=== PATIENT | female | born 1955 | race Caucasian/White ===

== ENCOUNTER 2019-05-12 15:25 | Inpatient (IN) | payer MEDICARE ==
[~2019-05-12] VITALS: Ht 152.4 cm; Wt 66.7 kg
[~2019-05-12 15:25] MED LIST: ASPIRIN EC81 MG PO; ASPIRIN81 MG PO; CATAPRES0.1 MG PO; CLONIDINE HCL0.1 MG PO; CRESTOR40 MG PO; ESIDRIX25 MG PO; FIORICET1 EA PO; FLUOXETINE HCL40 MG PO; GABAPENTIN300 MG PO; IMITREX25 MG PO; L-METHYLFOLATE15 MG PO; LEXAPRO10 MG PO; LISINOPRIL40 MG PO; METOPROLOL TART50 MG PO; NORVASC10 MG PO; OMEPRAZOLE20 MG PO; PROMETHAZINE HC50 MG PO; PROTONIX40 MG/ML PO; SAVELLA50 MG PO; ULTRAM 50MG50 MG PO; ZOCOR20 MG PO
[2019-05-12 16:09] LABS: BASOPHILS # (AUTO) 0.1 (0.0-0.1); BASOPHILS % 0.9 % (0.0-1.0); EOSINOPHILS # (AUTO) 0.3 (0.0-0.4); EOSINOPHILS % 4.7 % (0.0-6.0); HEMOGLOBIN 12.3 g/dL (12.0-16.0); LYMPHOCYTES # (AUTO) 1.9 (1.0-3.2); LYMPHOCYTES % 33.2 % (18.0-39.1); MEAN CORPUSCULAR HEMOGLOBIN 28.3 pg (28-32); MEAN CORPUSCULAR HGB CONC 31.5 g/dL (31-35); MEAN CORPUSCULAR VOLUME 89.9 fL (81-99); MONOCYTES # (AUTO) 0.4 (0.2-0.8); MONOCYTES % 7.2 % (4.4-11.3); NEUTROPHILS % 53.6 % (38.7-80.0); PLATELET COUNT 188 x10e3/uL (140-360); RED BLOOD COUNT 4.34 x10e6/uL (3.6-5.1); RED CELL DISTRIBUTION WIDTH 16.5 % (11.7-14.4)
[2019-05-12 16:17] LABS: INR 0.89; PROTHROMBIN TIME 12.5 seconds (11.9-14.5)
[2019-05-12 16:18] LABS: PARTIAL THROMBOPLASTIN TIME 26.7 seconds (23.8-35.5)
[2019-05-12] MEDS ORDERED: SODIUM CHLORIDE 0.9% 1000ML 1,000 ML IV STA (16:28)
[2019-05-12] MEDS ORDERED: SODIUM CHLORIDE 0.9% 1000ML 500 ML IV STA (16:28)
[2019-05-12] MEDS ORDERED: FAMOTIDINE 20 MG/2 ML VIAL IV STA (16:28)
[2019-05-12 16:31] LABS: ALANINE AMINOTRANSFERASE 14 IU/L (0-55); ALBUMIN 3.9 g/dL (3.5-5.0); ALBUMIN/GLOBULIN RATIO 1.3 (0.8-2.0); ALKALINE PHOSPHATASE 68 IU/L (40-150); ANION GAP 15.5 mmol/L (8-16); BLOOD UREA NITROGEN 18 mg/dL (7-26); BUN/CREATININE RATIO 12 (6-25); CARBON DIOXIDE 19 mmol/L (22-29); CHLORIDE 109 mmol/L (98-107); CREATINE KINASE 29 IU/L (29-168); CREATININE, SERUM 1.49 mg/dL (0.57-1.11); EST GLOMERULAR FILTRATION RATE 35 ML/MIN (60-); GLUCOSE 93 mg/dL (74-118); POTASSIUM 3.5 mmol/L (3.5-5.1); SODIUM 140 mmol/L (136-145)
--- NOTE | 2019-05-12 16:32 | Diagnostic Imaging Report ---
CT BRAIN WO HISTORY: Altered mental status COMPARISON: Reports from MRI of the brain 11/29/[address] 11/28/2016 Technique: Noncontrast axial scans were obtained from skull base to the vertex. Coronal and sagittal reconstructions obtained from the axial data. One or more of the following dose reduction techniques were used: Automated exposure control, adjustment of the mA and/or kV according to patient size, and/or utilization of iterative reconstruction technique. DISCUSSION: Scalp/Skull: Unremarkable. Brain sulci: Mildly prominent. Ventricles: Compensatory dilatation. Extra-axial spaces: No masses or fluid collections. Carotid siphon calcifications are present. Parenchyma: Mild bilateral deep white matter hypodensity is likely chronic microvascular ischemic change. There is an associated old left caudate lacunar infarct. Old focal cortical infarcts are seen in the left inferior parietal lobule and right inferior occipital lobe. Otherwise, no masses, hemorrhage, or large vascular territory acute infarct. Dural sinuses: No abnormal densities. Sellar/Suprasellar region: Intact. Skull base: Intact. Incidental findings: None. IMPRESSION: 1. No acute intracranial abnormalities. 2. Mild supratentorial chronic microvascular ischemic change. Mild generalized cerebral volume loss. 3. Old small left parietal and right occipital cortical infarct. Signed by: Dr. Sohail Moreira M.D. on 05/12/2019 4:28 PM
[2019-05-12 16:34] LABS: CLARITY,URINE SL CLOUDY (CLEAR); COLOR,URINE YELLOW (YELLOW); LEUKOCYTE ESTERASE ,URINE TRACE (NEGATIVE); NITRITE,URINE NEGATIVE (NEGATIVE)
[2019-05-12 16:35] LABS: BILIRUBIN,URINE 1+ (NEGATIVE); KETONES,URINE NEGATIVE (NEGATIVE); PROTEIN,URINE DIPSTICK 1+ (NEGATIVE); URINE UROBILINOGEN 0.2 mg/dL (0.2 - 1)
--- NOTE | 2019-05-12 16:35 | Diagnostic Imaging Report ---
EXAM: CHEST SINGLE (PORTABLE) DATE: 05/12/2019 3:49 PM INDICATION: Altered mental status COMPARISON: None FINDINGS: The trachea is midline. There are mild left basilar opacities suggestive of atelectasis. The lungs are otherwise symmetrically expanded without evidence for large focal consolidation, pneumothorax, or significant pleural effusion. The cardiomediastinal silhouette and pulmonary vasculature are within normal limits. No acute osseous abnormality is identified. The surrounding soft tissues are unremarkable. IMPRESSION: No acute cardiopulmonary process identified. Signed by: Dr. Cl Baca MD on 05/12/2019 4:32 PM
[2019-05-12] MEDS ORDERED: ONDANSETRON HCL INJ 2MG/ML 2ML 2 MG/ML VIAL IV PRN (16:45)
[2019-05-12 16:46] LABS: AMORPHOUS SEDIMENT,URINE MODERATE (FEW); BACTERIA,URINE MODERATE /HPF; EPITHELIAL CELLS,URINE MANY /LPF; MUCUS,URINE FEW (RARE); RBC,URINE 0-5 /HPF (0-5); TRANSITIONAL EPI CELLS,URINE MODERATE
[2019-05-12 17:00] LABS: MAGNESIUM 2.2 MG/DL (1.3-2.1)
[2019-05-12] MEDS ORDERED: FAMOTIDINE 20 MG/2 ML VIAL IV SCH (17:00)
--- NOTE | 2019-05-12 18:11 | NUR ---
Received patient from ER. Awake, alert. Respiration even and unlabored without SOB. Call light in reach.
[2019-05-12 18:27] VITALS: BP 147/77
[2019-05-12 19:00] VITALS: BP 132/71
--- NOTE | 2019-05-12 19:00 | NUR ---
Report given to assistant shift supervisor. Respiration even and unlabored without SOB. Call light in reach. Spouse at bedside.
[2019-05-12 20:00] VITALS: BP 132/71
[2019-05-12] MEDS: CEFTRIAXONE SOD 1 GM/NS 50 ML 50 ML IV SCH (20:22)
[2019-05-12] MEDS: SODIUM CHLORIDE 0.9% 1000ML 1,000 ML IV SCH (20:22)
[2019-05-12] MEDS ORDERED: GABAPENTIN 300 MG CAP PO SCH (21:00)
[2019-05-12] MEDS ORDERED: GABAPENTIN 400 MG CAP PO SCH (21:00)
[2019-05-12] MEDS ORDERED: ARICEPT5 MG PO (23:14)
[2019-05-12] MEDS ORDERED: LOSARTAN POTASS25 MG PO (23:14)
[2019-05-12] MEDS ORDERED: HYDROCHLOROTHIA25 MG PO (23:14)
[2019-05-12] MEDS ORDERED: LOPRESSOR25 MG PO (23:14)
[2019-05-12] MEDS ORDERED: OMEPRAZOLE40 MG PO (23:14)
[2019-05-12] MEDS ORDERED: ATORVASTATIN CA20 MG PO (23:14)
[2019-05-12] MEDS ORDERED: ALPRAZOLAM1 MG PO (23:14)
[2019-05-12] MEDS ORDERED: SERTRALINE HCL100 MG PO (23:14)
[2019-05-12] MEDS ORDERED: TRAZODONE HCL50 MG PO (23:14)
[2019-05-12] MEDS ORDERED: HYDROXYZINE HCL25 MG PO (23:14)
[2019-05-12] MEDS ORDERED: SPIRONOLACTONE25 MG PO (23:14)
[2019-05-13] VITALS (10 sets, daily range): BP systolic 117–162; BP diastolic 60–84
[2019-05-13 02:51] LABS: BASOPHILS % 0.9 % (0.0-1.0); EOSINOPHILS # (AUTO) 0.3 (0.0-0.4); EOSINOPHILS % 5.7 % (0.0-6.0); HEMATOCRIT 30.7 % (34.2-44.1); HEMOGLOBIN 10.1 g/dL (12.0-16.0); LYMPHOCYTES # (AUTO) 1.8 (1.0-3.2); LYMPHOCYTES % 40.5 % (18.0-39.1); MEAN CORPUSCULAR HEMOGLOBIN 29.2 pg (28-32); MEAN CORPUSCULAR HGB CONC 32.9 g/dL (31-35); MEAN CORPUSCULAR VOLUME 88.7 fL (81-99); MONOCYTES # (AUTO) 0.3 (0.2-0.8); NEUTROPHILS % 45.7 % (38.7-80.0); PLATELET COUNT 152 x10e3/uL (140-360); RED BLOOD COUNT 3.46 x10e6/uL (3.6-5.1); RED CELL DISTRIBUTION WIDTH 16.4 % (11.7-14.4)
[2019-05-13 03:54] LABS: ALBUMIN 2.9 g/dL (3.5-5.0); ALBUMIN/GLOBULIN RATIO 1.3 (0.8-2.0); ANION GAP 12.2 mmol/L (8-16); CREATININE, SERUM 1.22 mg/dL (0.57-1.11); PHOSPHORUS 4.1 MG/DL (2.3-4.7); POTASSIUM 3.2 mmol/L (3.5-5.1)
[2019-05-13 04:17] LABS: CREATINE KINASE 19 IU/L (29-168)
[2019-05-13] MEDS: SODIUM CHLORIDE 0.9% 1000ML 1,000 ML IV SCH (04:46)
[2019-05-13] MEDS ORDERED: PRAZOSIN HCL1 MG PO (05:41)
[2019-05-13] MEDS ORDERED: ONDANSETRON HCL INJ 2MG/ML 2ML 2 MG/ML VIAL IV PRN (06:15)
[2019-05-13] MEDS ORDERED: HYDRALAZINE HCL 20 MG/ML VIAL IV PRN (06:15)
[2019-05-13] MEDS ORDERED: CEFTRIAXONE SOD 1 GM/NS 50 ML 50 ML IV SCH (06:15)
[2019-05-13] MEDS ORDERED: ACETAMINOPHEN 325 MG TAB PO PRN (06:15)
[2019-05-13] MEDS ORDERED: ALPRAZOLAM 1 MG TAB PO PRN (06:15)
[2019-05-13] MEDS ORDERED: TRAZODONE HCL 50 MG TAB PO PRN ×2 (06:15→11:30)
--- NOTE | 2019-05-13 06:43 | NUR ---
New consult called for Dr. Osorio. No new orders will see patient today.
[2019-05-13] MEDS ORDERED: POTASSIUM CHLORIDE 20 MEQ TAB CR PO ONE (06:50)
--- NOTE | 2019-05-13 06:54 | NUR ---
New consult called for dr rogers.
[2019-05-13 06:57] LABS: CHOL/HDL RATIO 5.2 (3.0-3.6)
[2019-05-13 07:17] LABS: THYROID STIMULATING HORMONE 1.834 uIU/mL (0.350-4.940)
[2019-05-13] MEDS ORDERED: PANTOPRAZOLE SOD 40 MG TABEC PO SCH (07:30)
[2019-05-13] MEDS ORDERED: ESCITALOPRAM OXALATE 10 MG TAB PO SCH (09:00)
[2019-05-13] MEDS ORDERED: AMLODIPINE BESYLATE 10 MG TAB PO SCH (09:00)
[2019-05-13] MEDS: THIAMINE HCL INJ 100 MG/ML 2ML VIAL IV SCH (09:13)
[2019-05-13] MEDS: ASPIRIN 81 MG ENTERIC COATED PO SCH (09:15)
[2019-05-13] MEDS: HYDROCHLOROTHIAZIDE 25 MG TAB PO SCH (09:15)
[2019-05-13] MEDS: SERTRALINE HCL 100 MG TAB PO SCH (09:15)
[2019-05-13 11:11] LABS: CREATINE KINASE MB 0.5 ng/mL (0-5.0)
[2019-05-13] MEDS: ALPRAZOLAM 0.5 MG TAB PO PRN ×2 (12:06→20:39)
--- NOTE | 2019-05-13 13:21 | NUR ---
Back from MRI without distress. States she has a headache. Will continue to monitor
--- NOTE | 2019-05-13 14:15 | Diagnostic Imaging Report ---
Examination: MRI BRAIN WO CONTRAST History: Altered mental status. Confusion. Comparison studies: Head CT performed May 12, 2019 Technique: Axial DWI, FLAIR, T2, GRE or SWI, and axial, coronal and sagittal T1. Intravenous contrast: None Findings: Scalp: No abnormal signal. No masses. Bone marrow: Normal in signal intensity. Brain volume: Adequate for age. No volume loss. Ventricles: Normal in size and configuration. No hydrocephalus. Extra-axial spaces: No abnormalities. Parenchyma: There are punctate and subtle confluent areas of T2/FLAIR hyperintensity in the periventricular and subcortical white matter, nonspecific. Cortical-based area of chronic infarct is demonstrated in the superior parietal lobule. No masses, hemorrhage, or acute vascular insults. Suprasellar and sellar region: No abnormalities. Craniocervical junction: No abnormalities. The foramen magnum is patent. No Chiari malformations. Vessels: Normal flow-voids in the arteries and sinuses. Additional findings:None. IMPRESSION: No acute intracranial abnormalities. Mild chronic microvascular ischemic change. Chronic infarct in the left MCA-SALES TEAM RECRUITER watershed/ external border zone. Signed by: Dr. Beena Sandoval M.D. on 05/13/2019 2:11 PM
[2019-05-13] MEDS: CEFTRIAXONE SOD 1 GM/NS 50 ML 50 ML IV SCH (16:55)
--- NOTE | 2019-05-13 17:10 | NUR ---
ST Note: order for bedside swallow eval and speech and language eval noted. bedside swallow eval completed. speech and language eval deferred due to arrival of Dr. Osorio. will f/u to complete speech and language eval tomorrow 05/14/19.
--- NOTE | 2019-05-13 19:28 | Consultation ---
DATE OF CONSULTATION: 05/13/2019 Psychiatric Consultation REASON FOR CONSULTATION: To evaluate the patient's psychosis. HISTORY OF PRESENT ILLNESS: The patient is 64 years old female admitted to the hospital for altered mental status. Psychiatric consultation is called to evaluate the patient's psychosis. As per the medical record, the patient has history of CVA, hypertension and also dementia. Upon evaluation today, the patient is found to be in the room. She is alert, awake, and oriented to self, place and year, although she does the year. She knows the current president, but does not know the last president. She becomes tearful when she talks about her son who in a car accident a few years back. She reports depression. She denies any suicidal ideation and she wants to live for her great grand kids. She denies any issue with sleep. She reports intermittent issue with appetite. She denies any hallucination. The patient states her has been cussing at her for no reason and lying to her. She appears somewhat suspicious. She agrees for Psychiatry to talk to the family members for collateral information. As per nursing staff, the patient has been intermittently confused. She has been having hallucinations as per report. She has been calm and not agitated. PAST PSYCHIATRIC HISTORY: The patient reported seeing a provider at [facility]. She was diagnosed with depression, anxiety, and panic attack. She attempted suicide once in the past. She denies alcohol or drug abuse. FAMILY HISTORY: Her son who had paranoid schizophrenia. SOCIAL HISTORY: The patient lives with her , daughter and grand son. MENTAL STATUS EXAM: The patient is an elderly female. She is alert, awake and oriented to situation. Her mood is depressed. Affect is congruent with mood . Psychomotor status is not restless. She denies any suicidal or homicidal ideation. She denies any hallucination. Thought process is concrete. No delusion elicited. Insight and judgment fair. Memory appears to be grossly impaired. There may be some delusion. CURRENT MEDICATIONS: 1. Zoloft 200 mg p.o. daily. 2. Hydrochlorothiazide. 3. Aspirin. 4. Pantoprazole. 5. Thiamine. 6. Ceftriaxone. 7. Trazodone 100 mg p.o. at bedtime as needed. 8. Aricept 5 mg p.o. at bedtime. 9. Xanax p.o. b.i.d. as needed. 10. Minipress 1 mg p.o. at bedtime. 11. Atorvastatin. 12. Hydralazine. 13. Ondansetron. 14. Acetaminophen. CURRENT LABS: WBC is 4.40, RBC 3.46, hemoglobin 10.1, hematocrit 30.7 and platelets 152. Chemistry, sodium is 142, potassium 3.2, chloride 112, CO2 of 21, BUN 17, creatinine 1.22. AST 8, ALT 9. ASSESSMENT: 1. Major depressive disorder, recurrent, moderate. 2. Unspecified psychosis/delirium. 3. Unspecified dementia with behavior disturbances. PLAN OF TREATMENT: 1. Increase Aricept to 10 mg p.o. at bedtime. 2. Reduce Xanax to 0.5 mg p.o. b.i.d. 3. Continue Minipress 1 mg p.o. at bedtime. 4. Continue Zoloft 200 mg p.o. daily. 5. Add Abilify 2 mg p.o. daily. 6. Monitor for mood. 7. Supportive therapy. Thank you for this consultation. I called the over the phone with the patient's permission, but unable to reach him and voicemail was left. Dictated by Nany Tong PA-C Carrol Urena MD QTV/MODL /[id number]
--- NOTE | 2019-05-13 19:41 | NUR ---
Received bedside report from day nurse. Patient awake and resting in bed, no s/s of distress or c/o pain at this time. All safety measures in place. Will continue to monitor.
[2019-05-13] MEDS ORDERED: ATORVASTATIN 40 MG TAB PO SCH (21:00)
[2019-05-13] MEDS ORDERED: PRAZOSIN HCL 1 MG CAP PO SCH (21:00)
[2019-05-13] MEDS ORDERED: DONEPEZIL HCL 5 MG TAB PO SCH ×2 (21:00)
[2019-05-13 21:08] LABS: AMPHETAMINES SCREEN,URINE NEGATIVE (NEGATIVE); BENZODIAZEPINES SCREEN,URINE POSITIVE (NEGATIVE); PHENCYCLIDINE SCREEN,URINE NEGATIVE (NEGATIVE)
[2019-05-14] VITALS: BP 135/61
[2019-05-14 03:47] LABS: EOSINOPHILS # (AUTO) 0.2 (0.0-0.4); EOSINOPHILS % 5.5 % (0.0-6.0); HEMATOCRIT 34.2 % (34.2-44.1); HEMOGLOBIN 10.9 g/dL (12.0-16.0); LYMPHOCYTES # (AUTO) 1.5 (1.0-3.2); LYMPHOCYTES % 40.3 % (18.0-39.1); MEAN CORPUSCULAR HEMOGLOBIN 28.7 pg (28-32); MEAN CORPUSCULAR HGB CONC 31.9 g/dL (31-35); MONOCYTES # (AUTO) 0.2 (0.2-0.8); MONOCYTES % 6.3 % (4.4-11.3); NEUTROPHILS # (AUTO) 1.8 (2.1-6.9); NEUTROPHILS % 46.6 % (38.7-80.0); PLATELET COUNT 156 x10e3/uL (140-360); RED CELL DISTRIBUTION WIDTH 16.3 % (11.7-14.4)
[2019-05-14 04:00] VITALS: BP 118/66
[2019-05-14 04:10] LABS: ANION GAP 13.3 mmol/L (8-16); CALCIUM 9.2 mg/dL (8.4-10.2); CREATININE, SERUM 1.14 mg/dL (0.57-1.11); POTASSIUM 3.3 mmol/L (3.5-5.1)
[2019-05-14] MEDS ORDERED: POTASSIUM CHLORIDE 20 MEQ TAB CR PO STA (06:03)
[2019-05-14] MEDS ORDERED: ARICEPT5 MG PO (06:09)
[2019-05-14] MEDS ORDERED: ALPRAZOLAM0.5 MG PO (06:09)
[2019-05-14] MEDS ORDERED: VITAMIN B-121000 MCG PO (06:19)
[2019-05-14] MEDS ORDERED: ACETAMIN/BUTALBITAL/CAFFEINE TAB PO ONE (06:30)
--- NOTE | 2019-05-14 07:08 | NUR ---
Bedside report given to day nurse. Patient resting in bed, no s/s of distress or c/o pain at this time. All safety measures in place.
[2019-05-14 07:38] VITALS: BP 136/74
[2019-05-14 08:00] VITALS: BP 136/74
--- NOTE | 2019-05-14 08:32 | NUR ---
Discharge instructions and prescriptions given to the patient, she verbalized understanding. She is trying to arrange transportation.
[2019-05-14] MEDS ORDERED: CYANOCOBALAMIN 1,000 MCG TAB PO SCH (09:00)
[2019-05-14] MEDS: THIAMINE HCL INJ 100 MG/ML 2ML VIAL IV SCH (09:00)
[2019-05-14] MEDS ORDERED: ARIPIPRAZOLE 2 MG TABLET PO SCH (09:00)
[2019-05-14] MEDS: ASPIRIN 81 MG ENTERIC COATED PO SCH (09:14)
[2019-05-14] MEDS: HYDROCHLOROTHIAZIDE 25 MG TAB PO SCH (09:15)
[2019-05-14] MEDS: SERTRALINE HCL 100 MG TAB PO SCH (09:15)
--- NOTE | 2019-05-14 11:09 | NUR ---
Spoke to pt at bedside. Declines need for home health therapy at this time. Pt states she has been getting up and walking around her hospital room. States she has a rollator and rolling walker at home and her family is there for assistance.
--- NOTE | 2019-05-14 11:18 | NUR ---
Patient left the floor via wheelchair, she is discharged home.
--- NOTE | 2019-05-14 16:09 | Consultation ---
DATE OF CONSULTATION: 05/13/2019 Neurology Consult Note HISTORY OF PRESENT ILLNESS: Ms. Connor is a 64-year-old woman with past medical history significant for hypertension, hyperlipidemia, prior transient ischemic attack, prior stroke with residual dysarthria and right hemiparesis, and demential, admitted to [facility] as an inpatient on May 12, 2019, with worsening confusion. Unfortunately, there are no family members available to provide a medical history. History is obtained from review of the electronic medical record. Ms. Connor was brought to the emergency center at [facility] on May 12, 2019, with worsening of baseline confusion, worsening of baseline dysarthria, and possible worsening of baseline right hemiparesis since the morning of admission. Upon arriving in the emergency center, the patient's temperature was 99.2, blood pressure was 187/99 mmHg, and pulse was 65 beats per minute. The neurological examination in the emergency department was significant for dysarthria. No other deficits were noted. Specifically, there were no noted deficits in attention, orientation, cranial nerves, strength, or sensation. While in the emergency center, routine blood and urine studies were significant for an elevated creatinine of 1.49 with an estimated GFR of 35. A urinalysis showed evidence of possible urinary tract infection. A CT of the brain without contrast performed in the emergency center revealed no acute ischemia or hemorrhage. Ms. Connor was subsequently admitted to [facility] as an inpatient for further evaluation and treatment of her symptoms. As stated above, the patient experienced stroke in November 2016 in the left middle cerebral artery-posterior cerebral artery distribution. Residual deficits from the stroke include dysarthria, right hemiparesis, right hemihypoesthesia, poor balance, impairment of gait. According to the patient, she was diagnosed with dementia approximately one month ago. When asked how the diagnosis was made, the patient responds it was done by "the doctor taking a picture of my brain." Ms. Connor could not recall the name of her neurologist. The patient is taking methadone 10 mg by mouth at bedtime daily. On day prior to admission, the patient underwent a nuclear cardiac stress test. She reportedly experienced a "bad reaction" to the injected dye and had to be transferred to the emergency center for further care. During this time, Ms. Connor reports seeing her mother. The patient states her mother told her, "it is not time for you yet," then disappeared. Ms. Connor does not report fevers or chills over the past few days. She does not report shortness of breath, wheezing, or productive cough. The patient does report abdominal pain with frequent bouts of diarrhea over the past 2 to 3 days. Ms. Connor reports a sharp pain with urination, vaginal discharge, urinary frequency, and urinary urgency. The patient does report a history of bladder and bowel incontinence. REVIEW OF SYSTEMS: Abdominal pain, diarrhea, bladder/bowel incontinence, urinary frequency, urinary urgency, sharp pain with urination, vaginal discharge, confusion, dysarthria, weakness of the right arm and right leg, numbness over the right arm and right leg, visual hallucinations. Otherwise, a 12-point review of systems is negative. PAST MEDICAL HISTORY: 1. Hypertension. 2. Hyperlipidemia. 3. Chronic kidney disease, stage 3. 4. Depression/anxiety disorder. 5. Prior transient ischemic attack. 6. Prior stroke with residual deficits as per the history of present illness. 7. Dementia, prior cardiac arrest. PAST SURGICAL HISTORY: 1. Partial hysterectomy. 2. Unilateral oophorectomy. 3. Abdominoplasty/breast reduction. 4. Left arm surgery. PAST HOSPITALIZATIONS: Surgeries/procedures as listed: 1. Multiple hospitalizations for hypertensive urgency/emergency. 2. Transient ischemic attack. 3. Stroke. FAMILY MEDICAL HISTORY: The patient's father is . His medical history included diabetes mellitus and stroke. Ms. Connor is mother is . Her medical history included diabetes mellitus, stroke, and cancer. Ms. Connor has two siblings, a brother and a sister, both of whom are alive. Both siblings have diabetes mellitus. The sister has had cancer as well. SOCIAL HISTORY: Ms. Connor is . She is more awake. The patient does not report current or prior tobacco, alcohol, or recreational drug use. HOME MEDICATIONS: 1. Alprazolam 0.5 mg by mouth twice daily as needed for anxiety. 2. Atorvastatin 40 mg by mouth at bedtime daily. 3. Donepezil 10 mg by mouth at bedtime daily. 4. Hydrochlorothiazide 50 mg by mouth daily. 5. Losartan 25 mg by mouth daily. 6. Omeprazole 40 mg by mouth daily. 7. Prazosin 1 mg by mouth at bedtime daily. 8. Sertraline 200 mg by mouth daily. 9. Trazodone 100 mg by mouth at bedtime as needed for insomnia. HOSPITAL MEDICATIONS: 1. Acetaminophen. 2. Alprazolam. 3. Aripiprazole. 4. Aspirin. 5. Atorvastatin. 6. Ceftriaxone. 7. Donepezil. 8. Hydralazine. 9. Hydrochlorothiazide. 10. Zofran. 11. Protonix. 12. Prazosin. 13. Sertraline. 14. Thiamine. 15. Trazodone. ALLERGIES: NO KNOWN DRUG ALLERGIES. NO KNOWN FOOD ALLERGIES. NO KNOWN ALLERGIES TO LATEX. NO KNOWN ALLERGIES TO IODINE OR OTHER CONTRAST MATERIALS. PHYSICAL EXAMINATION: VITAL SIGNS: Height 60 inches, weight 147 pounds, and BMI 28.7 kg/m2. Blood pressure 156/81 mmHg, pulse 68 beats per minute, respiratory rate 20 breaths per minute, and oxygen saturation 99% on room air. GENERAL: The patient is awake and alert, does not appear distressed. Overweight. Inconsistently follows commands. HEENT: Normocephalic and atraumatic. Pupils are equal, round, and reactive to light. Moist mucous membranes. NECK: Supple. No appreciable thyromegaly. No appreciable carotid bruits. CARDIOVASCULAR: S1 and S2, regular rate and rhythm. No murmurs, rubs, or gallops. RESPIRATORY: Clear to auscultation bilaterally. No wheeze, rhonchi, or rales. EXTREMITIES: The skin is warm and dry. No clubbing, cyanosis, or edema. The posterior tibial and dorsalis pedis pulses are 2+ and symmetric. SKIN: No rashes or lesions. NEUROLOGIC: Memory/Attention: The patient is awake and alert, oriented to person, place (hospital, [facility], [facility] [place], state), time (month, year), and minimally to situation. Cranial Nerves: Cranial nerve I - not tested. Cranial nerve II, III, IV, and - pupils are equal and round, react briskly to light (from 4 mm to 2 mm). Extraocular movements are grossly intact. No nystagmus. Cranial nerve V - sensation to light touch and pinprick is diminished over the right V1 through V3 distributions. Strength in the temporalis and masseter muscles is within normal limits. Cranial nerve VII - the face is subtly asymmetric on the right as are all facial movements. Very mild right central facial weakness is appreciated. Cranial nerve VIII - hearing is diminished to finger rub bilaterally. Cranial nerve IX, complicated-the soft palate elevates equally and symmetrically. Cranial nerve XI strength of the bilateral sternocleidomastoid and trapezius muscles. Cranial nerve XII-tongue protrudes midline and moves symmetrically from [id number]. Strength: Bulk is diminished in the right arm and right leg. Strength is 5/5 in the left deltoid, biceps, triceps, wrist flexors and extensors, finger flexors and extensors, intrinsic hand muscles, hip flexors, knee flexors and extensors, ankle dorsiflexion and plantar flexion, and intrinsic foot muscles. Tone is normal in the left arm and left leg. Strength is grossly 4/5 in the right arm flexors and 4- /5 in the right arm extensors. Strength is grossly 4- out of five in the right leg flexors and 4/5 in the right leg extensors. Tone is mildly increased in the right arm and right leg. DTRs: Deep tendon reflexes are 2+ at the left triceps, biceps, brachioradialis, patella, and Achilles. Deep tendon reflexes are 3+ at the right triceps, biceps, brachioradialis, patella, and Achilles. Plantar responses are flexor on the left, mute on the right. Sensation: Sensation is diminished to light touch and pinprick over the right arm and right leg. Cerebellar: [id number] and heel-weiss movements are dysmetric on the right, but within the bounds of paresis. Gait: Deferred. Speech: Spontaneous speech is mildly dysarthric with possible receptive aphasia. Repetition is intact. Involuntary movements: None. Pronator Drift: Right arm and right leg. LABORATORY DATA: A most recent comprehensive metabolic panel significant for potassium of 3.2, chloride 112, carbon dioxide of 21, creatinine of 1.22, GFR 44, calcium of 8.0, total protein is 5.2, and albumin of 2.9. Cardiac enzymes are negative x3. Lipase 44. B-natriuretic peptide 120.6. Total cholesterol 165, triglycerides 106, LDL cholesterol 112, and HDL cholesterol 32. TSH 1.834. The CBC with differential and platelets reveals a white blood cell count of 4.40 with a right shift with 45.7% neutrophils, 40.5% lymphocytes, 7.0% monocytes, 5.7% eosinophils,and 0.9% basophils. The hemoglobin and hematocrit 10.1 and 30.7, respectively. The platelet count is 152. A coagulation profile is within normal limits. Urinalysis collected on May, reveals slightly cloudy urine with specific gravity of 1.020, 1+ protein, traceblood, 1+ bilirubin, trace leukocyte esterase, 6-10 white blood cells, moderate bacteriawith moderate urine transitional epithelial cells, moderate amorphous sediment, 2-5 hyaline casts, and few urine mucus. A urine culture collected on May 12, 2019, there was no growth at 18 to 24 hours. Blood cultures collected on May 12, 2019, attending. DIAGNOSTIC STUDIES: Electrocardiogram, 05/12/2019: Normal sinus rhythm at 68 beats per minute. Chest x-ray, 05/12/2019: No acute cardiopulmonary process identified. CT of the brain without contrast, 05/12/2019: On my review, there is no evidence of recent large territorial ischemia, hemorrhage, mass, or mass effect. A chronic lacunar infarct is seen in the left caudate nucleus. Prior vascular insult is observed in the left MCA, PLATING INSPECTOR watershed distribution. There is mild diffuse cerebral atrophy with compensatory dilatation of the ventricles, more than expected for the patient's age. Their findings compatible with [id number] chronic small-vessel ischemic disease. Echocardiogram, 05/13/2019: Ejection fraction 50% to 55%. Concentric left ventricular hypertrophy. Left atrial enlargement. Trace aortic insufficiency and tricuspid regurgitation. Mild mitral regurgitation. MRI of the brain without contrast, 05/13/2019: Unchanged from CT of the brain without contrast, dated 05/12/2019: ASSESSMENT AND PLAN: Ms. Connor is a 64-year-old woman with past medical history as detailed, admitted to [facility] as an inpatient on May 12, 2019, with worsening of baseline confusion, worsening of baseline dysarthria, and possible worsening of baseline right hemipareses. The patient has undergone a thorough neurological examination with findings detailed above. The patient's laboratory data and other diagnostic studies have been reviewed and are documented above. In my opinion, Ms. Connor is experiencing a metabolic encephalopathy (urinary tract infection, acute kidney injury, medication effect, superimposed on baseline dementia. RECOMMENDATIONS: Are as follows: 1. Additional laboratory data will be obtained to evaluate other possible causes of encephalopathy. This will include: An ammonia level, vitamin B1 level, vitamin B 6 level, vitamin B12 level, folate, methylmalonic acid, urine drug screen, and blood alcohol level. Blood and urine cultures have been collected; follow up those results. 2. Dementia: Continue treatment with the patient's home medication of donepezil 10 mg by mouth at bedtime daily. 3. Limit treatment with sedative/hypnotic and pain medications as these will alter the patient's sensorium. 4. Utilize environmental cues to limit delirium. 5. Defer treatment of the remaining medical comorbidities to the primary and other services following the patient. 6. Anticipated disposition: custodial facility in 2-3 days. TIME SPENT: 70 minutes. Thank you for this consultation. I will continue to follow the patient while she remains in the hospital. Hillary Osorio MD CP/GADIEL /[id number] MTDD
--- NOTE | 2019-05-17 04:18 | Discharge Summary ---
ADMISSION DIAGNOSES: Altered mental status with slurred speech; urinary tract infection , present on admission; hypertension with chronic kidney disease stage 3, chronic kidney disease stage 3, anxiety, depression, dementia. DISCHARGE DIAGNOSES: Altered mental status with slurred speech; urinary tract infection , present on admission; hypertension with chronic kidney disease stage 3, chronic kidney disease stage 3, anxiety, depression, dementia; rule out cerebrovascular accident. HISTORY: Hypertension, CVA, CKD stage 3, anxiety, depression, fibromyalgia, dementia. SURGICAL HISTORY: Left arm, lumpectomy, tummy tuck, breast reduction, partial hysterectomy, oophorectomy. FAMILY HISTORY: The patient's mother, father, brother, and sister had diabetes. The patient's sister and mother had cancer. The patient's mother and father had a stroke. SOCIAL HISTORY: Noncontributory. HOSPITAL COURSE: A 64-year-old female admits with complaints of AMS and slurred speech since yesterday. She also complains of left-sided weakness. She says she has been having dysuria for about a month. On admission, the patient's EKG showed normal sinus rhythm. CT of the brain showed no acute abnormalities. MRI of the brain showed no acute abnormality. Blood culture was negative. Urine culture was negative. The patient's urine drug screen came back positive for cannabis and benzos. After speaking to her, the patient admits to smoking marijuana sometimes to help with her fibromyalgia pain. The patient's bilateral carotid Doppler was negative. Echo showed an EF of 50% to 55%. Psychology was consulted, who increased the patient's Aricept and decreased her Xanax. The patient will discharge home with new prescription for Xanax and Aricept. Her home medicines of hydroxyzine were stopped due to the sedating effects. Her metoprolol was stopped due to bradycardia. She remain in normal sinus on tele without the metoprolol and her spironolactone, the patient is unsure why that is on her med rec. The patient passed her swallow evaluation and with minimal assistance per PT evaluation. Her ammonia was within normal limits. Her B12 was low at 81, so she was also given a prescription for B12 supplement. The patient will discharge home and follow up with primary care in 1 to 2 weeks. The patient understands discharge instructions and agrees to plan. Dictated by Lynne Nuno NP MD MICK Rich/GADIEL /[id number]
--- OUTSIDE RECORDS SUMMARY | 2019-05-22 10:38 | XMS REPORT | Summary of Care ---
Author Author Nona Gore R.N. Unknown Address Unknown Phone Unavailable Care Team Providers Care Physiology Teacher Name Role Phone Nona Gore R.N. Unavailable Unavailable BALBIR HERRERA M.D. 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 ( 0.5mg ) Quantity: 180 Active Gabapentin 400 MG TABS TAKE 1 TABLET 3 TIMES DAILY. * Refills: 0 Active Metoprolol Succinate ER 50 MG Oral Tablet Extended Release 24 Hour TAKE 1 TABLET BY MOUTH ONCE DAILY * Quantity: 30 Refills: 3 Active Omeprazole 20 MG Oral Tablet Delayed Release 1 tablet daily * Refills: 0 Active HydrOXYzine HCl - 25 MG Oral Tablet TAKE 1 TABLET TWICE DAILY. * Refills: 0 Active BuPROPion HCl ER (XL) 150 MG Oral Tablet Extended Release 24 Hour TAKE 1 TABLET DAILY * Refills: 1 Active NIFEdipine ER 60 MG Oral Tablet Extended Release 24 Hour TAKE 1 TABLET DAILY * Refills: 1 Active Hydrocodone-Acetaminophen 5-325 MG Oral Tablet TAKE ONE TABLET BY MOUTH EVERY 8 HOURS NEEDED FOR PAIN. * Quantity: 20 Refills: 0 Active Rosuvastatin Calcium 40 MG Oral Tablet TAKE 1 TABLET BY MOUTH DAILY * Refills: 0 Active Lisinopril-Hydrochlorothiazide 20-25 MG Oral Tablet TAKE 1 TABLET DAILY. * Quantity: 90 Refills: 2 Active DULoxetine HCl - 60 MG Oral Capsule Delayed Release Particles TAKE 1 CAPSULE BY MOUTH EVERY DAY DIRECTED * Quantity: 60 Refills: 0 Active Ibuprofen 400 MG Oral Tablet TAKE 1 TABLET BY MOUTH 4 TIMES DAILY NEEDED * Quantity: 120 Refills: 0 BALBIR HERRERA M.D. * Start : 19-Aug-2017 Active Allergies and Adverse Reactions Name Dates Details No Known Drug Allergies (Allergy) Status: Active Past Medical History Name Dates Details History of arthritis (V13.4, Z87.39) Status: Resolved History of Chronic kidney disease, stage III (moderate) (585.3, N18.3) Status: Resolved History of Depressive disorder (311, F32.9) Status: Resolved History of Essential hypertension, benign (401.1, I10) Status: Resolved History of fibromyalgia (V13.59, Z87.39) Status: Resolved History of gastroesophageal reflux (GERD) (V12.79, Z87.19) Status: Resolved History of headache (V13.89, Z87.898) Status: Resolved History of hyperparathyroidism (V12.29, Z86.39) Status: Resolved History of hypothyroidism (V12.29, Z86.39) Status: Resolved History of migraine (V12.49, Z86.69) Status: Resolved History of Morbid obesity (278.01, E66.01) Status: Resolved History of sleep apnea (V13.89, Z86.69) Status: Resolved Procedures Procedure Dates Details History of Hysterectomy Completed History of Breast Surgery Completed History of Biopsy Lymph Node Completed History of Abdominoplasty Completed History of Additional Bilateral Renal Artery Catheterization Via Aorta Completed Immunization Name Dates Details Immunizations not documented Family History Name Dates Details Family history of diabetes mellitus (V18.0, Z83.3) Status: Active Family history of essential hypertension (V17.49, Z82.49) Status: Active Name Dates Details Family history of diabetes mellitus (V18.0, Z83.3) Status: Active Family history of essential hypertension (V17.49, Z82.49) Status: Active Name Dates Details Family history of cardiac disorder (V17.49, Z82.49) Status: Active Social History Name Dates Details - Status: Name Dates Details Never smoker Vital Signs Date Test Result Details No Known Vitals to report Results Date Description Value Details Results not documented Plan of Care Name Dates Details Planned Observations Planned Goals not documented Interventions Provided Medication Changes* Ibuprofen 400 MG Oral Tablet - Renew Instructions Name Dates Details Instructions not documented Encounters Appointment; MARTINEZ LEWIS M.D. Encounter Diagnosis: Problem not documented On: 13-Jun-2017 14:30 Appointment; MARTINEZ LEWIS M.D. Encounter Diagnosis: Problem not documented On: 09-Jul-2017 10:00 Appointment; MARTINEZ LEWIS M.D. Encounter Diagnosis: Problem not documented On: 09-Jul-2017 10:00 Appointment; MARTINEZ LEWIS M.D. Encounter Diagnosis: Problem not documented On: 06-Aug-2017 11:15 Appointment; BALBIR HERRERA M.D. Encounter Diagnosis: Problem not documented On: 19-Aug-2017 9:00
--- OUTSIDE RECORDS SUMMARY | 2019-05-22 10:39 | XMS REPORT ---
Author [facility] Address Unknown Phone Unavailable Care Team Providers Care Ed Transporter Name Role Phone APRIL BARRERA Unavailable Unavailable Payers Payer Name Policy Type Policy Number Effective Date Expiration Date Problems This patient has no known problems. Allergies, Adverse Reactions, Alerts Allergy Name Allergy Type Status Severity Reaction(s) Onset Date Inactive Date Treating Clinician Comments No Known Allergies DA Active U 2019-05-11 00:00:00 No Known Allergies DA Active U 2019-04-22 00:00:00 No Known Allergies DA Active U 2017-04-08 00:00:00 Medications This patient has no known medications. Results Test Description Test Time Test Comments Text Results Atomic Results Result Comments MRI BRAIN WO 2019-05-13 14:08:00 [place] [address] Patient Name: JUSTIN MILLER MR #: [id number] : 1955 Age/Sex: 64/F Req #: [id number] Adm Physician: APRIL BARRERA MD Ordered by: Jessica Anderson MANAGER DOCUMENTATION Report #: [id number] Location: MED/SURG2 Room/Bed: [facility] Procedure: [id number] MRI/MRI BRAIN WO Exam Date: Exam Time: REPORT STATUS: Signed Examination: MRI BRAIN WO CONTRAST History: Altered mental status. Confusion. Comparison studies: Head CT performed May 12, 2019 Technique: Axial DWI, FLAIR, T2, GRE or SWI, and axial, coronal and sagittal T1. Intravenous contrast: None Findings: Scalp: No abnormal signal. No masses. Bone marrow: Normal in signal intensity. Brain volume: Adequate for age. No volume loss. Ventricles: Normal in size and configuration. No hydrocephalus. Extra-axial spaces: No abnormalities. Parenchyma: There are punctate and subtle confluent areas of T2/FLAIR hyperintensity in the periventricular and subcortical white matter, nonspecific. Cortical-based area of chronic infarct is demonstrated in the superior parietal lobule. No masses, hemorrhage, or acute vascular insults. Suprasellar and sellar region: No abnormalities. Craniocervical junction: No abnormalities. The foramen magnum is patent. No Chiari malformations. Vessels: Normal flow- voids in the arteries and sinuses. Additional findings:None. IMPRESSION: No acute intracranial abnormalities. Mild chronic microvascular ischemic change. 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 Signed by: Dr. Norma Sandoval M.D. on 05/13/2019 2:11 PM Dictated By: NORMA JOSEPH MD 1411 Transcribed By: FIONA on 05/13/19 1411 COPY TO: JESSICA ANDERSON MANAGER DOCUMENTATION CHEST SINGLE (PORTABLE) 2019-05-12 16:30:00 [place] [address] Patient Name: JUSTIN MILLER MR #: [id number] : 1955 Age/Sex: 64/F Req #: [id number] Adm Physician: Ordered by: PHANI VALDEZ MANAGER DOCUMENTATION Report #: [id number] Location: ER Room/Bed: Procedure: [id number] DX/CHEST SINGLE (PORTABLE) Exam Date: 05/12/19 Exam Time: 1605 REPORT STATUS: Signed EXAM: CHEST SINGLE (PORTABLE) DATE: 05/12/2019 3:49 PM INDICATION: Altered mental status COMPARISON: None FINDINGS: The trachea is midline. There are mild left basilar opacities suggestive of atelectasis. The lungs are otherwise symmetrically expanded without evidence for large focal consolidation, pneumothorax, or significant pleural effusion. The cardiomediastinal silhouette and pulmonary vasculature are within normal limits. No acute osseous abnormality is identified. The surrounding soft tissues are unremarkable. IMPRESSION: No acute cardiopulmonary process identified. Signed by: Dr. Cl Baca MD on 05/12/2019 4:32 PM Dictated By: CL BACA MD 163 Transcribed By: FIONA on 05/12/191631 COPY TO: PHANI VALDEZ NP CT BRAIN WO 2019-05-12 16:24:00 [place] [address] Patient Name: JUSTIN MILLER MR #: [id number] : 1955 Age/Sex: 64/F Req #: [id number] Adm Physician: Ordered by: PHANI VALDEZ MANAGER DOCUMENTATION Report #: [id number] Location: ER Room/Bed: Procedure: [id number] CT/CT BRAIN WO Exam Date: 05/12/19 Exam Time: 1552 REPORT STATUS: Signed CT BRAIN WO HISTORY: Altered mental status COMPARISO N: Reports from MRI of the brain 11/29/[address] 11/28/2016 Technique: Noncontrast axial scans were obtained from skull base to the vertex. Coronal and sagittal reconstructions obtained from the axial data. One or more of the following dose reduction techniques were used: Automated exposure control, adjustment of the mA and/or kV according to patient size, and/or utilization of iterative reconstruction technique. DISCUSSION: Scalp/Skull: Unremarkable. Brain sulci: Mildly prominent. Ventricles: Compensatory dilatation. Extra-axial spaces: No masses or fluid collections. Carotid siphon calcifications are present. Parenchyma: Mild bilateral deep white matter hypodensity is likely chronic microvascular ischemic change. There is an associated old left caudate lacunar infarct. Old focal cortical infarcts are seen in the left inferior parietal lobule and right inferior occipital lobe. Otherwise, no masses, hemorrhage, or large vascular territory acute infarct. Dural sinuses: No abnormal densities. Sellar/Suprasellar region: Intact. Skull base: Intact. Incidental findings: None. IMPRESSION: 1. No acute intracranial abnormalities. 2. Mild supratentorial chronic microvascular ischemic change. Mild generalized cerebral volume loss. 3. Old small left parietal and right occipital cortical infarct. Signed by: Dr. Sohail Moreira M.D. on 05/12/2019 4:28 PM Dictated By: SOHAIL MOREIRA MD 27 Transcribed By: FIONA on 05/12/191627 COPY TO: PHANI VALDEZ NP BASIC METABOLIC PANEL 2019-05-11 14:30:00 SODIUM (test code=NA) 137 mmol/L 136-145 POTASSIUM (test code=K) 3.9 mmol/L 3.5-5.1 CHLORIDE (test code=CL) 105.0 mmol/L 98-107 CARBON DIOXIDE (test code=CO2) 21.0 mmol/L 21-32 ANION GAP (test code=GAP) 14.9 10-20 GLUCOSE (test code=GLU) 97 mg/dL 74-106 BLOOD UREA NITROGEN (test code=BUN) 19 mg/dL 7-18 GLOMERULAR FILTRATION RATE (test code=GFR) 35 mL/min >=60 Estimated GFR by using Modified MDRD formula.Chronic kidney disease is defined as either kidney damageor GFR <60 mL/min/1.73 m2 for >3 months. CREATININE (test code=CREAT) 1.50 mg/dL 0.55-1.02 Note change in reference range due to change in reagent. BUN/CREATININE RATIO (test code=BUN/CREA) 12.8 10-20 CALCIUM (test code=CA) 9.1 mg/dL 8.5-10.1 HEPATIC FUNCTION [id number] 14:30:00* Test Item Value Reference Range Comments TOTAL PROTEIN (test code=PROT) 7.4 gram/dL 6.4-8.2 ALBUMIN (test code=ALB) 3.9 g/dL 3.4-5.0 GLOBULIN (test code=GLOB) 3.5 gram/dL 2.7-4.2 ALBUMIN/GLOBULIN RATIO (test code=A/G) 1.1 0.75-1.50 BILIRUBIN TOTAL (test code=BILT) 0.70 mg/dL 0.0-1.0 BILIRUBIN DIRECT (test code=BILD) 0.18 mg/dL 0.0-0.20 SGOT/AST (test code=AST) 11 IUnit/L 15-37 SGPT/ALT (test code=ALT) 22 IUnit/L 12-78 ALKALINE PHOSPHATASE TOTAL (test code=ALKP) 72 IUnit/L 45-117 Note change in reference range due to change in reagent. [id number] 14:30:00* Test Item Value Reference Range Comments TROPONIN-I (test code=TROPI) <0.015 ng/mL 0-0.045 - XR CHEST 1 [id number] 14:19:00 FAX: Alfonso Ascencio MD [phone] [place]: [address] St: REG FAX: Siddhartha Moreland DO [phone] Name: JUSTIN MILLER [facility] : 1955 Age/S: 64/F [address] Unit #: [id number] Loc: [place] [address] Phys: Alfonso Ascencio MD Acct: [id number] Dis Date: Status: REG ER PHONE #: [phone] Exam Date: 05/11/2019 1328 FAX #: [phone] Reason: AMS EXAMS: CPT CODE: [id number] XR CHEST 1 V [id number] REASON FOR EXAM: AMS Exam Order Date: 05/11/2019 12:44 PM Ordering M.D.: Alfonso Ascencio MD PROCEDURE: - XR CHEST 1 V COMPARISON: Frontal chest x-ray April 22, 2019 FINDINGS: The lungs are clear. There is no pleural effusion or pneumothorax. Pulmonary vascularity is within normal limits. Cardiomediastinal silhouette is prominent but stable in size. The mediastinal contours are within normal limits. Musculoskeletal structures are within normal limits. The visualized upper abdomen is within normal limits. IMPRESSION: No acute cardiopulmonary process. Location: [facility] ally Signed by Jimmy Gaspar MD on 05/11/2019 at 1419 Repo rted and signed by: Jimmy Gaspar MD CC: Alfonso Ascencio MD; Sudhakar Alegria DO Technologist: MIMA BRYAN RT(R) Trnscrd Date/Time/By: 05/11/2019 (5430) : By: [email or web address] Orig Print D/T: S: 05/11/2019 (9696) PAGE 1 Signed Report BASIC METABOLIC PANEL 2019-05-11 14:08:00* Test Item Value Reference Range Comments SODIUM (test code=NA) 137 mmol/L 136-145 POTASSIUM (test code=K) 3.9 mmol/L 3.5-5.1 CHLORIDE (test code=CL) 105.0 mmol/L 98-107 CARBON DIOXIDE (test code=CO2) mmol/L 21-32 ANION GAP (test code=GAP) 10-20 GLUCOSE (test code=GLU) mg/dL 74-106 BLOOD UREA NITROGEN (test code=BUN) mg/dL 7-18 GLOMERULAR FILTRATION RATE (test code=GFR) mL/min >=60 CREATININE (test code=CREAT) mg/dL 0.55-1.02 BUN/CREATININE RATIO (test code=BUN/CREA) 10-20 CALCIUM (test code=CA) mg/dL 8.5-10.1 HEPATIC FUNCTION [id number] 14:08:00* Test Item Value Reference Range Comments TOTAL PROTEIN (test code=PROT) gram/dL 6.4-8.2 ALBUMIN (test code=ALB) g/dL 3.4-5.0 GLOBULIN (test code=GLOB) gram/dL 2.7-4.2 ALBUMIN/GLOBULIN RATIO (test code=A/G) 0.75-1.50 BILIRUBIN TOTAL (test code=BILT) mg/dL 0.0-1.0 BILIRUBIN DIRECT (test code=BILD) mg/dL 0.0-0.20 SGOT/AST (test code=AST) IUnit/L 15-37 SGPT/ALT (test code=ALT) IUnit/L 12-78 ALKALINE PHOSPHATASE TOTAL (test code=ALKP) IUnit/L 45-117 [id number] 14:08:00* Test Item Value Reference Range Comments TROPONIN-I (test code=TROPI) ng/mL 0-0.045 - CT HEAD/BRAIN W/O [id number] 14:03:00 Name: JUSTIN MILLER [facility] : 1955 Age/S: 64 / F [address] [facility] Unit #: [id number] Loc: [place], [place] [address] Phys: Alfonso Ascencio MD Acct: [id number] Dis Date: Status: REG ER PHONE #: [phone] Exam Date: 05/11/2019 1317 FAX #: [phone] Reason: AMS EXAMS: CPT CODE: [id number] CT HEAD/BRAIN W/O CONT [id number] HISTORY: AMS TECHNIQUE: Noncontrast 2.[address] of the head. Examination acquired within 24 hours of arrival. Automated exposure control for dose reduction. COMPARISON: Noncontrast CT brain April 22, 2019 FINDINGS: No lacerations or contusions of the scalp or facial soft tissues. Calvarium and skull base are intact. No acute hemorrhage. No intracranial mass, mass effect, or midline shift. No effacement of the sulci or barbour- white matter interface. There is a small infarct in the right occipital lobe that is unchanged from the prior exam. There is also cortical atrophy appears similar to the previous study. Mild microvascular ischemic changes of the white matter are noted. Visualized paranasal sinuses are clear. Mastoid air cells and middle ear cavities are clear. Orbital contents are unremarkable. IMPRESSION: No acute intracranial process or appreciable change from prior exam.. Location: [facility] at 1403 Reported and signed by: Jimmy Gaspar MD CC: Alfonso Ascencio MD; Siddhartha Maria DO Technologist:Isai Vang RT(R),(MR),(CT); CTDI: DLP: Trnscb Date/Time: 05/11/2019 (1403) [email or web address] Orig Print D/T: S: 05/11/2019 (9419) PAGE 1 Signed Report CBC W/AUTO [id number] 13:32:00* Test Item Value Reference Range Comments WHITE BLOOD CELL (test code=WBC) 6.0 K/mm3 4.5-12.5 RED BLOOD CELL (test code=RBC) 4.29 mill/mm3 3.7-5.2 HEMOGLOBIN (test code=HGB) 12.0 gram/dL 11.5-15.5 HEMATOCRIT (test code=HCT) 37.9 % 36.0-46.0 MEAN CELL VOLUME (test code=MCV) 88.3 fL 80-98 MEAN CELL HGB (test code=MCH) 28.0 picogram 27.0-33.0 MEAN CELL HGB CONCETRATION (test code=MCHC) 31.7 gram/dL 33.0-36.0 RED CELL DISTRIBUTION WIDTH (test code=RDW) 15.9 % 11.6-16.2 RED CELL DISTRIBUTION WIDTH SD (test code=RDW-SD) 51.6 fL 37.0-51.0 PLATELET COUNT (test code=PLT) 180 K/mm3 150-450 MEAN PLATELET VOLUME (test code=MPV) 10.2 fL 6.7-11.0 NEUTROPHIL % (test code=NT%) 69.0 % 39.0-69.0 IMMATURE GRANULOCYTE % (test code=IG%) 0.3 % 0.0-5.0 LYMPHOCYTE % (test code=LY%) 22.9 % 25.0-55.0 MONOCYTE % (test code=MO%) 5.5 % 0.0-10.0 EOSINOPHIL % (test code=EO%) 1.5 % 0.0-5.0 BASOPHIL % (test code=BA%) 0.8 % 0.0-1.0 NUCLEATED RBC % (test code=NRBC%) 0.0 % 0-0 NEUTROPHIL # (test code=NT#) 4.11 K/mm3 1.8-7.7 IMMATURE GRANULOCYTE # (test code=IG#) 0.02 x10 3/uL 0-0.03 LYMPHOCYTE # (test code=LY#) 1.37 K/mm3 1.0-5.0 MONOCYTE # (test code=MO#) 0.33 K/mm3 0-0.8 EOSINOPHIL # (test code=EO#) 0.09 K/mm3 0.0-0.5 BASOPHIL # (test code=BA#) 0.05 K/mm3 0.0-0.2 NUCLEATED RBC # (test code=NRBC#) 0.00 K/mm3 0.0-0.1 CBC W/AUTO [id number] 13:31:00* Test Item Value Reference Range Comments WHITE BLOOD CELL (test code=WBC) K/mm3 4.5-12.5 RED BLOOD CELL (test code=RBC) mill/mm3 3.7-5.2 HEMOGLOBIN (test code=HGB) 12.0 gram/dL 11.5-15.5 HEMATOCRIT (test code=HCT) 37.9 % 36.0-46.0 MEAN CELL VOLUME (test code=MCV) fL 80-98 MEAN CELL HGB (test code=MCH) picogram 27.0-33.0 MEAN CELL HGB CONCETRATION (test code=MCHC) gram/dL 33.0-36.0 RED CELL DISTRIBUTION WIDTH (test code=RDW) % 11.6-16.2 RED CELL DISTRIBUTION WIDTH SD (test code=RDW-SD) fL 37.0-51.0 PLATELET COUNT (test code=PLT) K/mm3 150-450 MEAN PLATELET VOLUME (test code=MPV) fL 6.7-11.0 NEUTROPHIL % (test code=NT%) % 39.0-69.0 IMMATURE GRANULOCYTE % (test code=IG%) % 0.0-5.0 LYMPHOCYTE % (test code=LY%) % 25.0-55.0 MONOCYTE % (test code=MO%) % 0.0-10.0 EOSINOPHIL % (test code=EO%) % 0.0-5.0 BASOPHIL % (test code=BA%) % 0.0-1.0 NEUTROPHIL # (test code=NT#) K/mm3 1.8-7.7 LYMPHOCYTE # (test code=LY#) K/mm3 1.0-5.0 MONOCYTE # (test code=MO#) K/mm3 0-0.8 EOSINOPHIL # (test code=EO#) K/mm3 0.0-0.5 BASOPHIL # (test code=BA#) K/mm3 0.0-0.2 PROCALCITONIN (PCT)2019-04-27 12:51:00* Test Item Value Reference Range Comments PROCALCITONIN (PCT) (test code=PROCAL) < 0.05 ng/ml Concentration Interpretation (ng/mL) <0.51 Sepsis is not likely. Local bacterial infection is possible. (LOW RISK for progression to Sepsis) 0.51 - 2.00 Sepsis is possible, but other conditions are known to elevate PCT as well. (MODERATE RISK for progression to Sepsis) > 2.00 Sepsis is likely, unless other causes are known. (HIGH RISK for progression to Severe Sepsis or Septic Shock) 10.00 High likelihood of Severe Sepsis or Septic or higher Shock. *Increased PCT levels may not always be related to systemic bacterial infection.*Low PCT levels do not automatically exclude the presence of bacterial infection.*All results should be interpreted taking into account the patients history. BASIC METABOLIC [id number] 12:34:00* Test Item Value Reference Range Comments SODIUM (test code=NA) 142 mmol/L 136-145 POTASSIUM (test code=K) 4.3 mmol/L 3.5-5.1 CHLORIDE (test code=CL) 110.0 mmol/L 98-107 CARBON DIOXIDE (test code=CO2) 26.0 mmol/L 21-32 ANION GAP (test code=GAP) 10.3 10-20 GLUCOSE (test code=GLU) 79 mg/dL 74-106 BLOOD UREA NITROGEN (test code=BUN) 32 mg/dL 7-18 GLOMERULAR FILTRATION RATE (test code=GFR) 38 mL/min >=60 Estimated GFR by using Modified MDRD formula.Chronic kidney disease is defined as either kidney damageor GFR <60 mL/min/1.73 m2 for >3 months. CREATININE (test code=CREAT) 1.40 mg/dL 0.55-1.02 Note change in reference range due to change in reagent. BUN/CREATININE RATIO (test code=BUN/CREA) 22.4 10-20 CALCIUM (test code=CA) 8.8 mg/dL 8.5-10.1 CBC W/AUTO [id number] 11:42:00* Test Item Value Reference Range Comments WHITE BLOOD CELL (test code=WBC) 5.2 K/mm3 4.5-12.5 RED BLOOD CELL (test code=RBC) 3.66 mill/mm3 3.7-5.2 HEMOGLOBIN (test code=HGB) 10.3 gram/dL 11.5-15.5 HEMATOCRIT (test code=HCT) 32.2 % 36.0-46.0 MEAN CELL VOLUME (test code=MCV) 88.0 fL 80-98 MEAN CELL HGB (test code=MCH) 28.1 picogram 27.0-33.0 MEAN CELL HGB CONCETRATION (test code=MCHC) 32.0 gram/dL 33.0-36.0 RED CELL DISTRIBUTION WIDTH (test code=RDW) 14.5 % 11.6-16.2 RED CELL DISTRIBUTION WIDTH SD (test code=RDW-SD) 46.5 fL 37.0-51.0 PLATELET COUNT (test code=PLT) 148 K/mm3 150-450 MEAN PLATELET VOLUME (test code=MPV) 10.2 fL 6.7-11.0 NEUTROPHIL % (test code=NT%) 60.0 % 39.0-69.0 IMMATURE GRANULOCYTE % (test code=IG%) 0.2 % 0.0-5.0 LYMPHOCYTE % (test code=LY%) 28.7 % 25.0-55.0 MONOCYTE % (test code=MO%) 6.2 % 0.0-10.0 EOSINOPHIL % (test code=EO%) 4.1 % 0.0-5.0 BASOPHIL % (test code=BA%) 0.8 % 0.0-1.0 NUCLEATED RBC % (test code=NRBC%) 0.0 % 0-0 NEUTROPHIL # (test code=NT#) 3.09 K/mm3 1.8-7.7 IMMATURE GRANULOCYTE # (test code=IG#) 0.01 x10 3/uL 0-0.03 LYMPHOCYTE # (test code=LY#) 1.48 K/mm3 1.0-5.0 MONOCYTE # (test code=MO#) 0.32 K/mm3 0-0.8 EOSINOPHIL # (test code=EO#) 0.21 K/mm3 0.0-0.5 BASOPHIL # (test code=BA#) 0.04 K/mm3 0.0-0.2 NUCLEATED RBC # (test code=NRBC#) 0.00 K/mm3 0.0-0.1 MANUAL DIFF REQUIRED (test code=MDIFF) NO URINALYSIS [id number] 15:36:00* Test Item Value Reference Range Comments UA COLOR (test code=COLU) YELLOW YELLOW UA APPEARANCE (test code=APPU) CLEAR CLEAR UA GLUCOSE DIPSTICK (test code=DGLUU) NEGATIVE mg/dL NEGATIVE UA BILIRUBIN DIPSTICK (test code=BILU) NEGATIVE mg/dL NEGATIVE UA KETONE DIPSTICK (test code=KETU) TRACE mg/dL NEGATIVE UA SPECIFIC GRAVITY (test code=SGU) 1.031 1.001-1.035 UA BLOOD DIPSTICK (test code=JYOTHI) 0.03 mg/dL (Trace) mg/dL NEGATIVE UA PH DIPSTICK (test code=MOY) 5.5 5.0-8.0 UA PROTEIN DIPSTICK (test code=PROU) 30 (1+) mg/dL NEGATIVE UA UROBILINIOGEN DIPSTICK (test code=URO) Normal mg/dL NEGATIVE UA NITRITE DIPSTICK (test code=CARLY) NEGATIVE NEGATIVE UA LEUKOCYTE ESTERASE W REFLEX (test code=LEUUR) 75 Mariella/uL (1+) Mariella/uL NEGATIVE UA WBC (test code=WBCU) 6-10 per HPF 0-5 UA RBC (test code=RBCU) 0-2 #/HPF 0-5 UA EPITHELIAL CELLS (test code=EPIU) FEW per HPF FEW UA BACTERIA (test code=BACU) FEW #/HPF NONE UA MUCUS (test code=MUCU) FEW #/LPF FEW Urine Source? Clean CatchURINALYSIS [id number] 14:58:00* Test Item Value Reference Range Comments UA COLOR (test code=COLU) YELLOW YELLOW UA APPEARANCE (test code=APPU) CLEAR CLEAR UA GLUCOSE DIPSTICK (test code=DGLUU) NEGATIVE mg/dL NEGATIVE UA BILIRUBIN DIPSTICK (test code=BILU) NEGATIVE mg/dL NEGATIVE UA KETONE DIPSTICK (test code=KETU) TRACE mg/dL NEGATIVE UA SPECIFIC GRAVITY (test code=SGU) 1.031 1.001-1.035 UA BLOOD DIPSTICK (test code=JYOTHI) 0.03 mg/dL (Trace) mg/dL NEGATIVE UA PH DIPSTICK (test code=MOY) 5.5 5.0-8.0 UA PROTEIN DIPSTICK (test code=PROU) 30 (1+) mg/dL NEGATIVE UA UROBILINIOGEN DIPSTICK (test code=URO) Normal mg/dL NEGATIVE UA NITRITE DIPSTICK (test code=CARLY) NEGATIVE NEGATIVE UA LEUKOCYTE ESTERASE W REFLEX (test code=LEUUR) 75 Mariella/uL (1+) Mariella/uL NEGATIVE UA WBC (test code=WBCU) per HPF 0-5 UA RBC (test code=RBCU) per HPF 0-5 UA EPITHELIAL CELLS (test code=EPIU) per HPF Few UA BACTERIA (test code=BACU) per HPF NONE Urine Source? Clean CatchCOMPREHENSIVE METABOLIC [id number] 11:58:00* Test Item Value Reference Range Comments SODIUM (test code=NA) 141 mmol/L 136-145 POTASSIUM (test code=K) 3.2 mmol/L 3.5-5.1 CHLORIDE (test code=CL) 108.0 mmol/L 98-107 CARBON DIOXIDE (test code=CO2) 27.0 mmol/L 21-32 ANION GAP (test code=GAP) 9.2 10-20 GLUCOSE (test code=GLU) 107 mg/dL 74-106 BLOOD UREA NITROGEN (test code=BUN) 29 mg/dL 7-18 GLOMERULAR FILTRATION RATE (test code=GFR) 38 mL/min >=60 Estimated GFR by using Modified MDRD formula.Chronic kidney disease is defined as either kidney damageor GFR <60 mL/min/1.73 m2 for >3 months. CREATININE (test code=CREAT) 1.40 mg/dL 0.55-1.02 Note change in reference range due to change in reagent. BUN/CREATININE RATIO (test code=BUN/CREA) 20.6 10-20 TOTAL PROTEIN (test code=PROT) 6.5 gram/dL 6.4-8.2 ALBUMIN (test code=ALB) 3.1 g/dL 3.4-5.0 GLOBULIN (test code=GLOB) 3.4 gram/dL 2.7-4.2 ALBUMIN/GLOBULIN RATIO (test code=A/G) 0.9 0.75-1.50 CALCIUM (test code=CA) 8.4 mg/dL 8.5-10.1 BILIRUBIN TOTAL (test code=BILT) 0.30 mg/dL 0.0-1.0 SGOT/AST (test code=AST) 31 IUnit/L 15-37 SGPT/ALT (test code=ALT) 19 IUnit/L 12-78 ALKALINE PHOSPHATASE TOTAL (test code=ALKP) 55 IUnit/L 45-117 Note change in reference range due to change in reagent. COMPREHENSIVE METABOLIC [id number] 11:41:00* Test Item Value Reference Range Comments SODIUM (test code=NA) 141 mmol/L 136-145 POTASSIUM (test code=K) 3.2 mmol/L 3.5-5.1 CHLORIDE (test code=CL) 108.0 mmol/L 98-107 CARBON DIOXIDE (test code=CO2) mmol/L 21-32 ANION GAP (test code=GAP) 10-20 GLUCOSE (test code=GLU) mg/dL 74-106 BLOOD UREA NITROGEN (test code=BUN) mg/dL 7-18 GLOMERULAR FILTRATION RATE (test code=GFR) mL/min >=60 CREATININE (test code=CREAT) mg/dL 0.55-1.02 BUN/CREATININE RATIO (test code=BUN/CREA) 10-20 TOTAL PROTEIN (test code=PROT) gram/dL 6.4-8.2 ALBUMIN (test code=ALB) g/dL 3.4-5.0 GLOBULIN (test code=GLOB) gram/dL 2.7-4.2 ALBUMIN/GLOBULIN RATIO (test code=A/G) 0.75-1.50 CALCIUM (test code=CA) mg/dL 8.5-10.1 BILIRUBIN TOTAL (test code=BILT) mg/dL 0.0-1.0 SGOT/AST (test code=AST) IUnit/L 15-37 SGPT/ALT (test code=ALT) IUnit/L 12-78 ALKALINE PHOSPHATASE TOTAL (test code=ALKP) IUnit/L 45-117 CBC W/AUTO [id number] 10:56:00* Test Item Value Reference Range Comments WHITE BLOOD CELL (test code=WBC) 5.4 K/mm3 4.5-12.5 RED BLOOD CELL (test code=RBC) 3.82 mill/mm3 3.7-5.2 HEMOGLOBIN (test code=HGB) 10.6 gram/dL 11.5-15.5 HEMATOCRIT (test code=HCT) 33.1 % 36.0-46.0 MEAN CELL VOLUME (test code=MCV) 86.6 fL 80-98 MEAN CELL HGB (test code=MCH) 27.7 picogram 27.0-33.0 MEAN CELL HGB CONCETRATION (test code=MCHC) 32.0 gram/dL 33.0-36.0 RED CELL DISTRIBUTION WIDTH (test code=RDW) 14.5 % 11.6-16.2 RED CELL DISTRIBUTION WIDTH SD (test code=RDW-SD) 45.7 fL 37.0-51.0 PLATELET COUNT (test code=PLT) 145 K/mm3 150-450 MEAN PLATELET VOLUME (test code=MPV) 10.1 fL 6.7-11.0 NEUTROPHIL % (test code=NT%) 67.6 % 39.0-69.0 IMMATURE GRANULOCYTE % (test code=IG%) 0.2 % 0.0-5.0 LYMPHOCYTE % (test code=LY%) 23.2 % 25.0-55.0 MONOCYTE % (test code=MO%) 5.0 % 0.0-10.0 EOSINOPHIL % (test code=EO%) 3.3 % 0.0-5.0 BASOPHIL % (test code=BA%) 0.7 % 0.0-1.0 NUCLEATED RBC % (test code=NRBC%) 0.0 % 0-0 NEUTROPHIL # (test code=NT#) 3.63 K/mm3 1.8-7.7 IMMATURE GRANULOCYTE # (test code=IG#) 0.01 x10 3/uL 0-0.03 LYMPHOCYTE # (test code=LY#) 1.25 K/mm3 1.0-5.0 MONOCYTE # (test code=MO#) 0.27 K/mm3 0-0.8 EOSINOPHIL # (test code=EO#) 0.18 K/mm3 0.0-0.5 BASOPHIL # (test code=BA#) 0.04 K/mm3 0.0-0.2 NUCLEATED RBC # (test code=NRBC#) 0.00 K/mm3 0.0-0.1 [id number] 16:07:00* Test Item Value Reference Range Comments GLUBED (test code=GLUBED) 87 mg/dL 74-106 Performed by certified monotype operator at [facility] [id number] 12:22:00* Test Item Value Reference Range Comments GLUBED (test code=GLUBED) 148 mg/dL 74-106 Performed by certified monotype operator at [facility] [id number] 08:38:00* Test Item Value Reference Range Comments GLUBED (test code=GLUBED) 87 mg/dL 74-106 Performed by certified monotype operator at [facility] COMPREHENSIVE METABOLIC [id number] 08:14:00* Test Item Value Reference Range Comments SODIUM (test code=NA) 143 mmol/L 136-145 POTASSIUM (test code=K) 3.7 mmol/L 3.5-5.1 CHLORIDE (test code=CL) 110.0 mmol/L 98-107 CARBON DIOXIDE (test code=CO2) 26.0 mmol/L 21-32 ANION GAP (test code=GAP) 10.7 10-20 GLUCOSE (test code=GLU) 84 mg/dL 74-106 BLOOD UREA NITROGEN (test code=BUN) 21 mg/dL 7-18 GLOMERULAR FILTRATION RATE (test code=GFR) 38 mL/min >=60 Estimated GFR by using Modified MDRD formula.Chronic kidney disease is defined as either kidney damageor GFR <60 mL/min/1.73 m2 for >3 months. CREATININE (test code=CREAT) 1.40 mg/dL 0.55-1.02 Note change in reference range due to change in reagent. BUN/CREATININE RATIO (test code=BUN/CREA) 15.4 10-20 TOTAL PROTEIN (test code=PROT) 6.2 gram/dL 6.4-8.2 ALBUMIN (test code=ALB) 3.0 g/dL 3.4-5.0 GLOBULIN (test code=GLOB) 3.2 gram/dL 2.7-4.2 ALBUMIN/GLOBULIN RATIO (test code=A/G) 0.9 0.75-1.50 CALCIUM (test code=CA) 8.5 mg/dL 8.5-10.1 BILIRUBIN TOTAL (test code=BILT) 0.40 mg/dL 0.0-1.0 SGOT/AST (test code=AST) 48 IUnit/L 15-37 SGPT/ALT (test code=ALT) 18 IUnit/L 12-78 ALKALINE PHOSPHATASE TOTAL (test code=ALKP) 54 IUnit/L 45-117 Note change in reference range due to change in reagent. [id number] 08:14:00* Test Item Value Reference Range Comments MAGNESIUM (test code=MAG) 1.8 mg/dL 1.8-2.4 COMPREHENSIVE METABOLIC [id number] 08:08:00* Test Item Value Reference Range Comments SODIUM (test code=NA) 143 mmol/L 136-145 POTASSIUM (test code=K) 3.7 mmol/L 3.5-5.1 CHLORIDE (test code=CL) 110.0 mmol/L 98-107 CARBON DIOXIDE (test code=CO2) mmol/L 21-32 ANION GAP (test code=GAP) 10-20 GLUCOSE (test code=GLU) mg/dL 74-106 BLOOD UREA NITROGEN (test code=BUN) mg/dL 7-18 GLOMERULAR FILTRATION RATE (test code=GFR) mL/min >=60 CREATININE (test code=CREAT) mg/dL 0.55-1.02 BUN/CREATININE RATIO (test code=BUN/CREA) 10-20 TOTAL PROTEIN (test code=PROT) gram/dL 6.4-8.2 ALBUMIN (test code=ALB) g/dL 3.4-5.0 GLOBULIN (test code=GLOB) gram/dL 2.7-4.2 ALBUMIN/GLOBULIN RATIO (test code=A/G) 0.75-1.50 CALCIUM (test code=CA) mg/dL 8.5-10.1 BILIRUBIN TOTAL (test code=BILT) mg/dL 0.0-1.0 SGOT/AST (test code=AST) IUnit/L 15-37 SGPT/ALT (test code=ALT) IUnit/L 12-78 ALKALINE PHOSPHATASE TOTAL (test code=ALKP) IUnit/L 45-117 [id number] 08:08:00* Test Item Value Reference Range Comments MAGNESIUM (test code=MAG) mg/dL 1.8-2.4 CBC W/AUTO [id number] 07:38:00* Test Item Value Reference Range Comments WHITE BLOOD CELL (test code=WBC) 5.7 K/mm3 4.5-12.5 RED BLOOD CELL (test code=RBC) 4.00 mill/mm3 3.7-5.2 HEMOGLOBIN (test code=HGB) 11.1 gram/dL 11.5-15.5 HEMATOCRIT (test code=HCT) 33.8 % 36.0-46.0 MEAN CELL VOLUME (test code=MCV) 84.5 fL 80-98 MEAN CELL HGB (test code=MCH) 27.8 picogram 27.0-33.0 MEAN CELL HGB CONCETRATION (test code=MCHC) 32.8 gram/dL 33.0-36.0 RED CELL DISTRIBUTION WIDTH (test code=RDW) 14.6 % 11.6-16.2 RED CELL DISTRIBUTION WIDTH SD (test code=RDW-SD) 44.9 fL 37.0-51.0 PLATELET COUNT (test code=PLT) 147 K/mm3 150-450 MEAN PLATELET VOLUME (test code=MPV) 10.1 fL 6.7-11.0 NEUTROPHIL % (test code=NT%) 63.9 % 39.0-69.0 IMMATURE GRANULOCYTE % (test code=IG%) 0.2 % 0.0-5.0 LYMPHOCYTE % (test code=LY%) 25.3 % 25.0-55.0 MONOCYTE % (test code=MO%) 6.0 % 0.0-10.0 EOSINOPHIL % (test code=EO%) 3.7 % 0.0-5.0 BASOPHIL % (test code=BA%) 0.9 % 0.0-1.0 NUCLEATED RBC % (test code=NRBC%) 0.0 % 0-0 NEUTROPHIL # (test code=NT#) 3.64 K/mm3 1.8-7.7 IMMATURE GRANULOCYTE # (test code=IG#) 0.01 x10 3/uL 0-0.03 LYMPHOCYTE # (test code=LY#) 1.44 K/mm3 1.0-5.0 MONOCYTE # (test code=MO#) 0.34 K/mm3 0-0.8 EOSINOPHIL # (test code=EO#) 0.21 K/mm3 0.0-0.5 BASOPHIL # (test code=BA#) 0.05 K/mm3 0.0-0.2 NUCLEATED RBC # (test code=NRBC#) 0.00 K/mm3 0.0-0.1 [id number] 16:24:00* Test Item Value Reference Range Comments GLUBED (test code=GLUBED) 89 mg/dL 74-106 Performed by certified monotype operator at [facility] [id number] 12:59:00* Test Item Value Reference Range Comments GLUBED (test code=GLUBED) 83 mg/dL 74-106 [facility]~ CBC W/AUTO [id number] 11:41:00* Test Item Value Reference Range Comments WHITE BLOOD CELL (test code=WBC) 5.3 K/mm3 4.5-12.5 RED BLOOD CELL (test code=RBC) 3.92 mill/mm3 3.7-5.2 HEMOGLOBIN (test code=HGB) 11.1 gram/dL 11.5-15.5 HEMATOCRIT (test code=HCT) 34.5 % 36.0-46.0 MEAN CELL VOLUME (test code=MCV) 88.0 fL 80-98 MEAN CELL HGB (test code=MCH) 28.3 picogram 27.0-33.0 MEAN CELL HGB CONCETRATION (test code=MCHC) 32.2 gram/dL 33.0-36.0 RED CELL DISTRIBUTION WIDTH (test code=RDW) 14.7 % 11.6-16.2 RED CELL DISTRIBUTION WIDTH SD (test code=RDW-SD) 47.4 fL 37.0-51.0 PLATELET COUNT (test code=PLT) 165 K/mm3 150-450 MEAN PLATELET VOLUME (test code=MPV) 11.1 fL 6.7-11.0 NEUTROPHIL % (test code=NT%) 64.0 % 39.0-69.0 IMMATURE GRANULOCYTE % (test code=IG%) 0.2 % 0.0-5.0 LYMPHOCYTE % (test code=LY%) 27.0 % 25.0-55.0 MONOCYTE % (test code=MO%) 7.4 % 0.0-10.0 EOSINOPHIL % (test code=EO%) 0.8 % 0.0-5.0 BASOPHIL % (test code=BA%) 0.6 % 0.0-1.0 NUCLEATED RBC % (test code=NRBC%) 0.6 % 0-0 NEUTROPHIL # (test code=NT#) 3.36 K/mm3 1.8-7.7 IMMATURE GRANULOCYTE # (test code=IG#) 0.01 x10 3/uL 0-0.03 LYMPHOCYTE # (test code=LY#) 1.42 K/mm3 1.0-5.0 MONOCYTE # (test code=MO#) 0.39 K/mm3 0-0.8 EOSINOPHIL # (test code=EO#) 0.04 K/mm3 0.0-0.5 BASOPHIL # (test code=BA#) 0.03 K/mm3 0.0-0.2 NUCLEATED RBC # (test code=NRBC#) 0.03 K/mm3 0.0-0.1 MANUAL DIFF REQUIRED (test code=MDIFF) NO, ONLY SCAN NEEDED DIFFERENTIAL [id number] 11:41:00* Test Item Value Reference Range Comments STAIN ACCEPTABILITY (test code=STN ACCEPTABLE) STAIN ACCEPTABLE POIKILOCYTOSIS (test code=POIK) 1+ ANISOCYTOSIS (test code=ANISO) 1+ PLATELET ESTIMATE (test code=PLTEST) ADEQUATE PLATELET MORPHOLOGY (test code=PLTMORPH) NORMAL CBC W/AUTO [id number] 10:00:00* Test Item Value Reference Range Comments WHITE BLOOD CELL (test code=WBC) 5.3 K/mm3 4.5-12.5 RED BLOOD CELL (test code=RBC) 3.92 mill/mm3 3.7-5.2 HEMOGLOBIN (test code=HGB) 11.1 gram/dL 11.5-15.5 HEMATOCRIT (test code=HCT) 34.5 % 36.0-46.0 MEAN CELL VOLUME (test code=MCV) 88.0 fL 80-98 MEAN CELL HGB (test code=MCH) 28.3 picogram 27.0-33.0 MEAN CELL HGB CONCETRATION (test code=MCHC) 32.2 gram/dL 33.0-36.0 RED CELL DISTRIBUTION WIDTH (test code=RDW) 14.7 % 11.6-16.2 RED CELL DISTRIBUTION WIDTH SD (test code=RDW-SD) 47.4 fL 37.0-51.0 PLATELET COUNT (test code=PLT) 165 K/mm3 150-450 MEAN PLATELET VOLUME (test code=MPV) 11.1 fL 6.7-11.0 NEUTROPHIL % (test code=NT%) 64.0 % 39.0-69.0 IMMATURE GRANULOCYTE % (test code=IG%) 0.2 % 0.0-5.0 LYMPHOCYTE % (test code=LY%) 27.0 % 25.0-55.0 MONOCYTE % (test code=MO%) 7.4 % 0.0-10.0 EOSINOPHIL % (test code=EO%) 0.8 % 0.0-5.0 BASOPHIL % (test code=BA%) 0.6 % 0.0-1.0 NUCLEATED RBC % (test code=NRBC%) 0.6 % 0-0 NEUTROPHIL # (test code=NT#) 3.36 K/mm3 1.8-7.7 IMMATURE GRANULOCYTE # (test code=IG#) 0.01 x10 3/uL 0-0.03 LYMPHOCYTE # (test code=LY#) 1.42 K/mm3 1.0-5.0 MONOCYTE # (test code=MO#) 0.39 K/mm3 0-0.8 EOSINOPHIL # (test code=EO#) 0.04 K/mm3 0.0-0.5 BASOPHIL # (test code=BA#) 0.03 K/mm3 0.0-0.2 NUCLEATED RBC # (test code=NRBC#) 0.03 K/mm3 0.0-0.1 MANUAL DIFF REQUIRED (test code=MDIFF) NO, ONLY SCAN NEEDED DIFFERENTIAL [id number] 10:00:00* Test Item Value Reference Range Comments STAIN ACCEPTABILITY (test code=STN ACCEPTABLE) CABOT RINGS (test code=CAB) MORPHOLOGY COMMENT (test code=MOC) PLATELET ESTIMATE (test code=PLTEST) PLATELET MORPHOLOGY (test code=PLTMORPH) CBC W/AUTO [id number] 10:00:00* Test Item Value Reference Range Comments WHITE BLOOD CELL (test code=WBC) 5.3 K/mm3 4.5-12.5 RED BLOOD CELL (test code=RBC) 3.92 mill/mm3 3.7-5.2 HEMOGLOBIN (test code=HGB) 11.1 gram/dL 11.5-15.5 HEMATOCRIT (test code=HCT) 34.5 % 36.0-46.0 MEAN CELL VOLUME (test code=MCV) 88.0 fL 80-98 MEAN CELL HGB (test code=MCH) 28.3 picogram 27.0-33.0 MEAN CELL HGB CONCETRATION (test code=MCHC) 32.2 gram/dL 33.0-36.0 RED CELL DISTRIBUTION WIDTH (test code=RDW) 14.7 % 11.6-16.2 RED CELL DISTRIBUTION WIDTH SD (test code=RDW-SD) 47.4 fL 37.0-51.0 PLATELET COUNT (test code=PLT) 165 K/mm3 150-450 MEAN PLATELET VOLUME (test code=MPV) 11.1 fL 6.7-11.0 NEUTROPHIL % (test code=NT%) 64.0 % 39.0-69.0 IMMATURE GRANULOCYTE % (test code=IG%) 0.2 % 0.0-5.0 LYMPHOCYTE % (test code=LY%) 27.0 % 25.0-55.0 MONOCYTE % (test code=MO%) 7.4 % 0.0-10.0 EOSINOPHIL % (test code=EO%) 0.8 % 0.0-5.0 BASOPHIL % (test code=BA%) 0.6 % 0.0-1.0 NUCLEATED RBC % (test code=NRBC%) 0.6 % 0-0 NEUTROPHIL # (test code=NT#) 3.36 K/mm3 1.8-7.7 IMMATURE GRANULOCYTE # (test code=IG#) 0.01 x10 3/uL 0-0.03 LYMPHOCYTE # (test code=LY#) 1.42 K/mm3 1.0-5.0 MONOCYTE # (test code=MO#) 0.39 K/mm3 0-0.8 EOSINOPHIL # (test code=EO#) 0.04 K/mm3 0.0-0.5 BASOPHIL # (test code=BA#) 0.03 K/mm3 0.0-0.2 NUCLEATED RBC # (test code=NRBC#) 0.03 K/mm3 0.0-0.1 MANUAL DIFF REQUIRED (test code=MDIFF) NO, ONLY SCAN NEEDED DIFFERENTIAL [id number] 10:00:00* Test Item Value Reference Range Comments STAIN ACCEPTABILITY (test code=STN ACCEPTABLE) CABOT RINGS (test code=CAB) MORPHOLOGY COMMENT (test code=MOC) PLATELET ESTIMATE (test code=PLTEST) PLATELET MORPHOLOGY (test code=PLTMORPH) CBC W/AUTO [id number] 10:00:00* Test Item Value Reference Range Comments WHITE BLOOD CELL (test code=WBC) 5.3 K/mm3 4.5-12.5 RED BLOOD CELL (test code=RBC) 3.92 mill/mm3 3.7-5.2 HEMOGLOBIN (test code=HGB) 11.1 gram/dL 11.5-15.5 HEMATOCRIT (test code=HCT) 34.5 % 36.0-46.0 MEAN CELL VOLUME (test code=MCV) 88.0 fL 80-98 MEAN CELL HGB (test code=MCH) 28.3 picogram 27.0-33.0 MEAN CELL HGB CONCETRATION (test code=MCHC) 32.2 gram/dL 33.0-36.0 RED CELL DISTRIBUTION WIDTH (test code=RDW) 14.7 % 11.6-16.2 RED CELL DISTRIBUTION WIDTH SD (test code=RDW-SD) 47.4 fL 37.0-51.0 PLATELET COUNT (test code=PLT) 165 K/mm3 150-450 MEAN PLATELET VOLUME (test code=MPV) 11.1 fL 6.7-11.0 NEUTROPHIL % (test code=NT%) 64.0 % 39.0-69.0 IMMATURE GRANULOCYTE % (test code=IG%) 0.2 % 0.0-5.0 LYMPHOCYTE % (test code=LY%) 27.0 % 25.0-55.0 MONOCYTE % (test code=MO%) 7.4 % 0.0-10.0 EOSINOPHIL % (test code=EO%) 0.8 % 0.0-5.0 BASOPHIL % (test code=BA%) 0.6 % 0.0-1.0 NUCLEATED RBC % (test code=NRBC%) 0.6 % 0-0 NEUTROPHIL # (test code=NT#) 3.36 K/mm3 1.8-7.7 IMMATURE GRANULOCYTE # (test code=IG#) 0.01 x10 3/uL 0-0.03 LYMPHOCYTE # (test code=LY#) 1.42 K/mm3 1.0-5.0 MONOCYTE # (test code=MO#) 0.39 K/mm3 0-0.8 EOSINOPHIL # (test code=EO#) 0.04 K/mm3 0.0-0.5 BASOPHIL # (test code=BA#) 0.03 K/mm3 0.0-0.2 NUCLEATED RBC # (test code=NRBC#) 0.03 K/mm3 0.0-0.1 MANUAL DIFF REQUIRED (test code=MDIFF) NO, ONLY SCAN NEEDED DIFFERENTIAL [id number] 10:00:00* Test Item Value Reference Range Comments STAIN ACCEPTABILITY (test code=STN ACCEPTABLE) MORPHOLOGY COMMENT (test code=MOC) PLATELET ESTIMATE (test code=PLTEST) PLATELET MORPHOLOGY (test code=PLTMORPH) CBC W/AUTO [id number] 10:00:00* Test Item Value Reference Range Comments WHITE BLOOD CELL (test code=WBC) 5.3 K/mm3 4.5-12.5 RED BLOOD CELL (test code=RBC) 3.92 mill/mm3 3.7-5.2 HEMOGLOBIN (test code=HGB) 11.1 gram/dL 11.5-15.5 HEMATOCRIT (test code=HCT) 34.5 % 36.0-46.0 MEAN CELL VOLUME (test code=MCV) 88.0 fL 80-98 MEAN CELL HGB (test code=MCH) 28.3 picogram 27.0-33.0 MEAN CELL HGB CONCETRATION (test code=MCHC) 32.2 gram/dL 33.0-36.0 RED CELL DISTRIBUTION WIDTH (test code=RDW) 14.7 % 11.6-16.2 RED CELL DISTRIBUTION WIDTH SD (test code=RDW-SD) 47.4 fL 37.0-51.0 PLATELET COUNT (test code=PLT) 165 K/mm3 150-450 MEAN PLATELET VOLUME (test code=MPV) 11.1 fL 6.7-11.0 NEUTROPHIL % (test code=NT%) 64.0 % 39.0-69.0 IMMATURE GRANULOCYTE % (test code=IG%) 0.2 % 0.0-5.0 LYMPHOCYTE % (test code=LY%) 27.0 % 25.0-55.0 MONOCYTE % (test code=MO%) 7.4 % 0.0-10.0 EOSINOPHIL % (test code=EO%) 0.8 % 0.0-5.0 BASOPHIL % (test code=BA%) 0.6 % 0.0-1.0 NUCLEATED RBC % (test code=NRBC%) 0.6 % 0-0 NEUTROPHIL # (test code=NT#) 3.36 K/mm3 1.8-7.7 IMMATURE GRANULOCYTE # (test code=IG#) 0.01 x10 3/uL 0-0.03 LYMPHOCYTE # (test code=LY#) 1.42 K/mm3 1.0-5.0 MONOCYTE # (test code=MO#) 0.39 K/mm3 0-0.8 EOSINOPHIL # (test code=EO#) 0.04 K/mm3 0.0-0.5 BASOPHIL # (test code=BA#) 0.03 K/mm3 0.0-0.2 NUCLEATED RBC # (test code=NRBC#) 0.03 K/mm3 0.0-0.1 MANUAL DIFF REQUIRED (test code=MDIFF) NO, ONLY SCAN NEEDED DIFFERENTIAL [id number] 10:00:00* Test Item Value Reference Range Comments STAIN ACCEPTABILITY (test code=STN ACCEPTABLE) CABOT RINGS (test code=CAB) MORPHOLOGY COMMENT (test code=MOC) PLATELET ESTIMATE (test code=PLTEST) PLATELET MORPHOLOGY (test code=PLTMORPH) [id number] 09:17:00* Test Item Value Reference Range Comments TROPONIN-I (test code=TROPI) 0.030 ng/mL 0-0.045 COMMENTS TO HORSES OR MULES TEAMSTER: COLLECT 3 HOURS AFTER PREVIOUS SAMPLEBASIC METABOLIC [id number] 09:10:00* Test Item Value Reference Range Comments SODIUM (test code=NA) 144 mmol/L 136-145 POTASSIUM (test code=K) 3.3 mmol/L 3.5-5.1 CHLORIDE (test code=CL) 108.0 mmol/L 98-107 CARBON DIOXIDE (test code=CO2) 26.0 mmol/L 21-32 ANION GAP (test code=GAP) 13.3 10-20 GLUCOSE (test code=GLU) 105 mg/dL 74-106 BLOOD UREA NITROGEN (test code=BUN) 20 mg/dL 7-18 GLOMERULAR FILTRATION RATE (test code=GFR) 32 mL/min >=60 Estimated GFR by using Modified MDRD formula.Chronic kidney disease is defined as either kidney damageor GFR <60 mL/min/1.73 m2 for >3 months. CREATININE (test code=CREAT) 1.60 mg/dL 0.55-1.02 Note change in reference range due to change in reagent. BUN/CREATININE RATIO (test code=BUN/CREA) 12.8 10-20 CALCIUM (test code=CA) 8.7 mg/dL 8.5-10.1 LIPID PROFILE (CORONARY RISK)2019-04-23 09:10:00* Test Item Value Reference Range Comments TRIGLYCERIDES (test code=TRIG) 96 mg/dL 20-150 CHOLESTEROL (test code=CHOL) 180 mg/dL 0-200 CHOLESTEROL/HDL RATIO (test code=CHOLHDL) 4.0 RATIO 0-4.9 RISK ASSOCIATED WITH CHOL/HDL RATIOS: Risk Male Female1/2 AVERAGE 3.43 3.27AVERAGE 4.97 4.442X AVERAGE 9.55 7.053X AVERAGE 23.39 11.04 REFERENCE VALUE IS RELATED TO RISK LEVELS ASRECOMMENDED BY THE CHRISTINE. HEART, LUNG, AND BLOOD INST. HDL CHOLESTEROL (test code=HDL) 40 mg/dL 40-60 LIPOPROTEIN LDL (test code=LDL) 121 mg/dL 100-129 RN PERSONNEL, CONTACT PHYSICIAN IMMEDIATELY IF THIS IS A STROKE, AMI OR CAROTID STENOSIS PATIENT WHEN THE LDL >100 (1ST OCCURENCE, THIS ADMISSION) Reference Interval: mg/dL mmol/L Optimal <100 <2.6Near/above optimal 100-129 2.6- 3.3Borderline High 130-159 3.4-4.1High 160-189 4.1-4.9Very High >=190 >=4.9=========This LDL result is a direct measurement.========= BASIC METABOLIC [id number] 09:01:00* Test Item Value Reference Range Comments SODIUM (test code=NA) 144 mmol/L 136-145 POTASSIUM (test code=K) 3.3 mmol/L 3.5-5.1 CHLORIDE (test code=CL) 108.0 mmol/L 98-107 CARBON DIOXIDE (test code=CO2) mmol/L 21-32 ANION GAP (test code=GAP) 10-20 GLUCOSE (test code=GLU) mg/dL 74-106 BLOOD UREA NITROGEN (test code=BUN) mg/dL 7-18 GLOMERULAR FILTRATION RATE (test code=GFR) mL/min >=60 CREATININE (test code=CREAT) mg/dL 0.55-1.02 BUN/CREATININE RATIO (test code=BUN/CREA) 10-20 CALCIUM (test code=CA) mg/dL 8.5-10.1 LIPID PROFILE (CORONARY RISK)2019-04-23 09:01:00* Test Item Value Reference Range Comments TRIGLYCERIDES (test code=TRIG) mg/dL 20-150 CHOLESTEROL (test code=CHOL) mg/dL 0-200 CHOLESTEROL/HDL RATIO (test code=CHOLHDL) RATIO 0-4.9 HDL CHOLESTEROL (test code=HDL) mg/dL 40-60 LIPOPROTEIN LDL (test code=LDL) mg/dL 100-129 [id number] 08:56:00* Test Item Value Reference Range Comments GLUBED (test code=GLUBED) 100 mg/dL 74-106 [facility]~ [id number] 06:51:00* Test Item Value Reference Range Comments GLUBED (test code=GLUBED) 82 mg/dL 74-106 Performed by certified monotype operator at [facility] [id number] 03:01:00* Test Item Value Reference Range Comments TROPONIN-I (test code=TROPI) 0.033 ng/mL 0-0.045 COMMENTS TO HORSES OR MULES TEAMSTER: COLLECT 3 HOURS AFTER PREVIOUS SAMPLETHYROID STIMULATING [id number] 21:25:00* Test Item Value Reference Range Comments THYROID STIMULATING HORMONE (test code=TSH) 7.070 uIU/mL 0.36-3.74 TSH REFERENCE RANGES: EUTHYROID: 0.35 - 4.3 mIU/mL HYPO : > 5.5 mIU/mL HYPER : < 0.35 mIU/mL - XR CHEST 1 [id number] 18:59:00 FAX: Roger Alberto MD [phone] [place]: [address] St: REG Name: JUSTIN ADAME [facility] : [birth year] Age/S: 64/F [address] Unit #: [id number] Loc: [place] [address] Phys: Roger Alberto MD Acct: [id number] Dis Date: Status: REG ER PHONE #: [phone] Exam Date: 04/22/2019 1850 FAX #: [phone] Reason: CODE SEPSIS EXAMS: CPT CODE: [id number] XR CHEST 1 V 92389 REASON FOR EXAM: CODE SEPSIS EXAM ORDER DATE: 04/22/2019 4:48 PM Ordering: Roger Alberto MD Attending:Roger Alberto MD Location:[facility] ROCEDURE: - XR CHEST 1 V COMPARISON: 04/08/2017 FIND INGS: Portable AP frontal view of the chest obtained at 6:48 PM shows randa ar lungs without evidence of consolidation. There is no evidence of effusi on. The heart size is minimally enlarged. Pulmonary vasculatures are unrem arkable. IMPRESSION: No active disease. Electronica lly Signed by Kranthi Ortiz on 04/22/2019 at 185 Reporte d and signed by: Eduardo Ortiz M.D. CC: Roger Alberto MD Technologist: LEESA RAM Trnscrd Date/Time/By: 04/22/2019 (1858) : By: RachelleL Orig Print D/T: S: 04/22/2019 (1901) PAGE 1 Signed Report - CT HEAD/BRAIN W/O CONT 2019-04-22 18:38:00 Name: JUSTIN MILLER [facility] : 1955 Age/S: 64 / F [address] [facility] Unit #: [id number] Loc: [place] [address] Phys: Roger Alberto MD Acct: [id number] Dis Date: Status: REG ER PHONE #: [phone] Exam Date: 04/22/20191821 FAX #: [phone] Reason: confusion EXAMS: CPT CODE: [id number] CT HEAD/BRAIN W/O CONT [id number] REASON FOR EXAM: confusion EXAM ORDER DATE: 04/22/2019 4:48 PM Ordering: Roger Alberto MD Attending:Roger Alberto MD Location: PROCEDURE: - CT HEAD/BRAIN W/O CONT COMPARISON: FINDINGS: CT images of the brain were obtained without IV contrast. Dose modulation, iterative reconstruction, and/or weight based adjustment of the MA/KV was utilized to reduce the radiation dose to as low as reasonably achievable. The brain parenchyma is within normal limits. The glaser-white matter delineation is unremarkable. The ventricles, cisterns, and sulci are unremarkable. There is no evidence of hemorrhage, mass, mass effect. There is no evidence of acute or old infarct. The calvarium is intact. IMPRESSION: Unremarkable brain. at 1838 Reported and signed by: Eduardo Ortiz M.D. CC: Roger Alberto MD Technologist:PÉREZ WHALEY, RT(R) CT CTDI: DLP: Trnscb Date/Time: 04/22/2019 (1837) [email or web address] Orig Print D/T: S: 04/22/2019 (184) PAGE 1 Signed Report - CT ABD PELVIS W/O [id number] 18:37:00 Name: JUSTIN MILLER [facility] : 1955 Age/S: 64 / F [address] [facility] Unit #: [id number] Loc: [place] [address] Phys: Roger Alberto MD Acct: [id number] Dis Date: Status: REG ER PHONE #: [phone] Exam Date: 04/22/20191821 FAX #: [phone] Reason: upper abd pain EXAMS: CPT CODE: [id number] CT ABD PELVIS W/O CONT 55246 REASON FOR EXAM: upper abd pain EXAM ORDER DATE: 04/22/2019 4:48 PM Ordering: Roger Alberto MD Attending:Roger Alberto MD Location: PROCEDURE: - CT ABD PELVIS W/O CONT COMPARISON: FINDINGS: CT images of the abdomen and pelvis were obtained without IV and without oral contrast at 5mm. Dose modulation, iterative reconstruction, and/or weight based adjustment of the MA/KV was utilized to reduce the radiation dose to as low as reasonably achievable. The liver, spleen, pancreas are grossly within normal limits. The gall bladder is unremarkable by CT. The kidneys are atrophic. The urinary bladder is unremarkable. The colon, small bowel, and stomach are within normal limits without evidence of obstruction. The appendix was not seen No evidence of free air or free fluid. The patient is status post hysterectomy IMPRESSION: Atrophic kidneys suggestive of chronic medical renal disease. at 1837 Reported and signed by: Eduardo Ortiz M.D. CC: Roger Alberto MD Technologist:PÉREZ WHALEY, RT(R) CT CTDI: DLP: Trnscb Date/Time: 04/22/2019 (183) Latasha Orig Print D/T: S: 04/22/2019 (1841) PAGE 1 Signed Report URINALYSIS [id number] 18:30:00* Test Item Value Reference Range Comments UA COLOR (test code=COLU) YELLOW YELLOW UA APPEARANCE (test code=APPU) HAZY CLEAR UA GLUCOSE DIPSTICK (test code=DGLUU) NEGATIVE mg/dL NEGATIVE UA BILIRUBIN DIPSTICK (test code=BILU) NEGATIVE NEGATIVE UA KETONE DIPSTICK (test code=KETU) TRACE mg/dL NEGATIVE UA SPECIFIC GRAVITY (test code=SGU) 1.025 1.001-1.035 UA BLOOD DIPSTICK (test code=JYOTHI) NEGATIVE NEGATIVE UA PH DIPSTICK (test code=MOY) 6.0 5.0-8.0 UA PROTEIN DIPSTICK (test code=PROU) NEGATIVE mg/dL Neg-15 UA UROBILINIOGEN DIPSTICK (test code=URO) 1 mg/dL (1+) mg/dL 0.0-0.2 UA NITRITE DIPSTICK (test code=CARLY) NEGATIVE NEGATIVE UA LEUKOCYTE ESTERASE W REFLEX (test code=LEUUR) 2+ NEGATIVE UA WBC (test code=WBCU) 6-10 per HPF 0-5 UA RBC (test code=RBCU) 0-2 #/HPF 0-5 UA EPITHELIAL CELLS (test code=EPIU) FEW per HPF FEW UA BACTERIA (test code=BACU) FEW #/HPF NONE UA HYALINE CAST (test code=HYALU) 0-2 #/LPF 0-5 UA MUCUS (test code=MUCU) FEW #/LPF FEW Urine Source? Clean CatchURINALYSIS [id number] 18:27:00* Test Item Value Reference Range Comments UA COLOR (test code=COLU) YELLOW YELLOW UA APPEARANCE (test code=APPU) HAZY CLEAR UA GLUCOSE DIPSTICK (test code=DGLUU) NEGATIVE mg/dL NEGATIVE UA BILIRUBIN DIPSTICK (test code=BILU) NEGATIVE NEGATIVE UA KETONE DIPSTICK (test code=KETU) TRACE mg/dL NEGATIVE UA SPECIFIC GRAVITY (test code=SGU) 1.025 1.001-1.035 UA BLOOD DIPSTICK (test code=JYOTHI) NEGATIVE NEGATIVE UA PH DIPSTICK (test code=MOY) 6.0 5.0-8.0 UA PROTEIN DIPSTICK (test code=PROU) NEGATIVE mg/dL Neg-15 UA UROBILINIOGEN DIPSTICK (test code=URO) 1 mg/dL (1+) mg/dL 0.0-0.2 UA NITRITE DIPSTICK (test code=CARLY) NEGATIVE NEGATIVE UA LEUKOCYTE ESTERASE W REFLEX (test code=LEUUR) 2+ NEGATIVE UA WBC (test code=WBCU) per HPF 0-5 UA RBC (test code=RBCU) per HPF 0-5 UA EPITHELIAL CELLS (test code=EPIU) per HPF Few UA BACTERIA (test code=BACU) per HPF NONE Urine Source? Clean CatchBASIC METABOLIC [id number] 17:28:00* Test Item Value Reference Range Comments SODIUM (test code=NA) 142 mmol/L 136-145 POTASSIUM (test code=K) 2.9 mmol/L 3.5-5.1 Results called to [id number] by V.LAB.SPR 04/22/19 1723Critical results verified and read back by Nurse? Y CHLORIDE (test code=CL) 104.0 mmol/L 98-107 CARBON DIOXIDE (test code=CO2) 26.0 mmol/L 21-32 ANION GAP (test code=GAP) 14.9 10-20 GLUCOSE (test code=GLU) 108 mg/dL 74-106 BLOOD UREA NITROGEN (test code=BUN) 23 mg/dL 7-18 GLOMERULAR FILTRATION RATE (test code=GFR) 28 mL/min >=60 Estimated GFR by using Modified MDRD formula.Chronic kidney disease is defined as either kidney damageor GFR <60 mL/min/1.73 m2 for >3 months. CREATININE (test code=CREAT) 1.80 mg/dL 0.55-1.02 Note change in reference range due to change in reagent. BUN/CREATININE RATIO (test code=BUN/CREA) 12.7 10-20 CALCIUM (test code=CA) 9.5 mg/dL 8.5-10.1 HEPATIC FUNCTION [id number] 17:28:00* Test Item Value Reference Range Comments TOTAL PROTEIN (test code=PROT) 7.8 gram/dL 6.4-8.2 ALBUMIN (test code=ALB) 3.8 g/dL 3.4-5.0 GLOBULIN (test code=GLOB) 4.0 gram/dL 2.7-4.2 ALBUMIN/GLOBULIN RATIO (test code=A/G) 1.0 0.75-1.50 BILIRUBIN TOTAL (test code=BILT) 0.50 mg/dL 0.0-1.0 BILIRUBIN DIRECT (test code=BILD) 0.14 mg/dL 0.0-0.20 SGOT/AST (test code=AST) 25 IUnit/L 15-37 SGPT/ALT (test code=ALT) 19 IUnit/L 12-78 ALKALINE PHOSPHATASE TOTAL (test code=ALKP) 65 IUnit/L 45-117 Note change in reference range due to change in reagent. [id number] 17:28:00* Test Item Value Reference Range Comments LIPASE (test code=LIP) 166 U/L 73.0-393.0 [id number] 17:28:00* Test Item Value Reference Range Comments TROPONIN-I (test code=TROPI) <0.015 ng/mL 0-0.045 LACTIC [id number] 17:28:00* Test Item Value Reference Range Comments LACTIC ACID (test code=LACT) 1.8 mmol/L 0.4-1.9 BASIC METABOLIC [id number] 17:24:00* Test Item Value Reference Range Comments SODIUM (test code=NA) 142 mmol/L 136-145 POTASSIUM (test code=K) 2.9 mmol/L 3.5-5.1 Results called to [id number] by V.LAB.SPR 04/22/19 1723Critical results verified and read back by Nurse? Y CHLORIDE (test code=CL) 104.0 mmol/L 98-107 CARBON DIOXIDE (test code=CO2) mmol/L 21-32 ANION GAP (test code=GAP) 10-20 GLUCOSE (test code=GLU) mg/dL 74-106 BLOOD UREA NITROGEN (test code=BUN) mg/dL 7-18 GLOMERULAR FILTRATION RATE (test code=GFR) mL/min >=60 CREATININE (test code=CREAT) mg/dL 0.55-1.02 BUN/CREATININE RATIO (test code=BUN/CREA) 10-20 CALCIUM (test code=CA) mg/dL 8.5-10.1 HEPATIC FUNCTION [id number] 17:24:00* Test Item Value Reference Range Comments TOTAL PROTEIN (test code=PROT) gram/dL 6.4-8.2 ALBUMIN (test code=ALB) g/dL 3.4-5.0 GLOBULIN (test code=GLOB) gram/dL 2.7-4.2 ALBUMIN/GLOBULIN RATIO (test code=A/G) 0.75-1.50 BILIRUBIN TOTAL (test code=BILT) mg/dL 0.0-1.0 BILIRUBIN DIRECT (test code=BILD) mg/dL 0.0-0.20 SGOT/AST (test code=AST) IUnit/L 15-37 SGPT/ALT (test code=ALT) IUnit/L 12-78 ALKALINE PHOSPHATASE TOTAL (test code=ALKP) IUnit/L 45-117 [id number] 17:24:00* Test Item Value Reference Range Comments LIPASE (test code=LIP) U/L 73.0-393.0 [id number] 17:24:00* Test Item Value Reference Range Comments TROPONIN-I (test code=TROPI) ng/mL 0-0.045 CBC W/AUTO [id number] 17:08:00* Test Item Value Reference Range Comments WHITE BLOOD CELL (test code=WBC) 6.0 K/mm3 4.5-12.5 RED BLOOD CELL (test code=RBC) 4.21 mill/mm3 3.7-5.2 HEMOGLOBIN (test code=HGB) 11.9 gram/dL 11.5-15.5 HEMATOCRIT (test code=HCT) 35.6 % 36.0-46.0 MEAN CELL VOLUME (test code=MCV) 84.6 fL 80-98 MEAN CELL HGB (test code=MCH) 28.3 picogram 27.0-33.0 MEAN CELL HGB CONCETRATION (test code=MCHC) 33.4 gram/dL 33.0-36.0 RED CELL DISTRIBUTION WIDTH (test code=RDW) 14.4 % 11.6-16.2 RED CELL DISTRIBUTION WIDTH SD (test code=RDW-SD) 44.3 fL 37.0-51.0 PLATELET COUNT (test code=PLT) 172 K/mm3 150-450 MEAN PLATELET VOLUME (test code=MPV) 9.9 fL 6.7-11.0 NEUTROPHIL % (test code=NT%) 67.5 % 39.0-69.0 IMMATURE GRANULOCYTE % (test code=IG%) 0.3 % 0.0-5.0 LYMPHOCYTE % (test code=LY%) 25.7 % 25.0-55.0 MONOCYTE % (test code=MO%) 4.7 % 0.0-10.0 EOSINOPHIL % (test code=EO%) 1.3 % 0.0-5.0 BASOPHIL % (test code=BA%) 0.5 % 0.0-1.0 NUCLEATED RBC % (test code=NRBC%) 0.0 % 0-0 NEUTROPHIL # (test code=NT#) 4.04 K/mm3 1.8-7.7 IMMATURE GRANULOCYTE # (test code=IG#) 0.02 x10 3/uL 0-0.03 LYMPHOCYTE # (test code=LY#) 1.54 K/mm3 1.0-5.0 MONOCYTE # (test code=MO#) 0.28 K/mm3 0-0.8 EOSINOPHIL # (test code=EO#) 0.08 K/mm3 0.0-0.5 BASOPHIL # (test code=BA#) 0.03 K/mm3 0.0-0.2 NUCLEATED RBC # (test code=NRBC#) 0.00 K/mm3 0.0-0.1 CBC W/AUTO [id number] 17:07:00* Test Item Value Reference Range Comments WHITE BLOOD CELL (test code=WBC) K/mm3 4.5-12.5 RED BLOOD CELL (test code=RBC) mill/mm3 3.7-5.2 HEMOGLOBIN (test code=HGB) 11.9 gram/dL 11.5-15.5 HEMATOCRIT (test code=HCT) % 36.0-46.0 MEAN CELL VOLUME (test code=MCV) fL 80-98 MEAN CELL HGB (test code=MCH) picogram 27.0-33.0 MEAN CELL HGB CONCETRATION (test code=MCHC) gram/dL 33.0-36.0 RED CELL DISTRIBUTION WIDTH (test code=RDW) % 11.6-16.2 RED CELL DISTRIBUTION WIDTH SD (test code=RDW-SD) fL 37.0-51.0 PLATELET COUNT (test code=PLT) K/mm3 150-450 MEAN PLATELET VOLUME (test code=MPV) fL 6.7-11.0 NEUTROPHIL % (test code=NT%) % 39.0-69.0 IMMATURE GRANULOCYTE % (test code=IG%) % 0.0-5.0 LYMPHOCYTE % (test code=LY%) % 25.0-55.0 MONOCYTE % (test code=MO%) % 0.0-10.0 EOSINOPHIL % (test code=EO%) % 0.0-5.0 BASOPHIL % (test code=BA%) % 0.0-1.0 NEUTROPHIL # (test code=NT#) K/mm3 1.8-7.7 LYMPHOCYTE # (test code=LY#) K/mm3 1.0-5.0 MONOCYTE # (test code=MO#) K/mm3 0-0.8 EOSINOPHIL # (test code=EO#) K/mm3 0.0-0.5 BASOPHIL # (test code=BA#) K/mm3 0.0-0.2
== END 2019-05-14 11:18 | disposition home or self-care (01) | DRG 689 ==
LOC: ER 15:25 → ERHOLD 17:33 → MED/SURG2 18:15
PROVIDERS: ADMIT Internal Medicine; ATTEND Internal Medicine
DX: N39.0 Urinary tract infection, site not specified (principal); G93.41 Metabolic encephalopathy; F33.1 Major depressive disorder, recurrent, moderate; F03.91 Unspecified dementia, unspecified severity, with behavioral disturbance; I69.351 Hemiplegia and hemiparesis following cerebral infarction affecting right dominant side; I12.9 Hypertensive chronic kidney disease with stage 1 through stage 4 chronic kidney disease, or unspecified chronic kidney disease; N18.3 Chronic kidney disease, stage 3 (moderate); F32.9 Major depressive disorder, single episode, unspecified; F41.9 Anxiety disorder, unspecified; M79.7 Fibromyalgia; R00.1 Bradycardia, unspecified; F29 Unspecified psychosis not due to a substance or known physiological condition; I69.322 Dysarthria following cerebral infarction; Z86.74 Personal history of sudden cardiac arrest; E53.8 Deficiency of other specified B group vitamins
CPT/HCPCS: 36415; 70450; 70551; 71045; 80048; 80053; 80061; 80307; 80320; 81001; 82140; 82550; 82553; 82607; 83036; 83690; 83735; 83880; 83921; 84100; 84207; 84425; 84443; 84484; 85025; 85610; 85730; 87040; 87086; 92522; 93005; 93306; 93880; 97139; 99284; J0696; J3411; J7030

== ENCOUNTER 2020-01-04 09:09 | Emergency (ER) | payer MEDICARE ==
[~2020-01-04] VITALS: Ht 152.4 cm; Wt 66.7 kg
[~2020-01-04 09:09] MED LIST changes: +ALPRAZOLAM0.5 MG PO; +ALPRAZOLAM1 MG PO; +ARICEPT5 MG PO; +ATORVASTATIN CA20 MG PO; +HYDROCHLOROTHIA25 MG PO; +HYDROXYZINE HCL25 MG PO; +LOPRESSOR25 MG PO; +LOSARTAN POTASS25 MG PO; +OMEPRAZOLE40 MG PO; +PRAZOSIN HCL1 MG PO; +SERTRALINE HCL100 MG PO; +SPIRONOLACTONE25 MG PO; +TRAZODONE HCL50 MG PO; +VITAMIN B-121000 MCG PO
--- OUTSIDE RECORDS SUMMARY | 2020-01-04 09:23 | XMS REPORT | Continuity of Care Document ---
Author Author [employer] JUSTIN [facility] [employer] Address Unknown Phone Unavailable Care Team Providers Care Manager Market Intelligence Name Role Phone Branding Brand Information Exchange Unavailable Un available Problems Problem Status Onset Date Classification Date Reported Comments Source Fibromyalgia Active Problem 08/31/2016 Rohit Serrato Morbid (severe) obesity due to excess calories Active Problem 08/31/2016 Rohit Serrato Inflammatory Arthritis Active Problem 08/31/2016 Rohit Serrato Polyarthralgia Active Problem 08/31/2016 Rohit Serrato Fibromyalgia Active Problem 08/31/2016 Rohit Serrato 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 Problem 08/31/2016 Rohit Serrato Rheumatoid arthritis without rheumatoid factor, multiple sites Active Prob [place] 08/31/2016 Rohit Serrato Fall (on) (from) unspecified stairs and steps, initial encounter Active Prob [place] 08/31/2016 Rohit Serrato Body mass index (BMI) 36.0-36.9, adult Active Problem Rhoit Serrato Other assisted (current) drug therapy Active Problem Rohit Serrato Accidental fall from or out of building or other structure Active Prob [place] 08/31/2016 Rohit Serrato Medications No Data Provided for This Section Allergies, Adverse Reactions, Alerts No Known Medication Allergies Immunizations No Data Provided for This Section Results No Data Provided for This Section Pathology Reports No Data Provided for This Section Diagnostic Reports No Data Provided for This Section Consultation Notes No Data Provided for This Section Discharge Summaries No Data Provided for This Section History and Physicals No Data Provided for This Section Vital Signs No Data Provided for This Section Encounters No Data Provided for This Section Procedures No Data Provided for This Section Assessment and Plan No Data Provided for This Section Plan of Care No Data Provided for This Section Social History No Data Provided for This Section Family History No Data Provided for This Section Advance Directives No Data Provided for This Section Functional Status No Data Provided for This Section
--- OUTSIDE RECORDS SUMMARY | 2020-01-04 09:23 | XMS REPORT | Continuity of Care Document ---
Author Author [facility] t Organization [facility] Address [address] [place] [address] Phone Unavailable Care Team Providers Care Infrastructure Technician Name Role Phone Travis ALEGRIA DO PCP APRIL BARRERA Attphys Unavailable BALBIR HERRERA M.D. Attphys Unavailable MARTINEZ LEWIS M.D. Attphys Unavailable APRIL BARRERA [employer]ador Unavailable Payers Payer Name Policy Type Policy Number Effective Date Expiration Date S ource [employer] [id number] 2014 00:00:00 [facility] Problems Condition Name Condition Details Condition Category Status Onset Date Resolution Date Last Treatment Date Treating Clinician Comments Source History of arthritis History of arthritis Problem HL7.CCDAR2 Resolved [facility] History of Chronic kidney disease, stage III (moderate ) History of Chronic kidney disease, stage III (moderate) Problem HL7.CCDAR2 Resolved [facility] History of Depressive disorder History of Depressive disorde r Problem HL7.CCDAR2 Resolved [facility] History of Essential hypertension, benign History of E ssential hypertension, benign Problem HL7.CCDAR2 Resolved [facility] History of fibromyalgia History of fibromyalgia Problem HL7.CCDAR2 Res olved [facility] History of gastroesophageal reflux (GERD) History of g astroesophageal reflux (GERD) Problem HL7.CCDAR2 Resolved [facility] History of headache History of headache Problem HL7.CCDAR2 Resolved [facility] History of hyperparathyroidism History of hyperparathyroidis m Problem HL7.CCDAR2 Resolved [facility] History of hypothyroidism History of hypothyroidism Problem HL7.CCD AR2 Resolved [facility] History of migraine History of migraine Problem HL7.CCDAR2 Resolved [facility] History of Morbid obesity History of Morbid obesity Problem HL7.CCD AR2 Resolved [facility] History of sleep apnea History of sleep apnea Problem HL7.CCDAR2 Resolve d [facility] Diabetes mellitus Diabetes mellitus Problem HL7.CCDAR2 Active [facility] Hypercholesterolemia Hypercholesterolemia Problem HL7.CCDAR2 Active [facility] Hypertension secondary to other renal disorders Hypert ension secondary to other renal disorders Problem HL7.CCDAR2 Active [facility] Renal artery stenosis Renal artery stenosis Problem HL7.CCDAR2 Active [facility] Right shoulder pain Right shoulder pain Problem HL7.CCDAR2 Active [facility] Neck pain Neck pain Problem HL7.CCDAR2 Active [facility] Cervical myelopathy Cervical myelopathy Problem HL7.CCDAR2 Active [facility] Right cervical radiculopathy Right cervical radiculopathy Proble m HL7.CCDAR2 Active [facility] Spondylosis, cervical Spondylosis, cervical Problem HL7.CCDAR2 Active [facility] Myofacial muscle pain Myofacial muscle pain Problem HL7.CCDAR2 Active [facility] Altered mental status Altered mental status Problem Active [facility] Cerebrovascular accident (CVA) CVA (cerebral vascular accident) Pro blem Active [facility] Hypertension HTN (hypertension) Problem Active [facility] Fibromyalgia Fibr omyalgia Active Problem 08/31/2016 Rohit Serrato Problem Active 2016-08-31 02:45:06 Russell Blair Morbid (severe) obesity due to excess calories Morbid (severe) obesity due to excess calories Active Problem 08/31/2016 Rohit Serrato [facility] 2016[facility]th[facility] Infl ammatory Arthritis Active Problem 08/31/2016 Rohit Serrato Problem Active 2016-08-31 02 :45:06 Russell Blair Polyarthralgia Poly arthralgia Active Problem 08/31/2016 Rohit Mullener Problem Active 2016-08-31 02:45:06 Russell Blair Fibromyalgia Fibr omyalgia Active Problem 08/31/2016 Rohit Serrato Problem Active 2016-08-31 02:45:06 Russell Blair detention (current) 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 Active Problem 08/31/2016 Rohit Mullener Problem Active 2016-08-31 02:45:06 Russell Blair Rheumatoid arthritis without rheumatoid factor, multip le sites Rheumatoid arthritis without rheumatoid factor, multiple sites Active Problem 08/31/2016 Rohit Serrato Problem Active 2016-08-31 02:45:06 Russell Blair Fall (on) (from) unspecified stairs and steps, initial encounter Fall (on) (from) unspecified stairs and steps, initial encounter Active Problem 08/31/2016 Rohit Serrato Problem Active 2016-08-31 02 :45:06 Russell Blair Body mass index (BMI) 36.0-36.9, adult Body mass index (BMI) 36.0-36.9, adult Active Problem 08/31/2016 Rohit Serrato Problem Ac tive 2016-08-31 02:45:06 Russell Her weinberg Other terminal gauger (current) drug therapy Other terminal gauger (current) drug therapy Active Problem 08/31/2016 Rohit Serrato Problem Ac tive 2016-08-31 02:45:06 Russell Her weinberg Accidental fall from or out of building or other struc ture Accidental fall from or out of building or other structure Active Problem 08/31/2016 Rohit Mullener Problem Active 2016-08-31 02:45:06 Russell Blair Allergies, Adverse Reactions, Alerts Allergy Name Allergy Type Status Severity Reaction(s) Onset Date Inacti ve Date Treating Clinician Comments Source No Known Allergies DA Active U 2019-05-11 00:00:00 [facility] No Known Allergies DA Active U 2019-04-22 00:00:00 [facility] No Known Allergies DA Active U 2017-04-08 00:00:00 [facility] Family History Family Member Diagnosis Comments Start Date Stop Date Source Mother Family history of diabetes mellitus [facility] Mother Family history of essential hypertension [facility] Father Family history of diabetes mellitus [facility] Father Family history of essential hypertension [facility] Sister Family history of cardiac disorder [facility] Social History Smoking Status Start Date Stop Date Source Never smoker [facility] Medications Ordered Medication Name Filled Medication Name Start Date Stop Da te Current Medication? Ordering Clinician Indication Dosage Frequency Signature (SIG) Comments Components Source Alprazolam 0.5 Mg Tablet Alprazolam 0.5 Mg Tablet 2019-05-14 00:00:00 Yes Jessica Anderson Np .5 Twice A Day as needed for Anxiety [facility] Cyanocobalamin (Vitamin B-12) 1,000 Mcg Tab Cyanocobal roblero (Vitamin B-12) 1,000 Mcg Tab 2019-05-14 00:00:00 Yes Jessica Anderson Np 1000 Namita y [facility] Donepezil Hcl (Aricept) 5 Mg Tablet Donepezil Hcl (Aricept) 5 Mg Tablet 2019-05-14 00:00:00 Yes Jessica Anderson Np 10 Bedtime [facility] Ibuprofen 400 MG Oral Tablet Ibuprofen 400 MG Oral Tablet 2017-08-01 9 00:00:00 Yes BALBIR HERRERA M.D. 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 81 Every Morning [facility] Clonidine Hcl (Catapres) 0.1 Mg Tablet, 0.2 Mg Oral Cl onidine Hcl (Catapres) 0.1 Mg Tablet, 0.2 Mg Oral 2016-12-03 00:00:00 2019-05-12 00:00:00 No Federica Castellanos Np .2 Three Times A Day as needed for Htn [facility] Pantoprazole Sod (Protonix) 40 Mg/Ml Susp, 40 Mg Oral Pantoprazole Sod (Protonix) 40 Mg/Ml Susp, 40 Mg Oral 2016-12-03 00:00:00 2019-05-12 00:00:00 No Bronson Emanuel Poultry Picking Machine Tender 40 Before Breakfast [facility] CloNIDine HCl - 0.1 MG Oral Tablet CloNIDine HCl - 0.1 MG Oral Tablet Yes 1 TABLET TWICE DAILY. ( 0.5mg ) [facility] Gabapentin 400 MG TABS Gabapentin 400 MG TABS Yes Q0.3333D TAKE 1 TABLET 3 TIMES DAILY. [facility] Metoprolol Succinate ER 50 MG Oral Tablet Extended Rel ease 24 Hour Metoprolol Succinate ER 50 MG Oral Tablet Extended Release 24 Hour Yes TAKE 1 TABLET BY MOUTH ONCE DAILY [facility] Omeprazole 20 MG Oral Tablet Delayed Release Omeprazol e 20 MG Oral Tablet Delayed Release Yes 1 tablet daily [facility] HydrOXYzine HCl - 25 MG Oral Tablet HydrOXYzine HCl - 25 MG Oral Tabl et Yes Q0.5D TAKE 1 TABLET TWICE DAILY. [facility] BuPROPion HCl ER (XL) 150 MG Oral Tablet Extended Rele ase 24 Hour BuPROPion HCl ER (XL) 150 MG Oral Tablet Extended Release 24 Hour Yes 1 QD TAKE 1 TABLET DAILY [facility] NIFEdipine ER 60 MG Oral Tablet Extended Release 24 Ho ur NIFEdipine ER 60 MG Oral Tablet Extended Release 24 Hour Yes 1 QD T DAILY 1 TABLET DAILY [facility] Hydrocodone-Acetaminophen 5-325 MG Oral Tablet Hydroco done-Acetaminophen 5-325 MG Oral Tablet Yes TAKE ONE TABLET BY MOUTH EVERY 8 HOURS NEEDED FOR PAIN. [facility] Rosuvastatin Calcium 40 MG Oral Tablet Rosuvastatin Calcium 40 M G Oral Tablet Yes TAKE 1 TABLET BY MOUTH DAILY [facility] Lisinopril-Hydrochlorothiazide 20-25 MG Oral Tablet Li sinopril- Hydrochlorothiazide 20-25 MG Oral Tablet Yes 1 QD TAKE 1 TABLET DAILY. [facility] DULoxetine HCl - 60 MG Oral Capsule Delayed Release Pa rticles DULoxetine HCl - 60 MG Oral Capsule Delayed Release Particles Yes TAKE 1 CAPSULE BY MOUTH EVERY DAY DIRECTED [facility] Atorvastatin Calcium 20 Mg Tablet Atorvastatin Calcium 20 Mg Tablet Yes 40 Bedtime [facility] Hydrochlorothiazide 25 Mg Tablet Hydrochlorothiazide 25 Mg Tablet Yes 50 Daily [facility] Losartan Potassium 25 Mg Tablet Losartan Potassium 25 Mg Tablet Yes 25 Daily [facility] Omeprazole 40 Mg Capsule. Omeprazole 40 Mg Capsule. Yes 20 Daily [facility] Prazosin Hcl 1 Mg Capsule Prazosin Hcl 1 Mg Capsule Yes 1 Bedtime [facility] Sertraline Hcl 100 Mg Tablet Sertraline Hcl 100 Mg Tablet Y es 200 Daily [facility] Trazodone Hcl 50 Mg Tablet Trazodone Hcl 50 Mg Tablet Yes 100 Bedtime as needed for Insomnia [facility] Alprazolam 1 Mg Tablet, 1 Mg Oral Alprazolam 1 Mg Tablet, 1 Mg O ral 2019-05-14 00:00:00 No 1 Twice A Day as needed for Anxie ty [facility] Donepezil Hcl (Aricept) 5 Mg Tablet, 5 Mg Oral Donepez il Hcl (Aricept) 5 Mg Tablet, 5 Mg Oral 2019-05-14 00:00:00 No 5 Bedtim e [facility] Hydroxyzine Hcl 25 Mg Tablet, 25 Mg Oral Hydroxyzine H cl 25 Mg Tablet, 25 Mg Oral 2019-05-14 00:00:00 No 25 Thre e Times A Day as needed for Itching [facility] Metoprolol Tartrate (Lopressor) 25 Mg Tab, 50 Mg Oral Metoprolol Tartrate (Lopressor) 25 Mg Tab, 50 Mg Oral 2019-05-14 00:00:00 No 50 Twice A Day [facility] Spironolactone 25 Mg Tablet, 50 Mg Oral Spironolactone 25 Mg Tablet, 50 Mg Oral 2019-05-14 00:00:00 No 50 Daily [facility] Amlodipine Besylate (Norvasc) 10 Mg Tab, 10 Mg Oral Am lodipine Besylate (Norvasc) 10 Mg Tab, 10 Mg Oral 2019-05-12 00:00:00 No 10 Daily [facility] Aspirin 81 Mg Tab.chew, 81 Mg Oral Aspirin 81 Mg Tab.chew, 81 Mg Oral 2019-05-12 00:00:00 No 81 Daily [facility] Escitalopram Oxalate (Lexapro) 10 Mg Tablet, 10 Mg Ora l Escitalopram Oxalate (Lexapro) 10 Mg Tablet, 10 Mg Oral 2019-05-12 00:00:00 No 1 0 Daily [facility] Gabapentin 300 Mg Capsule, 400 Mg Oral Gabapentin 300 Mg Capsule , 400 Mg Oral 2019-05-12 00:00:00 No 400 Three Times A Day [facility] Sumatriptan Succinate (Imitrex) 25 Mg Tablet, 1 Tab Or al Sumatriptan Succinate (Imitrex) 25 Mg Tablet, 1 Tab Oral 2019-05-12 00:00:00 No 1 As Needed as needed for Headache [facility] Tramadol Hcl (Ultram 50MG*) 50 Mg Tab, 50 Mg Oral Tram adol Hcl (Ultram 50MG*) 50 Mg Tab, 50 Mg Oral 2019-05-12 00:00:00 No 50 Every 6 Hours as needed [facility] Clonidine Hcl 0.1 Mg Tablet, 0.2 Mg Oral Clonidine Hcl 0.1 Mg Tablet, 0.2 Mg Oral 2016-12-03 00:00:00 No .2 Three Times A Day as needed [facility] Hydrochlorothiazide (Esidrix*) 25 Mg Tab, 25 Mg Oral H ydrochlorothiazide (Esidrix*) 25 Mg Tab, 25 Mg Oral 2016-12-03 00:00:00 No 25 Twice A Day [facility] Lisinopril 40 Mg Tablet, 40 Mg Oral Lisinopril 40 Mg Tablet, 40 Mg Oral 2016-12-03 00:00:00 No 40 Daily [facility] Omeprazole 20 Mg Capsule., 20 Mg Oral Omeprazole 20 Mg Antonio sebastian, 20 Mg Oral 2016-12-03 00:00:00 No 20 Before Breakfast [facility] Promethazine Hcl 50 Mg Tablet, 50 Mg Oral Promethazine Hcl 50 Mg Tablet, 50 Mg Oral 2016-12-03 00:00:00 No 50 Twice A Day as nee ded [facility] Rosuvastatin Calcium (Crestor) 40 Mg Tablet, 1 Tab Ora l Rosuvastatin Calcium (Crestor) 40 Mg Tablet, 1 Tab Oral 2016-12-03 00:00:00 No 1 Every Morning [facility] Acetaminophen/Butalbital/Caffeine (Fioricet) 1 Ea Tab, 1 Tab Oral Acetaminophen/Butalbital/Caffeine (Fioricet) 1 Ea Tab, 1 Tab Oral 2016-11-28 00:00:00 No 1 Every 4 Hours as needed for Yu bunch [facility] Fluoxetine Hcl 40 Mg Capsule, 40 Mg Oral Fluoxetine Hc l 40 Mg Capsule, 40 Mg Oral 2016-11-28 00:00:00 No 40 Daily [facility] Metoprolol Tartrate 50 Mg Tablet, 50 Mg Oral Metoprolo l Tartrate 50 Mg Tablet, 50 Mg Oral 2016-11-28 00:00:00 No 50 Twice A Day [facility] Simvastatin (Zocor) 20 Mg Tablet, 20 Mg Oral Simvastat in (Zocor) 20 Mg Tablet, 20 Mg Oral 2016-11-28 00:00:00 No 20 Bedtime [facility] Levomefolate Calcium (L-Methylfolate Calcium) 15 Mg Ta blet, 15 Mg Oral Levomefolate Calcium (L-Methylfolate Calcium) 15 Mg Tablet, 15 Mg Oral 2013-08-05 00:00:00 No 15 Daily [facility] Milnacipran Hcl (Savella) 50 Mg Tablet, 50 Mg Oral Mil nacipran Hcl (Savella) 50 Mg Tablet, 50 Mg Oral 2013-08-05 00:00:00 No 50 Tw ice A Day [facility] Vital Signs Vital Name Observation Time Observation Value Comments Source BP Systolic 2017-08-19 09:29:00 168 mm[Hg] Location: GUS Dao on: Sitting [facility] BP Diastolic 2017-08-19 09:29:00 104 mm[Hg] Location: GUS Dao on: Sitting [facility] Height 2017-08-19 09:29:00 61 [in_us] [facility] Weight 2017-08-19 09:29:00 192.0625 [lb_av] [facility] Body Mass Index Calculated 2017-08-19 09:29:00 36.29 kg/m2 [facility] Temperature 2017-08-19 09:29:00 97.6 [degF] Method: Oral [facility] Heart Rate 2017-08-19 09:29:00 98 /min Location: L Radial; Q uality: Normal [facility] Procedures Procedure Date / Time Performed Performing Clinician Grant e Magnetic resonance imaging of brain without contrast 2019-05 00:00:00 MONICAKEENANMIKAYLA Gilbert [facility] Computed tomography of brain without radiopaque contrast 201 02-12-10 00:00:00 PHANI VALDEZ [facility] EMG/NCS-Arm 2017-07-09 00:00:00 [facility] [U] XRAY SHOULDER MIN 2 VWS RIGHT [id number] 2017-06-12 00:00:00 [facility] History of Hysterectomy [facility] History of Breast Surgery [facility] History of Biopsy Lymph Node [facility] History of Abdominoplasty [facility] History of Additional Bilateral Renal Artery Catheterization Via Aorta [facility] Encounters Start Date/Time End Date/Time [facility]counter Type [facility] ID Source 2019-05-12 17:33:00 2019-05-14 11:18:00 Discharged Inpatient 1 APRIL BARRERA [facility] [id number] [facility] 2017-08-19 09:00:00 2017-08-19 09:00:00 Appointment; DARNELL HERRERA M.D. AHMED, MOUSTAFA, M.D. [facility] [id number] [facility] 2017-08-06 11:15:00 2017-08-06 11:15:00 Appointment; MARTINEZ LEWIS M.D. CRUMBIE, DAVID, M.D. [facility] [place] [id number] [facility] 2017-07-09 10:00:00 2017-07-09 10:00:00 Appointment; MARTINEZ LEWIS M.D. CRUMBIE, DAVID, M.D. [facility] [id number] [facility] 2017-07-09 10:00:00 2017-07-09 10:00:00 Appointment; MARTINEZ LEWIS M.D. CRUMBIE, DAVID, M.D. [facility] [id number] [facility] 2017-06-13 14:30:00 2017-06-13 14:30:00 Appointment; MARTINEZ LEWIS M.D. CRUMBIE, DAVID, M.D. [facility] [id number] [facility] 2016-08-29 12:16:00 2016-08-29 12:16:00 Outpatient Real S[place] [id number] Rohit Serrato MD Results Test Description Test Time Test Comments Results Result Comments Source Sodium Level 2019-05-14 04:11:00 Test Item Sodium Level (test code = 2951-2) 136 136-145 [facility] [id number] 04:11:00* Test Item Value Reference Range Interpretation Comments Potassium Level (test code = 2823-3) 3.3 3.5-5.1 L [facility] HospitalChloride [id number] 04:11:00* Test Item Value Reference Range Interpretation Comments Chloride Level (test code = 2075-0) 106 98-107 [facility] HospitalCarbon Dioxide [id number] 04:11:00* Test Item Value Reference Range Interpretation Comments Carbon Dioxide Level (test code = 2028-9) 20 22-29 L [facility] HospitalAnion [id number] 04:11:00* Test Item Value Reference Range Interpretation Comments Anion Gap (test code = 62427-5) 13.3 8-16 [facility] Urea [id number] 04:11:00* Test Item Value Reference Range Interpretation Comments Blood Urea Nitrogen (test code = 3094-0) 12 7-26 [facility] Hospital[facility]inine2019-12-12 04:11:00* Test Item Value Reference Range Interpretation Comments Creatinine (test code = 2160-0) 1.14 0.57-1.11 H [facility] HospitalBUN/Creatinine [id number] 04:11:00* Test Item Value Reference Range Interpretation Comments BUN/Creatinine Ratio (test code = 3097-3) 11 6-25 [facility] HospitalEstimat Glomerular Filtration Rate 2019-05-14 04:11:00* Test Item Value Reference Range Interpretation Comments Estimat Glomerular Filtration Rate (test code = 140346598) 48 >60 L Ranges were taken from the National Kidney Disease Education Program and the [facility] literature.Reference ranges:60 or greater: Bfmvrt95-03 ( for 3 consecutive months): Chronic kidney disease 15 or less: Kidney failureDriscoll Children's HospitalGlucose [id number] 04:11:00* Test Item Value Reference Range Interpretation Comments Glucose Level (test code = WPG2837) 77 74-118 [facility] HospitalCalcium [id number] 04:11:00* Test Item Value Reference Range Interpretation Comments Calcium Level (test code = 91481-6) 9.2 8.4-10.2 [facility] HospitalMagnesium [id number] 04:11:00* Test Item Value Reference Range Interpretation Comments Magnesium Level (test code = 04490-2) 2.0 1.3-2.1 [facility] HospitalWhite Blood [id number] 03:50:00* Test Item Value Reference Range Interpretation Comments White Blood Count (test code = 6690-2) 3.82 4.8-10.8 L [facility] HospitalRed Blood [id number] 03:50:00* Test Item Value Reference Range Interpretation Comments Red Blood Count (test code = 789-8) 3.80 3.6-5.1 [facility] HospitalHemoglobin2019-12-12 03:50:00* Test Item Value Reference Range Interpretation Comments Hemoglobin (test code = 70046-8) 10.9 12.0-16.0 L [facility] HospitalHematocrit2019-12-12 03:50:00* Test Item Value Reference Range Interpretation Comments Hematocrit (test code = 4544-3) 34.2 34.2-44.1 [facility] HospitalMean Corpuscular [id number] 03:50:00* Test Item Value Reference Range Interpretation Comments Mean Corpuscular Volume (test code = 787-2) 90.0 81-99 [facility] HospitalMean Corpuscular [id number] 03:50:00* Test Item Value Reference Range Interpretation Comments Mean Corpuscular Hemoglobin (test code = 785-6) 28.7 28-32 [facility] HospitalMean Corpuscular Hemoglobin Concent 2019-05-14 03:50:00* Test Item Value Reference Range Interpretation Comments Mean Corpuscular Hemoglobin Concent (test code = 786-4) 31.9 31-35 [facility] HospitalRed Cell Distribution [id number] 03:50:00* Test Item Value Reference Range Interpretation Comments Red Cell Distribution Width (test code = 29144-6) 16.3 11.7 -14.4 H [facility] HospitalPlatelet [id number] 03:50:00* Test Item Value Reference Range Interpretation Comments Platelet Count (test code = 777-3) 156 140-360 [facility] HospitalNeutrophils (%) (Auto)2019-05-14 03:50:00 * Test Item Value Reference Range Interpretation Comments Neutrophils (%) (Auto) (test code = 21815-4) 46.6 38.7-80.0 [facility] HospitalLymphocytes (%) (Auto)2019-05-14 03:50:00 * Test Item Value Reference Range Interpretation Comments Lymphocytes (%) (Auto) (test code = 736-9) 40.3 18.0-39.1 H [facility] HospitalMonocytes (%) (Auto)2019-05-14 03:50:00* Test Item Value Reference Range Interpretation Comments Monocytes (%) (Auto) (test code = 5905-5) 6.3 4.4-11.3 [facility] HospitalEosinophils (%) (Auto)2019-05-14 03:50:00 * Test Item Value Reference Range Interpretation Comments Eosinophils (%) (Auto) (test code = 713-8) 5.5 0.0-6.0 [facility] HospitalBasophils (%) (Auto)2019-05-14 03:50:00* Test Item Value Reference Range Interpretation Comments Basophils (%) (Auto) (test code = 706-2) 1.0 0.0-1.0 [facility] HospitalIM GRANULOCYTES %2019-05-14 03:50:00* Test Item Value Reference Range Interpretation Comments IM GRANULOCYTES % (test code = IM GRANULOCYTES %) 0.3 0.0- 1.0 [facility] HospitalNeutrophils # (Auto)2019-05-14 03:50:00* Test Item Value Reference Range Interpretation Comments Neutrophils # (Auto) (test code = 751-8) 1.8 2.1-6.9 L [facility] HospitalLymphocytes # (Auto)2019-05-14 03:50:00* Test Item Value Reference Range Interpretation Comments Lymphocytes # (Auto) (test code = 63165-4) 1.5 1.0-3.2 [facility] HospitalMonocytes # (Auto)2019-05-14 03:50:00* Test Item Value Reference Range Interpretation Comments Monocytes # (Auto) (test code = 742-7) 0.2 0.2-0.8 [facility] HospitalEosinophils # (Auto)2019-05-14 03:50:00* Test Item Value Reference Range Interpretation Comments Eosinophils # (Auto) (test code = 711-2) 0.2 0.0-0.4 [facility] HospitalBasophils # (Auto)2019-05-14 03:50:00* Test Item Value Reference Range Interpretation Comments Basophils # (Auto) (test code = 704-7) 0.0 0.0-0.1 [facility] HospitalAbsolute Immature Granulocyte (auto 2019-05-14 03:50:00* Test Item Value Reference Range Interpretation Comments Absolute Immature Granulocyte (auto (james t code = Absolute Immature Granulocyte (auto) 0.01 0-0.1 [facility] Opiates [id number] 21:08:00* Test Item Value Reference Range Interpretation Comments Urine Opiates Screen (test code = 69332-7) NEGATIVE NEGATIVE ALL TESTS PERFORMED MANUALLY ON [employer] TOX/SEE TESTCHI [facility]rine Barbiturates [id number] 21:08:00* Test Item Value Reference Range Interpretation Comments Urine Barbiturates Screen (test code = 449442030) NEGATIVE NEGA TIVE [facility] Phencyclidine Mgdbgd7512-15-13 21:08:00* Test Item Value Reference Range Interpretation Comments Urine Phencyclidine Screen (test code = 65379-3) NEGATIVE NEGAT YUDITH [facility] Hospital[facility]rine Amphetamines Dabobn4234-39-05 21:08:00* Test Item Value Reference Range Interpretation Comments Urine Amphetamines Screen (test code = 95139-1) NEGATIVE NEGATI VE [facility] Methamphetamines Dgagzg5885-93-67 21:08:00* Test Item Value Reference Range Interpretation Comments Urine Methamphetamines Screen (test code = Urine Metha mphetamines Screen) NEGATIVE NEGATIVE [facility] Benzodiazepines Inzkzs1153-56-84 21:08:00* Test Item Value Reference Range Interpretation Comments Urine Benzodiazepines Screen (test code = 08067-4) POSITIVE NEG ATIVE H This test provides only a screen. Positive results should be repeated by a confi rmatory test.[facility] Cocaine Screen 2019-05-13 21:08:00* Test Item Value Reference Range Interpretation Comments Urine Cocaine Screen (test code = 3398-5) NEGATIVE NEGATIVE [facility] Cannabinoids Msiwqv1392-96-32 21:08:00* Test Item Value Reference Range Interpretation Comments Urine Cannabinoids Screen (test code = 65232-2) POSITIVE NEGATI VE H THESE RESULTS ARE FOR MEDICAL TREATMENT ONLYTHIS REPORT CONTAINS UNCONFIR MED SCREENING RESULTS*POSITIVE RESULTS WILL BE CONFIRMED BY REFERENCE LAB UPON R EQUEST CUT-OFFDRUG CLASS CONCENTRATION ng/mLAmphetamines 1000Methamphetamines 1000Cocaine 300Opiate 300Phencyc lidine 25Cannabinoid 50Barbiturates 300Benzodiazepine 300Methadone 300 This test p rovides only a screen. Positive results should be repeated by a confirmatory james t.[facility] Methadone Znlxym8377-55-28 21:08:00* Test Item Value Reference Range Interpretation Comments Urine Methadone Screen (test code = 97741-2) NEGATIVE NEGATIVE THESE RESULTS ARE FOR MEDICAL TREATMENT ONLYTHIS REPORT CONTAINS UNCONFIR MED SCREENING RESULTS*POSITIVE RESULTS WILL BE CONFIRMED BY REFERENCE LAB UPON R EQUEST CUT-OFFDRUG CLASS CONCENTRATION ng/mLAmphetamines 1000Methamphetamines 1000Cocaine Metabolite 300Opiate 300Phencyc lidine 25Cannabinoid 50Barbiturates 300Benzodiazepine 300Methadone 300CHI [facility] RockVitamin B12 Ropfu9807-24-14 18:44:00* Test Item Value Reference Range Interpretation Comments Vitamin B12 Level (test code = 82290-2) 81 213-816 L [facility] HospitalBlood Wpbkbpn2027-95-45 18:34:00* Test Item Value Reference Range Interpretation Comments Blood Culture (test code = 42233666) NO GROWTH AFTER 24 HOURS [facility] HospitalEthyl Alcohol Fhmkk0309-66-81 18:14:00* Test Item Value Reference Range Interpretation Comments Ethyl Alcohol Level (test code = 5643-2) < 10.0 0.0-10.0 [facility] HospitalAmmonia2019-12-11 18:13:00* Test Item Value Reference Range Interpretation Comments Ammonia (test code = 08129-3) 56 31-123 [facility] HospitalMRI BRAIN [id number] 14:08:00 [facility] [address] [address] Patient Name: JUSTIN MILLER MR #: [id number] : 1955 Age/Sex: 64/F Req #: [id number] Adm Physician: APRIL BARRERA MD Ordered by: Jessica Anderson SHEET TURNER Report #: [id number] [facility] Room/Bed: [facility] Procedure: [id number] M RI/MRI BRAIN WO Exam Date: Exam Time: REPORT STATUS: Signed Examination: MRI BRAIN WO CONTRAST History: Altered mental status. Confusion. Comparison studies: Head CT performed May 12, 2019 Technique: Axial DWI, FLAIR, T2, GRE or SWI, and axial, coronal and sagittal T1. Intravenous contrast: None F indings: Scalp: No abnormal signal. No masses. Bone marrow: Normal in si gnal intensity. Brain volume: Adequate for age. No volume loss. Ventricl es: Normal in size and configuration. No hydrocephalus. Extra-axial spa rick: No abnormalities. Parenchyma: There are punctate and subtle conflu ent areas of T2/FLAIR hyperintensity in the periventricular and subcortical wh ite matter, nonspecific. Cortical-based area of chronic infarct is demonstrat ed in the superior parietal lobule. No masses, hemorrhage, or acute vascular insults. Suprasellar and sellar region: No abnormalities. Craniocervical junction: No abnormalities. The foramen magnum is patent. No Chiari malformat ions. Vessels: Normal flow-voids in the arteries and sinuses. Additional findings:None. IMPRESSION: No acute intracranial abnormalities. M ild chronic microvascular ischemic change. 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 Signed by: Dr. Beena Sandoval M.D. on 05/13/2019 2:11 PM Dictated By: BEENA JOSEPH MD Electron ically Signed By: BEENA JOSEPH MD on 05/13/19 1411 Transcribed By: FIONA on 05/13/19 1411 COPY TO: JESSICA ANDERSON SHEET TURNER Creatine Kinase [id number] 11:17:00* Test Item Value Reference Range Interpretation Comments Creatine Kinase MB (test code = 09923-3) 0.50 0-5.0 [facility] HospitalTroponin [id number] 11:17:00* Test Item Value Reference Range Interpretation Comments Troponin I (test code = NJD7044) 0.002 0-0.300 [facility] HospitalCreatine Jpyoze9542-21-09 10:39:00* Test Item Value Reference Range Interpretation Comments Creatine Kinase (test code = 2157-6) 22 29-168 L [facility] HospitalThyroid Stimulating Hormone (TSH) 2019-05-13 08:30:00* Test Item Value Reference Range Interpretation Comments Thyroid Stimulating Hormone (TSH) (test code = 04529-7) 1.834 0.350-4.940 [facility] HospitalTriglycerides Bwslo1847-24-74 07:05:00* Test Item Value Reference Range Interpretation Comments Triglycerides Level (test code = 2571-8) 106 0-149 [facility] HospitalCholesterol Usvpl4874-22-34 07:05:00* Test Item Value Reference Range Interpretation Comments Cholesterol Level (test code = 2093-3) 165 0-199 Less than 200 mg/dL Low Fyyd378 - 239 mg/dL Borderline Qmwz564 m g/dl and greater High Risk [facility] HospitalLDL Qumtbjgukpv1732-65-36 07:05:00* Test Item Value Reference Range Interpretation Comments LDL Cholesterol (test code = 2089-1) 112 60-130 [facility] HospitalHDL Mfislphhedn9899-83-46 07:05:00* Test Item Value Reference Range Interpretation Comments HDL Cholesterol (test code = 2085-9) 32 40-60 L [facility] HospitalCholesterol/HDL Wrzyd8931-73-55 07:05:00 * Test Item Value Reference Range Interpretation Comments Cholesterol/HDL Ratio (test code = 9830-1) 5.2 3.0-3.6 H [facility] HospitalHemoglobin A1c Nqhmtzs7998-12-21 06:33:00 * Test Item Value Reference Range Interpretation Comments Hemoglobin A1c Percent (test code = Hemoglobin A1c Percent) 5.0 4.0-7.0 [facility] HospitalPhosphorus Jprsg2194-69-11 03:56:00* Test Item Value Reference Range Interpretation Comments Phosphorus Level (test code = LIX7497) 4.1 2.3-4.7 [facility] HospitalTotal Qylcztmxk9484-78-08 03:56:00* Test Item Value Reference Range Interpretation Comments Total Bilirubin (test code = 1975-2) 0.3 0.2-1.2 [facility] HospitalAspartate Amino Transf (AST/SGOT) 2019-05-13 03:56:00* Test Item Value Reference Range Interpretation Comments Aspartate Amino Transf (AST/SGOT) (test code = Aspartate Amino Transf (AST/SGOT)) 8 5-34 [facility] HospitalAlanine Aminotransferase (ALT/SGPT) 2019-05-13 03:56:00* Test Item Value Reference Range Interpretation Comments Alanine Aminotransferase (ALT/SGPT) (test code = 1742-6) 9 0-55 [facility] HospitalTotal Dhrphaa8585-87-99 03:56:00* Test Item Value Reference Range Interpretation Comments Total Protein (test code = 2885-2) 5.2 6.5-8.1 L VERIFIED PREVIOUS RESULTSDriscoll Children's HospitalAlbumin 2019-05-13 03:56:00* Test Item Value Reference Range Interpretation Comments Albumin (test code = 1751-7) 2.9 3.5-5.0 L [facility] HospitalGlobulin2019-12-11 03:56:00* Test Item Value Reference Range Interpretation Comments Globulin (test code = 14539-8) 2.3 2.3-3.5 [facility] HospitalAlbumin/Globulin Waqva8002-74-34 03:56:00 * Test Item Value Reference Range Interpretation Comments Albumin/Globulin Ratio (test code = 1759-0) 1.3 0.8-2.0 [facility] HospitalAlkaline Dzjzpujfgkf8817-14-36 03:56:00* Test Item Value Reference Range Interpretation Comments Alkaline Phosphatase (test code = 6768-6) 50 40-150 [facility] HospitalB-Type Natriuretic Jdudprh1488-93-47 17:13:00* Test Item Value Reference Range Interpretation Comments B-Type Natriuretic Peptide (test code = 33925-2) 120.6 0-100 H [facility] HospitalLipase2019-12-10 17:01:00* Test Item Value Reference Range Interpretation Comments Lipase (test code = 3040-3) 44 8-78 [facility] HospitalUrine [id number] 16:46:00* Test Item Value Reference Range Interpretation Comments Urine WBC (test code = 5821-4) 6-10 0-5 H [facility] LOR5496-21-26 16:46:00* Test Item Value Reference Range Interpretation Comments Urine RBC (test code = 62629-0) 0-5 0-5 [facility] Gtodwueq6598-31-02 16:46:00* Test Item Value Reference Range Interpretation Comments Urine Bacteria (test code = 82251-0) MODERATE NONE [facility] Epithelial Ekpfx8624-07-19 16:46:00 * Test Item Value Reference Range Interpretation Comments Urine Epithelial Cells (test code = 11165-6) MANY NONE [facility] Transitional Epithelial Cells 2019-05-12 16:46:00* Test Item Value Reference Range Interpretation Comments Urine Transitional Epithelial Cells (test code = 8249-5) MODERATE NONE [facility] Amorphous Sqwiivna8731-70-70 16:46:00* Test Item Value Reference Range Interpretation Comments Urine Amorphous Sediment (test code = 8246-1) MODERATE FEW [facility] Hyaline Xlshz6978-04-41 16:46:00* Test Item Value Reference Range Interpretation Comments Urine Hyaline Casts (test code = 76214-2) 2-5 0-1 H [facility] Edscg2615-46-82 16:46:00* Test Item Value Reference Range Interpretation Comments Urine Mucus (test code = 8247-9) FEW RARE H [facility] Bgsen3476-50-17 16:35:00* Test Item Value Reference Range Interpretation Comments Urine Color (test code = 5778-6) YELLOW YELLOW [facility] Kjsyvgm6485-04-66 16:35:00* Test Item Value Reference Range Interpretation Comments Urine Clarity (test code = 13450-9) SL CLOUDY CLEAR [facility] HospitalUrine Specific Pdyyfzn0640-38-72 16:35:00 * Test Item Value Reference Range Interpretation Comments Urine Specific [place] (test code = 5811-5) 1.030 1.010-1.02 5 H [facility] pZ1806-47-19 16:35:00* Test Item Value Reference Range Interpretation Comments Urine pH (test code = 53997-6) 6 5-7 [facility] HospitalU[facility] Leukocyte Pibbstrk6065-25-08 16:35:00* Test Item Value Reference Range Interpretation Comments Urine Leukocyte Esterase (test code = 5799-2) TRACE NEGATIVE H [facility] HospitalUrine Tzeagsa8753-72-96 16:35:00* Test Item Value Reference Range Interpretation Comments Urine Nitrite (test code = 67245-7) NEGATIVE NEGATIVE [facility] HospitalUrine Feqnqyg0062-61-51 16:35:00* Test Item Value Reference Range Interpretation Comments Urine Protein (test code = 5804-0) 1+ NEGATIVE H [facility] HospitalUrine Glucose (UA)2019-05-12 16:35:00* Test Item Value Reference Range Interpretation Comments Urine Glucose (UA) (test code = 2349-9) NEGATIVE NEGATIVE [facility] HospitalUrine Dhiehjw5438-36-51 16:35:00* Test Item Value Reference Range Interpretation Comments Urine Ketones (test code = 89869-0) NEGATIVE NEGATIVE [facility] HospitalUrine Icdfqlpjjcds3634-52-43 16:35:00* Test Item Value Reference Range Interpretation Comments Urine Urobilinogen (test code = 47988-7) 0.2 0.2-1 [facility] HospitalUrine Gcjaymyni3799-25-27 16:35:00* Test Item Value Reference Range Interpretation Comments Urine Bilirubin (test code = 1978-6) 1+ NEGATIVE H [facility] HospitalUrine Dkocj1497-98-33 16:35:00* Test Item Value Reference Range Interpretation Comments Urine Blood (test code = 18180-1) TRACE NEGATIVE H [facility] HospitalCHEST SINGLE (PORTABLE)2019-05-12 16:30:00 [facility] [address] [address] Patient Name: JUSTIN MILLER MR #: [id number] : 1955 Age/Sex: 64/F Req #: [id number] Adm Physician: Ordered by: PHANI VALDEZ SHEET TURNER Report #: [id number] Location: ER Room/Bed: Procedure: [id number] D X/CHEST SINGLE (PORTABLE) Exam Date: 05/12/19 Exam T josue: 1605 REPORT STATUS: Signed EXAM: CHEST SINGLE (PORTABLE) DATE: 05/12/2019 3:49 PM INDICATION: Altered mental status COMPARISON: None FINDINGS: The trachea is mid line. There are mild left basilar opacities suggestive of atelectasis. The lucian gs are otherwise symmetrically expanded without evidence for large focal conso lidation, pneumothorax, or significant pleural effusion. The cardiomediasti nal silhouette and pulmonary vasculature are within normal limits. No acute os seous abnormality is identified. The surrounding soft tissues are unremarkable . IMPRESSION: No acute cardiopulmonary process identified. Sig trina by: Dr. Cl Baca MD on 05/12/2019 4:32 PM Dictated By: CL CALL MD 31 Transcribed By: FIONA on 05/12/191631 COPY TO: PHANI VALDEZ NP CT BRAIN [id number] 16:24:[address] [address] Patient Name: JUSTIN MILLER MR #: [id number] : 1955 Age/Sex: 64/F Req #: [id number] Adm Physician: Ordered by: PHANI VALDEZ SHEET TURNER Report #: [id number] Location: ER Room/Bed: Procedure: [id number] C T/CT BRAIN WO Exam Date: 05/12/19 Exam Time: 1552 REPORT STATUS: Signed CT BRAIN WO HISTORY: Altered mental status COMPARISON: Reports from MRI of the br ain 11/29/[address] 11/28/2016 Technique: Noncontrast axial scans w ere obtained from skull base to the vertex. Coronal and sagittal reconstructi ons obtained from the axial data. One or more of the following dose reduction techniques were used: Automated exposure control, adjustment of the mA and/or kV according to patient size, and/or utilization of iterative reconstruction technique. DISCUSSION: Scalp/Skull: Unremarkable. Brain sulci: Mildl y prominent. Ventricles: Compensatory dilatation. Extra-axial spaces: No mas ses or fluid collections. Carotid siphon calcifications are present. Pare nchyma: Mild bilateral deep white matter hypodensity is likely chronic microv ascular ischemic change. There is an associated old left caudate lacunar in farct. Old focal cortical infarcts are seen in the left inferior parietal lobu le and right inferior occipital lobe. Otherwise, no masses, hemorrhage, or l arge vascular territory acute infarct. Dural sinuses: No abnormal densitie s. Sellar/Suprasellar region: Intact. Skull base: Intact. Incidental findi ngs: None. IMPRESSION: 1. No acute intracranial abnormalities. 2. Mil d supratentorial chronic microvascular ischemic change. Mild generalized cereb ral volume loss. 3. Old small left parietal and right occipital cortical infa rct. Signed by: Dr. Sohail Moreira M.D. on 05/12/2019 4:28 PM Di ctated By: SOHAIL MOREIRA MD 27 Transcribed By: FIONA on 05/12/191627 COPY TO: PHANI VALDEZ NP Prothrombin Eyhv9136-30-66 16:19:00* Test Item Value Reference Range Interpretation Comments Prothrombin Time (test code = 5902-2) 12.5 11.9-14.5 [facility] HospitalProthromb Time International Ratio 2019-05-12 16:19:00* Test Item Value Reference Range Interpretation Comments Prothromb Time International Ratio (test code = 6301-6) 0.89 Oral Anticoagulant Therapy INR Values:1. Low Intensity Therapy 1.5 - 2.02 . Moderate Intensity Therapy 2.0 - 3.03. High Intensity Therapy(1) 2.5 - 3. 54. High Intensity Therapy(2) 3.0 - 4.05. Panic Value INR > 5.0 [facility] HospitalActivated Partial Thromboplast Time 2019-05-12 16:19:00* Test Item Value Reference Range Interpretation Comments Activated Partial Thromboplast Time (test code = 64890-8) 26.7 23.8-35.5 [facility] HospitalBASIC METABOLIC FUPKE5743-36-93 14:30:00 * Test Item Value Reference Range Interpretation Comments SODIUM (test code = NA) 137 mmol/L 136-145 N POTASSIUM (test code = K) 3.9 mmol/L 3.5-5.1 N CHLORIDE (test code = CL) 105.0 mmol/L 98-107 N CARBON DIOXIDE (test code = CO2) 21.0 mmol/L 21-32 N ANION GAP (test code = GAP) 14.9 10-20 N GLUCOSE (test code = GLU) 97 mg/dL 74-106 N BLOOD UREA NITROGEN (test code = BUN) 19 mg/dL 7-18 H GLOMERULAR FILTRATION RATE (test code = GFR) 35 mL/min >=60 Estimated GFR by using Modified MDRD formula.Chronic kidney disease is defined as either kidney damageor GFR <60 mL/min/1.73 m2 for >3 months. CREATININE (test code = CREAT) 1.50 mg/dL 0.55-1.02 H Note change in reference range due to change in reagent. BUN/CREATININE RATIO (test code = BUN/CREA) 12.8 10-20 N CALCIUM (test code = CA) 9.1 mg/dL 8.5-10.1 N HEPATIC FUNCTION [id number] 14:30:00* Test Item Value Reference Range Interpretation Comments TOTAL PROTEIN (test code = PROT) 7.4 gram/dL 6.4-8.2 N ALBUMIN (test code = ALB) 3.9 g/dL 3.4-5.0 N GLOBULIN (test code = GLOB) 3.5 gram/dL 2.7-4.2 N ALBUMIN/GLOBULIN RATIO (test code = A/G) 1.1 0.75-1.50 N BILIRUBIN TOTAL (test code = BILT) 0.70 mg/dL 0.0-1.0 N BILIRUBIN DIRECT (test code = BILD) 0.18 mg/dL 0.0-0.20 N SGOT/AST (test code = AST) 11 IUnit/L 15-37 L SGPT/ALT (test code = ALT) 22 IUnit/L 12-78 N ALKALINE PHOSPHATASE TOTAL (test code = ALKP) 72 IUnit/L 45-117 N Note change in reference range due to change in reagent. [id number] 14:30:00* Test Item Value Reference Range Interpretation Comments TROPONIN-I (test code = TROPI) <0.015 ng/mL 0-0.045 N - XR CHEST 1 [id number] 14:19:00 FAX: Alfonso Ascencio MD [phone] [place]: St: [facility] FAX: Chel Morelandy Travis [phone] Name: JUSTIN MILLER [facility] : 1955 Age/S: 64/F [address] [facility] Unit #: [id number] Loc: [place] [address] Phys: Alfonso Ascencio MD Acct: [id number] Dis Date: Status: REG ER PHONE #: [phone] Exam Date: 05/11/2019 1328 FAX #: [phone] Reason: AMS EXAMS: CPT CODE: [id number] XR CHEST 1 V [id number] REASON FOR EXAM: AMS Exam Order Date: 05/11/2019 12:44 PM Ordering MRamon: Alfonso Ascencio MD PROCEDURE: - XR CHEST [...] limits. IMPRESSION: No acute cardiopulmonary process. Location: [facility] Electronic ally Signed by Jimmy Gaspar MD on 05/11/2019 at 1419 Repo rted and signed by: Jimmy Gaspar MD CC: Alfonso Ascencio MD; Sudhakar Alegria DO Technologist: MIMA BRYAN RT(R) Trnscrd Date/Time/By: 05/11/2019 (8696) : By: [email or web address] Orig Print D/T: S: 05/11/2019 (3335) PAGE 1 Signed Report BASIC METABOLIC PANEL 2019-05-11 14:08:00* Test Item Value Reference Range Interpretation Comments SODIUM (test code = NA) 137 mmol/L 136-145 N POTASSIUM (test code = K) 3.9 mmol/L 3.5-5.1 N CHLORIDE (test code = CL) 105.0 mmol/L 98-107 N CARBON DIOXIDE (test code = CO2) mmol/L 21-32 ANION GAP (test code = GAP) 10-20 GLUCOSE (test code = GLU) mg/dL 74-106 BLOOD UREA NITROGEN (test code = BUN) mg/dL 7-18 GLOMERULAR FILTRATION RATE (test code = GFR) mL/min >=60 CREATININE (test code = CREAT) mg/dL 0.55-1.02 BUN/CREATININE RATIO (test code = BUN/CREA) 10-20 CALCIUM (test code = CA) mg/dL 8.5-10.1 HEPATIC FUNCTION [id number] 14:08:00* Test Item Value Reference Range Interpretation Comments TOTAL PROTEIN (test code = PROT) gram/dL 6.4-8.2 ALBUMIN (test code = ALB) g/dL 3.4-5.0 GLOBULIN (test code = GLOB) gram/dL 2.7-4.2 ALBUMIN/GLOBULIN RATIO (test code = A/G) 0.75-1.50 BILIRUBIN TOTAL (test code = BILT) mg/dL 0.0-1.0 BILIRUBIN DIRECT (test code = BILD) mg/dL 0.0-0.20 SGOT/AST (test code = AST) IUnit/L 15-37 SGPT/ALT (test code = ALT) IUnit/L 12-78 ALKALINE PHOSPHATASE TOTAL (test code = ALKP) IUnit/L 45-117 [id number] 14:08:00* Test Item Value Reference Range Interpretation Comments TROPONIN-I (test code = TROPI) ng/mL 0-0.045 - CT HEAD/BRAIN W/O [id number] 14:03:00 Name: JUSTIN MILLER [facility] : 1955 Age/S: 64 / F [address] [facility] Unit #: [id number] Loc: [facility] [place] [address] Phys: Alfonso Ascencio MD Acct: [id number] Dis Date: Status: REG ER PHONE #: [phone] Exam Date: 05/11/2019 1317 FAX #: [phone] Reason: AMS EXAMS: CPT CODE: [id number] CT HEAD/BRAIN W/O CONT 12420 HISTORY: AMS TECHNIQUE: Noncontrast 2.5 mm axial [...] shift. No effacement of the sulci or barbour-white matter interface. There is a small infarct [...] or appreciable change from prior exam.. Location: [facility] at 1403 Reported and signed by: Jimmy Gaspar MD CC: Alfonso Ascencio MD; Siddhartha Maria DO Technologist:Isai Vang RT(R),(MR),(CT); CTDI: DLP: Trnscb Date/Time: 05/11/2019 (0763) [email or web address] Orig Print D/T: S: 05/11/2019 (0913) PAGE 1 Signed Report CBC W/AUTO [id number] 13:32:00* Test Item Value Reference Range Interpretation Comments WHITE BLOOD CELL (test code = WBC) 6.0 K/mm3 4.5-12.5 N RED BLOOD CELL (test code = RBC) 4.29 mill/mm3 3.7-5.2 N HEMOGLOBIN (test code = HGB) 12.0 gram/dL 11.5-15.5 N HEMATOCRIT (test code = HCT) 37.9 % 36.0-46.0 N MEAN CELL VOLUME (test code = MCV) 88.3 fL 80-98 N MEAN CELL HGB (test code = MCH) 28.0 picogram 27.0-33.0 N MEAN CELL HGB CONCETRATION (test code = MCHC) 31.7 gram/dL 33.0-36. 0 L RED CELL DISTRIBUTION WIDTH (test code = RDW) 15.9 % 11.6-16. 2 N RED CELL DISTRIBUTION WIDTH SD (test code = RDW-SD) 51.6 fL 37 .0-51.0 H PLATELET COUNT (test code = PLT) 180 K/mm3 150-450 N MEAN PLATELET VOLUME (test code = MPV) 10.2 fL 6.7-11.0 N NEUTROPHIL % (test code = NT%) 69.0 % 39.0-69.0 N IMMATURE GRANULOCYTE % (test code = IG%) 0.3 % 0.0-5.0 N LYMPHOCYTE % (test code = LY%) 22.9 % 25.0-55.0 L MONOCYTE % (test code = MO%) 5.5 % 0.0-10.0 N EOSINOPHIL % (test code = EO%) 1.5 % 0.0-5.0 N BASOPHIL % (test code = BA%) 0.8 % 0.0-1.0 N NUCLEATED RBC % (test code = NRBC%) 0.0 % 0-0 N NEUTROPHIL # (test code = NT#) 4.11 K/mm3 1.8-7.7 N IMMATURE GRANULOCYTE # (test code = IG#) 0.02 x10 3/uL 0-0.03 N LYMPHOCYTE # (test code = LY#) 1.37 K/mm3 1.0-5.0 N MONOCYTE # (test code = MO#) 0.33 K/mm3 0-0.8 N EOSINOPHIL # (test code = EO#) 0.09 K/mm3 0.0-0.5 N BASOPHIL # (test code = BA#) 0.05 K/mm3 0.0-0.2 N NUCLEATED RBC # (test code = NRBC#) 0.00 K/mm3 0.0-0.1 N CBC W/AUTO [id number] 13:31:00* Test Item Value Reference Range Interpretation Comments WHITE BLOOD CELL (test code = WBC) K/mm3 4.5-12.5 RED BLOOD CELL (test code = RBC) mill/mm3 3.7-5.2 HEMOGLOBIN (test code = HGB) 12.0 gram/dL 11.5-15.5 N HEMATOCRIT (test code = HCT) 37.9 % 36.0-46.0 N MEAN CELL VOLUME (test code = MCV) fL 80-98 MEAN CELL HGB (test code = MCH) picogram 27.0-33.0 MEAN CELL HGB CONCETRATION (test code = MCHC) gram/dL 33.0-36. 0 RED CELL DISTRIBUTION WIDTH (test code = RDW) % 11.6-16. 2 RED CELL DISTRIBUTION WIDTH SD (test code = RDW-SD) fL 37 .0-51.0 PLATELET COUNT (test code = PLT) K/mm3 150-450 MEAN PLATELET VOLUME (test code = MPV) fL 6.7-11.0 NEUTROPHIL % (test code = NT%) % 39.0-69.0 IMMATURE GRANULOCYTE % (test code = IG%) % 0.0-5.0 LYMPHOCYTE % (test code = LY%) % 25.0-55.0 MONOCYTE % (test code = MO%) % 0.0-10.0 EOSINOPHIL % (test code = EO%) % 0.0-5.0 BASOPHIL % (test code = BA%) % 0.0-1.0 NEUTROPHIL # (test code = NT#) K/mm3 1.8-7.7 LYMPHOCYTE # (test code = LY#) K/mm3 1.0-5.0 MONOCYTE # (test code = MO#) K/mm3 0-0.8 EOSINOPHIL # (test code = EO#) K/mm3 0.0-0.5 BASOPHIL # (test code = BA#) K/mm3 0.0-0.2 PROCALCITONIN (PCT)2019-04-27 12:51:00* Test Item Value Reference Range Interpretation Comments PROCALCITONIN (PCT) (test code = PROCAL) < 0.05 ng/ml Concentration Interpretation (ng/mL) <0.51 [...] into account the patients history. BASIC METABOLIC [id number] 12:34:00* Test Item Value Reference Range Interpretation Comments SODIUM (test code = NA) 142 mmol/L 136-145 N POTASSIUM (test code = K) 4.3 mmol/L 3.5-5.1 N CHLORIDE (test code = CL) 110.0 mmol/L 98-107 H CARBON DIOXIDE (test code = CO2) 26.0 mmol/L 21-32 N ANION GAP (test code = GAP) 10.3 10-20 N GLUCOSE (test code = GLU) 79 mg/dL 74-106 N BLOOD UREA NITROGEN (test code = BUN) 32 mg/dL 7-18 H GLOMERULAR FILTRATION RATE (test code = GFR) 38 mL/min >=60 Estimated GFR by using Modified MDRD formula.Chronic kidney disease is defined as either kidney damageor GFR <60 mL/min/1.73 m2 for >3 months. CREATININE (test code = CREAT) 1.40 mg/dL 0.55-1.02 H Note change in reference range due to change in reagent. BUN/CREATININE RATIO (test code = BUN/CREA) 22.4 10-20 H CALCIUM (test code = CA) 8.8 mg/dL 8.5-10.1 N CBC W/AUTO [id number] 11:42:00* Test Item Value Reference Range Interpretation Comments WHITE BLOOD CELL (test code = WBC) 5.2 K/mm3 4.5-12.5 N RED BLOOD CELL (test code = RBC) 3.66 mill/mm3 3.7-5.2 L HEMOGLOBIN (test code = HGB) 10.3 gram/dL 11.5-15.5 L HEMATOCRIT (test code = HCT) 32.2 % 36.0-46.0 L MEAN CELL VOLUME (test code = MCV) 88.0 fL 80-98 N MEAN CELL HGB (test code = MCH) 28.1 picogram 27.0-33.0 N MEAN CELL HGB CONCETRATION (test code = MCHC) 32.0 gram/dL 33.0-36. 0 L RED CELL DISTRIBUTION WIDTH (test code = RDW) 14.5 % 11.6-16. 2 N RED CELL DISTRIBUTION WIDTH SD (test code = RDW-SD) 46.5 fL 37 .0-51.0 N PLATELET COUNT (test code = PLT) 148 K/mm3 150-450 L MEAN PLATELET VOLUME (test code = MPV) 10.2 fL 6.7-11.0 N NEUTROPHIL % (test code = NT%) 60.0 % 39.0-69.0 N IMMATURE GRANULOCYTE % (test code = IG%) 0.2 % 0.0-5.0 N LYMPHOCYTE % (test code = LY%) 28.7 % 25.0-55.0 N MONOCYTE % (test code = MO%) 6.2 % 0.0-10.0 N EOSINOPHIL % (test code = EO%) 4.1 % 0.0-5.0 N BASOPHIL % (test code = BA%) 0.8 % 0.0-1.0 N NUCLEATED RBC % (test code = NRBC%) 0.0 % 0-0 N NEUTROPHIL # (test code = NT#) 3.09 K/mm3 1.8-7.7 N IMMATURE GRANULOCYTE # (test code = IG#) 0.01 x10 3/uL 0-0.03 N LYMPHOCYTE # (test code = LY#) 1.48 K/mm3 1.0-5.0 N MONOCYTE # (test code = MO#) 0.32 K/mm3 0-0.8 N EOSINOPHIL # (test code = EO#) 0.21 K/mm3 0.0-0.5 N BASOPHIL # (test code = BA#) 0.04 K/mm3 0.0-0.2 N NUCLEATED RBC # (test code = NRBC#) 0.00 K/mm3 0.0-0.1 N MANUAL DIFF REQUIRED (test code = MDIFF) NO URINALYSIS [id number] 15:36:00* Test Item Value Reference Range Interpretation Comments UA COLOR (test code = COLU) YELLOW YELLOW UA APPEARANCE (test code = APPU) CLEAR CLEAR UA GLUCOSE DIPSTICK (test code = DGLUU) NEGATIVE mg/dL NEGATIVE UA BILIRUBIN DIPSTICK (test code = BILU) NEGATIVE mg/dL NEGATIVE UA KETONE DIPSTICK (test code = KETU) TRACE mg/dL NEGATIVE A UA SPECIFIC GRAVITY (test code = SGU) 1.031 1.001-1.035 UA BLOOD DIPSTICK (test code = JYOTHI) 0.03 mg/dL (Trace) mg/dL NEGATI VE A UA PH DIPSTICK (test code = MOY) 5.5 5.0-8.0 UA PROTEIN DIPSTICK (test code = PROU) 30 (1+) mg/dL NEGATIVE A UA UROBILINIOGEN DIPSTICK (test code = URO) Normal mg/dL NEGATIVE UA NITRITE DIPSTICK (test code = CARLY) NEGATIVE NEGATIVE UA LEUKOCYTE ESTERASE W REFLEX (test code = LEUUR) 75 Mariella/uL (1+) Mariella/uL NEGATIVE A UA WBC (test code = WBCU) 6-10 per HPF 0-5 A UA RBC (test code = RBCU) 0-2 #/HPF 0-5 UA EPITHELIAL CELLS (test code = EPIU) FEW per HPF FEW UA BACTERIA (test code = BACU) FEW #/HPF NONE A UA MUCUS (test code = MUCU) FEW #/LPF FEW Urine Source? Clean CatchURINALYSIS [id number] 14:58:00* Test Item Value Reference Range Interpretation Comments UA COLOR (test code = COLU) YELLOW YELLOW UA APPEARANCE (test code = APPU) CLEAR CLEAR UA GLUCOSE DIPSTICK (test code = DGLUU) NEGATIVE mg/dL NEGATIVE UA BILIRUBIN DIPSTICK (test code = BILU) NEGATIVE mg/dL NEGATIVE UA KETONE DIPSTICK (test code = KETU) TRACE mg/dL NEGATIVE A UA SPECIFIC GRAVITY (test code = SGU) 1.031 1.001-1.035 UA BLOOD DIPSTICK (test code = JYOTHI) 0.03 mg/dL (Trace) mg/dL NEGATI VE A UA PH DIPSTICK (test code = MOY) 5.5 5.0-8.0 UA PROTEIN DIPSTICK (test code = PROU) 30 (1+) mg/dL NEGATIVE A UA UROBILINIOGEN DIPSTICK (test code = URO) Normal mg/dL NEGATIVE UA NITRITE DIPSTICK (test code = CARLY) NEGATIVE NEGATIVE UA LEUKOCYTE ESTERASE W REFLEX (test code = LEUUR) 75 Mariella/uL (1+) Mariella/uL NEGATIVE A UA WBC (test code = WBCU) per HPF 0-5 UA RBC (test code = RBCU) per HPF 0-5 UA EPITHELIAL CELLS (test code = EPIU) per HPF Few UA BACTERIA (test code = BACU) per HPF NONE Urine Source? Clean CatchCOMPREHENSIVE METABOLIC [id number] 11:58:00* Test Item Value Reference Range Interpretation Comments SODIUM (test code = NA) 141 mmol/L 136-145 N POTASSIUM (test code = K) 3.2 mmol/L 3.5-5.1 L CHLORIDE (test code = CL) 108.0 mmol/L 98-107 H CARBON DIOXIDE (test code = CO2) 27.0 mmol/L 21-32 N ANION GAP (test code = GAP) 9.2 10-20 L GLUCOSE (test code = GLU) 107 mg/dL 74-106 H BLOOD UREA NITROGEN (test code = BUN) 29 mg/dL 7-18 H GLOMERULAR FILTRATION RATE (test code = GFR) 38 mL/min >=60 Estimated GFR by using Modified MDRD formula.Chronic kidney disease is defined as either kidney damageor GFR <60 mL/min/1.73 m2 for >3 months. CREATININE (test code = CREAT) 1.40 mg/dL 0.55-1.02 H Note change in reference range due to change in reagent. BUN/CREATININE RATIO (test code = BUN/CREA) 20.6 10-20 H TOTAL PROTEIN (test code = PROT) 6.5 gram/dL 6.4-8.2 N ALBUMIN (test code = ALB) 3.1 g/dL 3.4-5.0 L GLOBULIN (test code = GLOB) 3.4 gram/dL 2.7-4.2 N ALBUMIN/GLOBULIN RATIO (test code = A/G) 0.9 0.75-1.50 N CALCIUM (test code = CA) 8.4 mg/dL 8.5-10.1 L BILIRUBIN TOTAL (test code = BILT) 0.30 mg/dL 0.0-1.0 N SGOT/AST (test code = AST) 31 IUnit/L 15-37 N SGPT/ALT (test code = ALT) 19 IUnit/L 12-78 N ALKALINE PHOSPHATASE TOTAL (test code = ALKP) 55 IUnit/L 45-117 N Note change in reference range due to change in reagent. COMPREHENSIVE METABOLIC [id number] 11:41:00* Test Item Value Reference Range Interpretation Comments SODIUM (test code = NA) 141 mmol/L 136-145 N POTASSIUM (test code = K) 3.2 mmol/L 3.5-5.1 L CHLORIDE (test code = CL) 108.0 mmol/L 98-107 H CARBON DIOXIDE (test code = CO2) mmol/L 21-32 ANION GAP (test code = GAP) 10-20 GLUCOSE (test code = GLU) mg/dL 74-106 BLOOD UREA NITROGEN (test code = BUN) mg/dL 7-18 GLOMERULAR FILTRATION RATE (test code = GFR) mL/min >=60 CREATININE (test code = CREAT) mg/dL 0.55-1.02 BUN/CREATININE RATIO (test code = BUN/CREA) 10-20 TOTAL PROTEIN (test code = PROT) gram/dL 6.4-8.2 ALBUMIN (test code = ALB) g/dL 3.4-5.0 GLOBULIN (test code = GLOB) gram/dL 2.7-4.2 ALBUMIN/GLOBULIN RATIO (test code = A/G) 0.75-1.50 CALCIUM (test code = CA) mg/dL 8.5-10.1 BILIRUBIN TOTAL (test code = BILT) mg/dL 0.0-1.0 SGOT/AST (test code = AST) IUnit/L 15-37 SGPT/ALT (test code = ALT) IUnit/L 12-78 ALKALINE PHOSPHATASE TOTAL (test code = ALKP) IUnit/L 45-117 CBC W/AUTO [id number] 10:56:00* Test Item Value Reference Range Interpretation Comments WHITE BLOOD CELL (test code = WBC) 5.4 K/mm3 4.5-12.5 N RED BLOOD CELL (test code = RBC) 3.82 mill/mm3 3.7-5.2 N HEMOGLOBIN (test code = HGB) 10.6 gram/dL 11.5-15.5 L HEMATOCRIT (test code = HCT) 33.1 % 36.0-46.0 L MEAN CELL VOLUME (test code = MCV) 86.6 fL 80-98 N MEAN CELL HGB (test code = MCH) 27.7 picogram 27.0-33.0 N MEAN CELL HGB CONCETRATION (test code = MCHC) 32.0 gram/dL 33.0-36. 0 L RED CELL DISTRIBUTION WIDTH (test code = RDW) 14.5 % 11.6-16. 2 N RED CELL DISTRIBUTION WIDTH SD (test code = RDW-SD) 45.7 fL 37 .0-51.0 N PLATELET COUNT (test code = PLT) 145 K/mm3 150-450 L MEAN PLATELET VOLUME (test code = MPV) 10.1 fL 6.7-11.0 N NEUTROPHIL % (test code = NT%) 67.6 % 39.0-69.0 N IMMATURE GRANULOCYTE % (test code = IG%) 0.2 % 0.0-5.0 N LYMPHOCYTE % (test code = LY%) 23.2 % 25.0-55.0 L MONOCYTE % (test code = MO%) 5.0 % 0.0-10.0 N EOSINOPHIL % (test code = EO%) 3.3 % 0.0-5.0 N BASOPHIL % (test code = BA%) 0.7 % 0.0-1.0 N NUCLEATED RBC % (test code = NRBC%) 0.0 % 0-0 N NEUTROPHIL # (test code = NT#) 3.63 K/mm3 1.8-7.7 N IMMATURE GRANULOCYTE # (test code = IG#) 0.01 x10 3/uL 0-0.03 N LYMPHOCYTE # (test code = LY#) 1.25 K/mm3 1.0-5.0 N MONOCYTE # (test code = MO#) 0.27 K/mm3 0-0.8 N EOSINOPHIL # (test code = EO#) 0.18 K/mm3 0.0-0.5 N BASOPHIL # (test code = BA#) 0.04 K/mm3 0.0-0.2 N NUCLEATED RBC # (test code = NRBC#) 0.00 K/mm3 0.0-0.1 N [id number] 16:07:00* Test Item Value Reference Range Interpretation Comments GLUBED (test code = GLUBED) 87 mg/dL 74-106 N Performed by certified flat folding machine operator at [facility] [id number] 12:22:00* Test Item Value Reference Range Interpretation Comments GLUBED (test code = GLUBED) 148 mg/dL 74-106 H Performed by certified flat folding machine operator at [facility] [id number] 08:38:00* Test Item Value Reference Range Interpretation Comments GLUBED (test code = GLUBED) 87 mg/dL 74-106 N Performed by certified flat folding machine operator at [facility] COMPREHENSIVE METABOLIC [id number] 08:14:00* Test Item Value Reference Range Interpretation Comments SODIUM (test code = NA) 143 mmol/L 136-145 N POTASSIUM (test code = K) 3.7 mmol/L 3.5-5.1 N CHLORIDE (test code = CL) 110.0 mmol/L 98-107 H CARBON DIOXIDE (test code = CO2) 26.0 mmol/L 21-32 N ANION GAP (test code = GAP) 10.7 10-20 N GLUCOSE (test code = GLU) 84 mg/dL 74-106 N BLOOD UREA NITROGEN (test code = BUN) 21 mg/dL 7-18 H GLOMERULAR FILTRATION RATE (test code = GFR) 38 mL/min >=60 Estimated GFR by using Modified MDRD formula.Chronic kidney disease is defined as either kidney damageor GFR <60 mL/min/1.73 m2 for >3 months. CREATININE (test code = CREAT) 1.40 mg/dL 0.55-1.02 H Note change in reference range due to change in reagent. BUN/CREATININE RATIO (test code = BUN/CREA) 15.4 10-20 N TOTAL PROTEIN (test code = PROT) 6.2 gram/dL 6.4-8.2 L ALBUMIN (test code = ALB) 3.0 g/dL 3.4-5.0 L GLOBULIN (test code = GLOB) 3.2 gram/dL 2.7-4.2 N ALBUMIN/GLOBULIN RATIO (test code = A/G) 0.9 0.75-1.50 N CALCIUM (test code = CA) 8.5 mg/dL 8.5-10.1 N BILIRUBIN TOTAL (test code = BILT) 0.40 mg/dL 0.0-1.0 N SGOT/AST (test code = AST) 48 IUnit/L 15-37 H SGPT/ALT (test code = ALT) 18 IUnit/L 12-78 N ALKALINE PHOSPHATASE TOTAL (test code = ALKP) 54 IUnit/L 45-117 N Note change in reference range due to change in reagent. [id number] 08:14:00* Test Item Value Reference Range Interpretation Comments MAGNESIUM (test code = MAG) 1.8 mg/dL 1.8-2.4 N COMPREHENSIVE METABOLIC [id number] 08:08:00* Test Item Value Reference Range Interpretation Comments SODIUM (test code = NA) 143 mmol/L 136-145 N POTASSIUM (test code = K) 3.7 mmol/L 3.5-5.1 N CHLORIDE (test code = CL) 110.0 mmol/L 98-107 H CARBON DIOXIDE (test code = CO2) mmol/L 21-32 ANION GAP (test code = GAP) 10-20 GLUCOSE (test code = GLU) mg/dL 74-106 BLOOD UREA NITROGEN (test code = BUN) mg/dL 7-18 GLOMERULAR FILTRATION RATE (test code = GFR) mL/min >=60 CREATININE (test code = CREAT) mg/dL 0.55-1.02 BUN/CREATININE RATIO (test code = BUN/CREA) 10-20 TOTAL PROTEIN (test code = PROT) gram/dL 6.4-8.2 ALBUMIN (test code = ALB) g/dL 3.4-5.0 GLOBULIN (test code = GLOB) gram/dL 2.7-4.2 ALBUMIN/GLOBULIN RATIO (test code = A/G) 0.75-1.50 CALCIUM (test code = CA) mg/dL 8.5-10.1 BILIRUBIN TOTAL (test code = BILT) mg/dL 0.0-1.0 SGOT/AST (test code = AST) IUnit/L 15-37 SGPT/ALT (test code = ALT) IUnit/L 12-78 ALKALINE PHOSPHATASE TOTAL (test code = ALKP) IUnit/L 45-117 [id number] 08:08:00* Test Item Value Reference Range Interpretation Comments MAGNESIUM (test code = MAG) mg/dL 1.8-2.4 CBC W/AUTO [id number] 07:38:00* Test Item Value Reference Range Interpretation Comments WHITE BLOOD CELL (test code = WBC) 5.7 K/mm3 4.5-12.5 N RED BLOOD CELL (test code = RBC) 4.00 mill/mm3 3.7-5.2 N HEMOGLOBIN (test code = HGB) 11.1 gram/dL 11.5-15.5 L HEMATOCRIT (test code = HCT) 33.8 % 36.0-46.0 L MEAN CELL VOLUME (test code = MCV) 84.5 fL 80-98 N MEAN CELL HGB (test code = MCH) 27.8 picogram 27.0-33.0 N MEAN CELL HGB CONCETRATION (test code = MCHC) 32.8 gram/dL 33.0-36. 0 L RED CELL DISTRIBUTION WIDTH (test code = RDW) 14.6 % 11.6-16. 2 N RED CELL DISTRIBUTION WIDTH SD (test code = RDW-SD) 44.9 fL 37 .0-51.0 N PLATELET COUNT (test code = PLT) 147 K/mm3 150-450 L MEAN PLATELET VOLUME (test code = MPV) 10.1 fL 6.7-11.0 N NEUTROPHIL % (test code = NT%) 63.9 % 39.0-69.0 N IMMATURE GRANULOCYTE % (test code = IG%) 0.2 % 0.0-5.0 N LYMPHOCYTE % (test code = LY%) 25.3 % 25.0-55.0 N MONOCYTE % (test code = MO%) 6.0 % 0.0-10.0 N EOSINOPHIL % (test code = EO%) 3.7 % 0.0-5.0 N BASOPHIL % (test code = BA%) 0.9 % 0.0-1.0 N NUCLEATED RBC % (test code = NRBC%) 0.0 % 0-0 N NEUTROPHIL # (test code = NT#) 3.64 K/mm3 1.8-7.7 N IMMATURE GRANULOCYTE # (test code = IG#) 0.01 x10 3/uL 0-0.03 N LYMPHOCYTE # (test code = LY#) 1.44 K/mm3 1.0-5.0 N MONOCYTE # (test code = MO#) 0.34 K/mm3 0-0.8 N EOSINOPHIL # (test code = EO#) 0.21 K/mm3 0.0-0.5 N BASOPHIL # (test code = BA#) 0.05 K/mm3 0.0-0.2 N NUCLEATED RBC # (test code = NRBC#) 0.00 K/mm3 0.0-0.1 N [id number] 16:24:00* Test Item Value Reference Range Interpretation Comments GLUBED (test code = GLUBED) 89 mg/dL 74-106 N Performed by certified flat folding machine operator at [facility] [id number] 12:59:00* Test Item Value Reference Range Interpretation Comments GLUBED (test code = GLUBED) 83 mg/dL 74-106 N [facility] certified flat folding machine [facility] CBC W/AUTO [id number] 11:41:00* Test Item Value Reference Range Interpretation Comments WHITE BLOOD CELL (test code = WBC) 5.3 K/mm3 4.5-12.5 N RED BLOOD CELL (test code = RBC) 3.92 mill/mm3 3.7-5.2 N HEMOGLOBIN (test code = HGB) 11.1 gram/dL 11.5-15.5 L HEMATOCRIT (test code = HCT) 34.5 % 36.0-46.0 L MEAN CELL VOLUME (test code = MCV) 88.0 fL 80-98 N MEAN CELL HGB (test code = MCH) 28.3 picogram 27.0-33.0 N MEAN CELL HGB CONCETRATION (test code = MCHC) 32.2 gram/dL 33.0-36. 0 L RED CELL DISTRIBUTION WIDTH (test code = RDW) 14.7 % 11.6-16. 2 N RED CELL DISTRIBUTION WIDTH SD (test code = RDW-SD) 47.4 fL 37 .0-51.0 N PLATELET COUNT (test code = PLT) 165 K/mm3 150-450 N MEAN PLATELET VOLUME (test code = MPV) 11.1 fL 6.7-11.0 H NEUTROPHIL % (test code = NT%) 64.0 % 39.0-69.0 N IMMATURE GRANULOCYTE % (test code = IG%) 0.2 % 0.0-5.0 N LYMPHOCYTE % (test code = LY%) 27.0 % 25.0-55.0 N MONOCYTE % (test code = MO%) 7.4 % 0.0-10.0 N EOSINOPHIL % (test code = EO%) 0.8 % 0.0-5.0 N BASOPHIL % (test code = BA%) 0.6 % 0.0-1.0 N NUCLEATED RBC % (test code = NRBC%) 0.6 % 0-0 H NEUTROPHIL # (test code = NT#) 3.36 K/mm3 1.8-7.7 N IMMATURE GRANULOCYTE # (test code = IG#) 0.01 x10 3/uL 0-0.03 N LYMPHOCYTE # (test code = LY#) 1.42 K/mm3 1.0-5.0 N MONOCYTE # (test code = MO#) 0.39 K/mm3 0-0.8 N EOSINOPHIL # (test code = EO#) 0.04 K/mm3 0.0-0.5 N BASOPHIL # (test code = BA#) 0.03 K/mm3 0.0-0.2 N NUCLEATED RBC # (test code = NRBC#) 0.03 K/mm3 0.0-0.1 N MANUAL DIFF REQUIRED (test code = MDIFF) NO, ONLY SCAN NEEDED DIFFERENTIAL [id number] 11:41:00* Test Item Value Reference Range Interpretation Comments STAIN ACCEPTABILITY (test code = STN ACCEPTABLE) STAIN ACCEPTABLE POIKILOCYTOSIS (test code = POIK) 1+ ANISOCYTOSIS (test code = ANISO) 1+ PLATELET ESTIMATE (test code = PLTEST) ADEQUATE PLATELET MORPHOLOGY (test code = PLTMORPH) NORMAL CBC W/AUTO [id number] 10:00:00* Test Item Value Reference Range Interpretation Comments WHITE BLOOD CELL (test code = WBC) 5.3 K/mm3 4.5-12.5 N RED BLOOD CELL (test code = RBC) 3.92 mill/mm3 3.7-5.2 N HEMOGLOBIN (test code = HGB) 11.1 gram/dL 11.5-15.5 L HEMATOCRIT (test code = HCT) 34.5 % 36.0-46.0 L MEAN CELL VOLUME (test code = MCV) 88.0 fL 80-98 N MEAN CELL HGB (test code = MCH) 28.3 picogram 27.0-33.0 N MEAN CELL HGB CONCETRATION (test code = MCHC) 32.2 gram/dL 33.0-36. 0 L RED CELL DISTRIBUTION WIDTH (test code = RDW) 14.7 % 11.6-16. 2 N RED CELL DISTRIBUTION WIDTH SD (test code = RDW-SD) 47.4 fL 37 .0-51.0 N PLATELET COUNT (test code = PLT) 165 K/mm3 150-450 N MEAN PLATELET VOLUME (test code = MPV) 11.1 fL 6.7-11.0 H NEUTROPHIL % (test code = NT%) 64.0 % 39.0-69.0 N IMMATURE GRANULOCYTE % (test code = IG%) 0.2 % 0.0-5.0 N LYMPHOCYTE % (test code = LY%) 27.0 % 25.0-55.0 N MONOCYTE % (test code = MO%) 7.4 % 0.0-10.0 N EOSINOPHIL % (test code = EO%) 0.8 % 0.0-5.0 N BASOPHIL % (test code = BA%) 0.6 % 0.0-1.0 N NUCLEATED RBC % (test code = NRBC%) 0.6 % 0-0 H NEUTROPHIL # (test code = NT#) 3.36 K/mm3 1.8-7.7 N IMMATURE GRANULOCYTE # (test code = IG#) 0.01 x10 3/uL 0-0.03 N LYMPHOCYTE # (test code = LY#) 1.42 K/mm3 1.0-5.0 N MONOCYTE # (test code = MO#) 0.39 K/mm3 0-0.8 N EOSINOPHIL # (test code = EO#) 0.04 K/mm3 0.0-0.5 N BASOPHIL # (test code = BA#) 0.03 K/mm3 0.0-0.2 N NUCLEATED RBC # (test code = NRBC#) 0.03 K/mm3 0.0-0.1 N MANUAL DIFF REQUIRED (test code = MDIFF) NO, ONLY SCAN NEEDED DIFFERENTIAL [id number] 10:00:00* Test Item Value Reference Range Interpretation Comments STAIN ACCEPTABILITY (test code = STN ACCEPTABLE) CABOT RINGS (test code = CAB) MORPHOLOGY COMMENT (test code = MOC) PLATELET ESTIMATE (test code = PLTEST) PLATELET MORPHOLOGY (test code = PLTMORPH) CBC W/AUTO [id number] 10:00:00* Test Item Value Reference Range Interpretation Comments WHITE BLOOD CELL (test code = WBC) 5.3 K/mm3 4.5-12.5 N RED BLOOD CELL (test code = RBC) 3.92 mill/mm3 3.7-5.2 N HEMOGLOBIN (test code = HGB) 11.1 gram/dL 11.5-15.5 L HEMATOCRIT (test code = HCT) 34.5 % 36.0-46.0 L MEAN CELL VOLUME (test code = MCV) 88.0 fL 80-98 N MEAN CELL HGB (test code = MCH) 28.3 picogram 27.0-33.0 N MEAN CELL HGB CONCETRATION (test code = MCHC) 32.2 gram/dL 33.0-36. 0 L RED CELL DISTRIBUTION WIDTH (test code = RDW) 14.7 % 11.6-16. 2 N RED CELL DISTRIBUTION WIDTH SD (test code = RDW-SD) 47.4 fL 37 .0-51.0 N PLATELET COUNT (test code = PLT) 165 K/mm3 150-450 N MEAN PLATELET VOLUME (test code = MPV) 11.1 fL 6.7-11.0 H NEUTROPHIL % (test code = NT%) 64.0 % 39.0-69.0 N IMMATURE GRANULOCYTE % (test code = IG%) 0.2 % 0.0-5.0 N LYMPHOCYTE % (test code = LY%) 27.0 % 25.0-55.0 N MONOCYTE % (test code = MO%) 7.4 % 0.0-10.0 N EOSINOPHIL % (test code = EO%) 0.8 % 0.0-5.0 N BASOPHIL % (test code = BA%) 0.6 % 0.0-1.0 N NUCLEATED RBC % (test code = NRBC%) 0.6 % 0-0 H NEUTROPHIL # (test code = NT#) 3.36 K/mm3 1.8-7.7 N IMMATURE GRANULOCYTE # (test code = IG#) 0.01 x10 3/uL 0-0.03 N LYMPHOCYTE # (test code = LY#) 1.42 K/mm3 1.0-5.0 N MONOCYTE # (test code = MO#) 0.39 K/mm3 0-0.8 N EOSINOPHIL # (test code = EO#) 0.04 K/mm3 0.0-0.5 N BASOPHIL # (test code = BA#) 0.03 K/mm3 0.0-0.2 N NUCLEATED RBC # (test code = NRBC#) 0.03 K/mm3 0.0-0.1 N MANUAL DIFF REQUIRED (test code = MDIFF) NO, ONLY SCAN NEEDED DIFFERENTIAL [id number] 10:00:00* Test Item Value Reference Range Interpretation Comments STAIN ACCEPTABILITY (test code = STN ACCEPTABLE) CABOT RINGS (test code = CAB) MORPHOLOGY COMMENT (test code = MOC) PLATELET ESTIMATE (test code = PLTEST) PLATELET MORPHOLOGY (test code = PLTMORPH) CBC W/AUTO [id number] 10:00:00* Test Item Value Reference Range Interpretation Comments WHITE BLOOD CELL (test code = WBC) 5.3 K/mm3 4.5-12.5 N RED BLOOD CELL (test code = RBC) 3.92 mill/mm3 3.7-5.2 N HEMOGLOBIN (test code = HGB) 11.1 gram/dL 11.5-15.5 L HEMATOCRIT (test code = HCT) 34.5 % 36.0-46.0 L MEAN CELL VOLUME (test code = MCV) 88.0 fL 80-98 N MEAN CELL HGB (test code = MCH) 28.3 picogram 27.0-33.0 N MEAN CELL HGB CONCETRATION (test code = MCHC) 32.2 gram/dL 33.0-36. 0 L RED CELL DISTRIBUTION WIDTH (test code = RDW) 14.7 % 11.6-16. 2 N RED CELL DISTRIBUTION WIDTH SD (test code = RDW-SD) 47.4 fL 37 .0-51.0 N PLATELET COUNT (test code = PLT) 165 K/mm3 150-450 N MEAN PLATELET VOLUME (test code = MPV) 11.1 fL 6.7-11.0 H NEUTROPHIL % (test code = NT%) 64.0 % 39.0-69.0 N IMMATURE GRANULOCYTE % (test code = IG%) 0.2 % 0.0-5.0 N LYMPHOCYTE % (test code = LY%) 27.0 % 25.0-55.0 N MONOCYTE % (test code = MO%) 7.4 % 0.0-10.0 N EOSINOPHIL % (test code = EO%) 0.8 % 0.0-5.0 N BASOPHIL % (test code = BA%) 0.6 % 0.0-1.0 N NUCLEATED RBC % (test code = NRBC%) 0.6 % 0-0 H NEUTROPHIL # (test code = NT#) 3.36 K/mm3 1.8-7.7 N IMMATURE GRANULOCYTE # (test code = IG#) 0.01 x10 3/uL 0-0.03 N LYMPHOCYTE # (test code = LY#) 1.42 K/mm3 1.0-5.0 N MONOCYTE # (test code = MO#) 0.39 K/mm3 0-0.8 N EOSINOPHIL # (test code = EO#) 0.04 K/mm3 0.0-0.5 N BASOPHIL # (test code = BA#) 0.03 K/mm3 0.0-0.2 N NUCLEATED RBC # (test code = NRBC#) 0.03 K/mm3 0.0-0.1 N MANUAL DIFF REQUIRED (test code = MDIFF) NO, ONLY SCAN NEEDED DIFFERENTIAL [id number] 10:00:00* Test Item Value Reference Range Interpretation Comments STAIN ACCEPTABILITY (test code = STN ACCEPTABLE) MORPHOLOGY COMMENT (test code = MOC) PLATELET ESTIMATE (test code = PLTEST) PLATELET MORPHOLOGY (test code = PLTMORPH) CBC W/AUTO [id number] 10:00:00* Test Item Value Reference Range Interpretation Comments WHITE BLOOD CELL (test code = WBC) 5.3 K/mm3 4.5-12.5 N RED BLOOD CELL (test code = RBC) 3.92 mill/mm3 3.7-5.2 N HEMOGLOBIN (test code = HGB) 11.1 gram/dL 11.5-15.5 L HEMATOCRIT (test code = HCT) 34.5 % 36.0-46.0 L MEAN CELL VOLUME (test code = MCV) 88.0 fL 80-98 N MEAN CELL HGB (test code = MCH) 28.3 picogram 27.0-33.0 N MEAN CELL HGB CONCETRATION (test code = MCHC) 32.2 gram/dL 33.0-36. 0 L RED CELL DISTRIBUTION WIDTH (test code = RDW) 14.7 % 11.6-16. 2 N RED CELL DISTRIBUTION WIDTH SD (test code = RDW-SD) 47.4 fL 37 .0-51.0 N PLATELET COUNT (test code = PLT) 165 K/mm3 150-450 N MEAN PLATELET VOLUME (test code = MPV) 11.1 fL 6.7-11.0 H NEUTROPHIL % (test code = NT%) 64.0 % 39.0-69.0 N IMMATURE GRANULOCYTE % (test code = IG%) 0.2 % 0.0-5.0 N LYMPHOCYTE % (test code = LY%) 27.0 % 25.0-55.0 N MONOCYTE % (test code = MO%) 7.4 % 0.0-10.0 N EOSINOPHIL % (test code = EO%) 0.8 % 0.0-5.0 N BASOPHIL % (test code = BA%) 0.6 % 0.0-1.0 N NUCLEATED RBC % (test code = NRBC%) 0.6 % 0-0 H NEUTROPHIL # (test code = NT#) 3.36 K/mm3 1.8-7.7 N IMMATURE GRANULOCYTE # (test code = IG#) 0.01 x10 3/uL 0-0.03 N LYMPHOCYTE # (test code = LY#) 1.42 K/mm3 1.0-5.0 N MONOCYTE # (test code = MO#) 0.39 K/mm3 0-0.8 N EOSINOPHIL # (test code = EO#) 0.04 K/mm3 0.0-0.5 N BASOPHIL # (test code = BA#) 0.03 K/mm3 0.0-0.2 N NUCLEATED RBC # (test code = NRBC#) 0.03 K/mm3 0.0-0.1 N MANUAL DIFF REQUIRED (test code = MDIFF) NO, ONLY SCAN NEEDED DIFFERENTIAL [id number] 10:00:00* Test Item Value Reference Range Interpretation Comments STAIN ACCEPTABILITY (test code = STN ACCEPTABLE) CABOT RINGS (test code = CAB) MORPHOLOGY COMMENT (test code = MOC) PLATELET ESTIMATE (test code = PLTEST) PLATELET MORPHOLOGY (test code = PLTMORPH) [id number] 09:17:00* Test Item Value Reference Range Interpretation Comments TROPONIN-I (test code = TROPI) 0.030 ng/mL 0-0.045 N COMMENTS TO WATER SERVICE SUPERVISOR: COLLECT 3 HOURS AFTER PREVIOUS SAMPLEBASIC METABOLIC [id number] 09:10:00* Test Item Value Reference Range Interpretation Comments SODIUM (test code = NA) 144 mmol/L 136-145 N POTASSIUM (test code = K) 3.3 mmol/L 3.5-5.1 L CHLORIDE (test code = CL) 108.0 mmol/L 98-107 H CARBON DIOXIDE (test code = CO2) 26.0 mmol/L 21-32 N ANION GAP (test code = GAP) 13.3 10-20 N GLUCOSE (test code = GLU) 105 mg/dL 74-106 N BLOOD UREA NITROGEN (test code = BUN) 20 mg/dL 7-18 H GLOMERULAR FILTRATION RATE (test code = GFR) 32 mL/min >=60 Estimated GFR by using Modified MDRD formula.Chronic kidney disease is defined as either kidney damageor GFR <60 mL/min/1.73 m2 for >3 months. CREATININE (test code = CREAT) 1.60 mg/dL 0.55-1.02 H Note change in reference range due to change in reagent. BUN/CREATININE RATIO (test code = BUN/CREA) 12.8 10-20 N CALCIUM (test code = CA) 8.7 mg/dL 8.5-10.1 N LIPID PROFILE (CORONARY RISK)[id number] 09:10:00* Test Item Value Reference Range Interpretation Comments TRIGLYCERIDES (test code = TRIG) 96 mg/dL 20-150 N CHOLESTEROL (test code = CHOL) 180 mg/dL 0-200 N CHOLESTEROL/HDL RATIO (test code = CHOLHDL) 4.0 RATIO 0-4.9 N RISK ASSOCIATED WITH CHOL/HDL RATIOS: Risk Male Female1/2 AVERAGE 3.43 3.27AVERAGE 4.97 4.442X AVERAGE 9.55 7.053X AVERAGE 23.39 11.04 REFERENCE VALUE IS RELATED TO RISK LEVELS ASRECOMMENDED BY THE CHRISTINE. HEART, LUNG, AND BLOOD INST. HDL CHOLESTEROL (test code = HDL) 40 mg/dL 40-60 N LIPOPROTEIN LDL (test code = LDL) 121 mg/dL 100-129 N RN PERSONNEL, CONTACT PHYSICIAN IMMEDIATELY IF THIS IS A STROKE, AMI OR CAROTID STENOSIS PATIENT WHEN THE LDL >100 (1ST OCCURENCE, THIS ADMISSION) Reference Interval: mg/dL mmol/L Optimal <100 <2.6Near/above optimal 100-129 2.6- 3.3Borderline High 130-159 3.4-4.1High 160-189 4.1-4.9Very High >=190 >=4.9========= This LDL result is a direct measurement.========= BASIC METABOLIC [id number] 09:01:00* Test Item Value Reference Range Interpretation Comments SODIUM (test code = NA) 144 mmol/L 136-145 N POTASSIUM (test code = K) 3.3 mmol/L 3.5-5.1 L CHLORIDE (test code = CL) 108.0 mmol/L 98-107 H CARBON DIOXIDE (test code = CO2) mmol/L 21-32 ANION GAP (test code = GAP) 10-20 GLUCOSE (test code = GLU) mg/dL 74-106 BLOOD UREA NITROGEN (test code = BUN) mg/dL 7-18 GLOMERULAR FILTRATION RATE (test code = GFR) mL/min >=60 CREATININE (test code = CREAT) mg/dL 0.55-1.02 BUN/CREATININE RATIO (test code = BUN/CREA) 10-20 CALCIUM (test code = CA) mg/dL 8.5-10.1 LIPID PROFILE (CORONARY RISK)2019-04-23 09:01:00* Test Item Value Reference Range Interpretation Comments TRIGLYCERIDES (test code = TRIG) mg/dL 20-150 CHOLESTEROL (test code = CHOL) mg/dL 0-200 CHOLESTEROL/HDL RATIO (test code = CHOLHDL) RATIO 0-4.9 HDL CHOLESTEROL (test code = HDL) mg/dL 40-60 LIPOPROTEIN LDL (test code = LDL) mg/dL 100-129 [id number] 08:56:00* Test Item Value Reference Range Interpretation Comments GLUBED (test code = GLUBED) 100 mg/dL 74-106 N [facility] folding [facility]ified Nurse~ [id number] 06:51:00* Test Item Value Reference Range Interpretation Comments GLUBED (test code = GLUBED) 82 mg/dL 74-106 N Performed by certified flat folding machine operator at [facility] [id number] 03:01:00* Test Item Value Reference Range Interpretation Comments TROPONIN-I (test code = TROPI) 0.033 ng/mL 0-0.045 N COMMENTS TO WATER SERVICE SUPERVISOR: COLLECT 3 HOURS AFTER PREVIOUS SAMPLETHYROID STIMULATING [id number] 21:25:00* Test Item Value Reference Range Interpretation Comments THYROID STIMULATING HORMONE (test code = TSH) 7.070 uIU/mL 0.36-3.7 4 H TSH REFERENCE RANGES: EUTHYROID: 0.35 - 4.3 mIU/mL HYPO : > 5.5 mIU/mL HYPER : < 0.35 mIU/mL - XR CHEST 1 [id number] 18:59:00 FAX: Roger Alberto MD [phone] [place]: B St: REG Name: JUSTIN ADAME [facility] : [birth year] Age/S: 64/F [address] Unit #: [id number] Loc: [place] [address] Phys: Roger Alberto MD Acct: [id number] Dis Date: Status: REG ER PHONE #: [phone] Exam Date: 04/22/2019 185 FAX #: [phone] Reason: CODE SEPSIS EXAMS: CPT CODE: [id number] XR CHEST 1 V 29421 REASON FOR EXAM: CODE SEPS IS EXAM ORDER DATE: 04/22/2019 4:48 PM Ordering: Cristobal Alberto MD Attending:Roger Alberto MD Location:[facility] ROCEDURE: - XR CHEST 1 V COMPARISON: 04/08/2017 FIND INGS: Portable AP frontal view of the chest obtained at 6:48 PM shows ranad ar lungs without evidence of consolidation. There [...] 1 Signed Report - CT HEAD/BRAIN W/O [id number] 18:38:00 Name: JUSTIN MILLER [facility] : 1955 Age/S: 64 / F [address] Unit #: [id number] Loc: [place] [address] Phys: Roger Alberto MD Acct: [id number] Dis Date: Status: REG ER PHONE #: [phone] Exam Date: 04/22/20191821 FAX #: [phone] Reason: confusion EXAMS: CPT CODE: [id number] CT HEAD/BRAIN W/O CONT 96353 REASON FOR EXAM: confusion EXAM ORDER DATE: [...] Ortiz M.D. CC: Roger Alberto MD Technologist:PÉREZ WHALEY RT(R) CT CTDI: DLP: Trnscb Date/Time: 04/22/2019 (1837) tJOHNIE Orig Print D/T: S: 04/22/2019 (184) PAGE 1 Signed Report - CT ABD PELVIS W/O [id number] 18:37:00 Name: JUSTIN MILLER [facility] : 1955 Age/S: 64 / F [address] [facility] Unit #: [id number] Loc: [place], [place] [address] Phys: Cristobal Alberto MD Acct: [id number] Di s Date: Status: REG ER PHONE #: [phone] Exam Date: 04/22/20191821 FAX #: Reason: upper abd pain EXAMS: CPT CODE: [id number] CT ABD PELVIS W/O CONT 52391 REASON FOR EXAM: upper abd pain EXAM ORDER DATE: 04/22/2019 4:48 PM O rdering: Roger Alberto MD Attending:Roger Alberto MD Location: PROCEDURE: - CT ABD PELVIS W/O CONT COMPARISON: FINDINGS: CT images of the abdomen and pelvis were obtained without IV and without oral contrast at 5mm. Dose modulation, iterative reconstr uction, and/or weight based adjustment of the MA/KV was utilized to reduce the radiation dose to as low as reasonably achievable. The liver, spleen, pancreas are grossly within normal limits. The gall bl adder is unremarkable by CT. The kidneys are atrophic. The urinar y bladder is unremarkable. The colon, small bowel, and stomach are within normal limits without evidence of obstruction. The appendix was n ot seen No evidence of free air or free fluid. The patient is stat us post hysterectomy IMPRESSION: Atrophic kidneys suggesti ve of chronic medical renal disease. at 1837 Reported and signed by: Eduardo Ortiz M.D. CC: Roger Alberto MD Technologist:PÉREZ WHALEY, RT(R) CT CTDI: DLP: Trnsc b Date/Time: 04/22/2019 (183) [email or web address] Orig Print D/T: S: 04/22/2019 (741) PAGE 1 Signed Report URINALYSIS [id number] 18:30:00* Test Item Value Reference Range Interpretation Comments UA COLOR (test code = COLU) YELLOW YELLOW UA APPEARANCE (test code = APPU) HAZY CLEAR A UA GLUCOSE DIPSTICK (test code = DGLUU) NEGATIVE mg/dL NEGATIVE UA BILIRUBIN DIPSTICK (test code = BILU) NEGATIVE NEGATIVE UA KETONE DIPSTICK (test code = KETU) TRACE mg/dL NEGATIVE UA SPECIFIC GRAVITY (test code = SGU) 1.025 1.001-1.035 UA BLOOD DIPSTICK (test code = JYOTHI) NEGATIVE NEGATIVE UA PH DIPSTICK (test code = MOY) 6.0 5.0-8.0 UA PROTEIN DIPSTICK (test code = PROU) NEGATIVE mg/dL Neg-15 UA UROBILINIOGEN DIPSTICK (test code = URO) 1 mg/dL (1+) mg/dL 0.0 -0.2 UA NITRITE DIPSTICK (test code = CARLY) NEGATIVE NEGATIVE UA LEUKOCYTE ESTERASE W REFLEX (test code = LEUUR) 2+ NEG ATIVE A UA WBC (test code = WBCU) 6-10 per HPF 0-5 A UA RBC (test code = RBCU) 0-2 #/HPF 0-5 UA EPITHELIAL CELLS (test code = EPIU) FEW per HPF FEW UA BACTERIA (test code = BACU) FEW #/HPF NONE UA HYALINE CAST (test code = HYALU) 0-2 #/LPF 0-5 UA MUCUS (test code = MUCU) FEW #/LPF FEW Urine Source? Clean CatchURINALYSIS [id number] 18:27:00* Test Item Value Reference Range Interpretation Comments UA COLOR (test code = COLU) YELLOW YELLOW UA APPEARANCE (test code = APPU) HAZY CLEAR A UA GLUCOSE DIPSTICK (test code = DGLUU) NEGATIVE mg/dL NEGATIVE UA BILIRUBIN DIPSTICK (test code = BILU) NEGATIVE NEGATIVE UA KETONE DIPSTICK (test code = KETU) TRACE mg/dL NEGATIVE UA SPECIFIC GRAVITY (test code = SGU) 1.025 1.001-1.035 UA BLOOD DIPSTICK (test code = JYOTHI) NEGATIVE NEGATIVE UA PH DIPSTICK (test code = MOY) 6.0 5.0-8.0 UA PROTEIN DIPSTICK (test code = PROU) NEGATIVE mg/dL Neg-15 UA UROBILINIOGEN DIPSTICK (test code = URO) 1 mg/dL (1+) mg/dL 0.0 -0.2 UA NITRITE DIPSTICK (test code = CARLY) NEGATIVE NEGATIVE UA LEUKOCYTE ESTERASE W REFLEX (test code = LEUUR) 2+ NEG ATIVE A UA WBC (test code = WBCU) per HPF 0-5 UA RBC (test code = RBCU) per HPF 0-5 UA EPITHELIAL CELLS (test code = EPIU) per HPF Few UA BACTERIA (test code = BACU) per HPF NONE Urine Source? Clean CatchBASIC METABOLIC [id number] 17:28:00* Test Item Value Reference Range Interpretation Comments SODIUM (test code = NA) 142 mmol/L 136-145 N POTASSIUM (test code = K) 2.9 mmol/L 3.5-5.1 L Re sults called to [id number] by V.[email or web address] 04/22/19 1723Critical results verified and read back by Nurse? Y CHLORIDE (test code = CL) 104.0 mmol/L 98-107 N CARBON DIOXIDE (test code = CO2) 26.0 mmol/L 21-32 N ANION GAP (test code = GAP) 14.9 10-20 N GLUCOSE (test code = GLU) 108 mg/dL 74-106 H BLOOD UREA NITROGEN (test code = BUN) 23 mg/dL 7-18 H GLOMERULAR FILTRATION RATE (test code = GFR) 28 mL/min >=60 Estimated GFR by using Modified MDRD formula.Chronic kidney disease is defined as either kidney damageor GFR <60 mL/min/1.73 m2 for >3 months. CREATININE (test code = CREAT) 1.80 mg/dL 0.55-1.02 H Note change in reference range due to change in reagent. BUN/CREATININE RATIO (test code = BUN/CREA) 12.7 10-20 N CALCIUM (test code = CA) 9.5 mg/dL 8.5-10.1 N HEPATIC FUNCTION [id number] 17:28:00* Test Item Value Reference Range Interpretation Comments TOTAL PROTEIN (test code = PROT) 7.8 gram/dL 6.4-8.2 N ALBUMIN (test code = ALB) 3.8 g/dL 3.4-5.0 N GLOBULIN (test code = GLOB) 4.0 gram/dL 2.7-4.2 N ALBUMIN/GLOBULIN RATIO (test code = A/G) 1.0 0.75-1.50 N BILIRUBIN TOTAL (test code = BILT) 0.50 mg/dL 0.0-1.0 N BILIRUBIN DIRECT (test code = BILD) 0.14 mg/dL 0.0-0.20 N SGOT/AST (test code = AST) 25 IUnit/L 15-37 N SGPT/ALT (test code = ALT) 19 IUnit/L 12-78 N ALKALINE PHOSPHATASE TOTAL (test code = ALKP) 65 IUnit/L 45-117 N Note change in reference range due to change in reagent. [id number] 17:28:00* Test Item Value Reference Range Interpretation Comments LIPASE (test code = LIP) 166 U/L 73.0-393.0 N [id number] 17:28:00* Test Item Value Reference Range Interpretation Comments TROPONIN-I (test code = TROPI) <0.015 ng/mL 0-0.045 N LACTIC [id number] 17:28:00* Test Item Value Reference Range Interpretation Comments LACTIC ACID (test code = LACT) 1.8 mmol/L 0.4-1.9 N BASIC METABOLIC [id number] 17:24:00* Test Item Value Reference Range Interpretation Comments SODIUM (test code = NA) 142 mmol/L 136-145 N POTASSIUM (test code = K) 2.9 mmol/L 3.5-5.1 L Re sults called to [id number] by [email or web address] 04/22/19 1723Critical results verified and read back by Nurse? Y CHLORIDE (test code = CL) 104.0 mmol/L 98-107 N CARBON DIOXIDE (test code = CO2) mmol/L 21-32 ANION GAP (test code = GAP) 10-20 GLUCOSE (test code = GLU) mg/dL 74-106 BLOOD UREA NITROGEN (test code = BUN) mg/dL 7-18 GLOMERULAR FILTRATION RATE (test code = GFR) mL/min >=60 CREATININE (test code = CREAT) mg/dL 0.55-1.02 BUN/CREATININE RATIO (test code = BUN/CREA) 10-20 CALCIUM (test code = CA) mg/dL 8.5-10.1 HEPATIC FUNCTION [id number] 17:24:00* Test Item Value Reference Range Interpretation Comments TOTAL PROTEIN (test code = PROT) gram/dL 6.4-8.2 ALBUMIN (test code = ALB) g/dL 3.4-5.0 GLOBULIN (test code = GLOB) gram/dL 2.7-4.2 ALBUMIN/GLOBULIN RATIO (test code = A/G) 0.75-1.50 BILIRUBIN TOTAL (test code = BILT) mg/dL 0.0-1.0 BILIRUBIN DIRECT (test code = BILD) mg/dL 0.0-0.20 SGOT/AST (test code = AST) IUnit/L 15-37 SGPT/ALT (test code = ALT) IUnit/L 12-78 ALKALINE PHOSPHATASE TOTAL (test code = ALKP) IUnit/L 45-117 [id number] 17:24:00* Test Item Value Reference Range Interpretation Comments LIPASE (test code = LIP) U/L 73.0-393.0 [id number] 17:24:00* Test Item Value Reference Range Interpretation Comments TROPONIN-I (test code = TROPI) ng/mL 0-0.045 CBC W/AUTO [id number] 17:08:00* Test Item Value Reference Range Interpretation Comments WHITE BLOOD CELL (test code = WBC) 6.0 K/mm3 4.5-12.5 N RED BLOOD CELL (test code = RBC) 4.21 mill/mm3 3.7-5.2 N HEMOGLOBIN (test code = HGB) 11.9 gram/dL 11.5-15.5 N HEMATOCRIT (test code = HCT) 35.6 % 36.0-46.0 L MEAN CELL VOLUME (test code = MCV) 84.6 fL 80-98 N MEAN CELL HGB (test code = MCH) 28.3 picogram 27.0-33.0 N MEAN CELL HGB CONCETRATION (test code = MCHC) 33.4 gram/dL 33.0-36. 0 N RED CELL DISTRIBUTION WIDTH (test code = RDW) 14.4 % 11.6-16. 2 N RED CELL DISTRIBUTION WIDTH SD (test code = RDW-SD) 44.3 fL 37 .0-51.0 N PLATELET COUNT (test code = PLT) 172 K/mm3 150-450 N MEAN PLATELET VOLUME (test code = MPV) 9.9 fL 6.7-11.0 N NEUTROPHIL % (test code = NT%) 67.5 % 39.0-69.0 N IMMATURE GRANULOCYTE % (test code = IG%) 0.3 % 0.0-5.0 N LYMPHOCYTE % (test code = LY%) 25.7 % 25.0-55.0 N MONOCYTE % (test code = MO%) 4.7 % 0.0-10.0 N EOSINOPHIL % (test code = EO%) 1.3 % 0.0-5.0 N BASOPHIL % (test code = BA%) 0.5 % 0.0-1.0 N NUCLEATED RBC % (test code = NRBC%) 0.0 % 0-0 N NEUTROPHIL # (test code = NT#) 4.04 K/mm3 1.8-7.7 N IMMATURE GRANULOCYTE # (test code = IG#) 0.02 x10 3/uL 0-0.03 N LYMPHOCYTE # (test code = LY#) 1.54 K/mm3 1.0-5.0 N MONOCYTE # (test code = MO#) 0.28 K/mm3 0-0.8 N EOSINOPHIL # (test code = EO#) 0.08 K/mm3 0.0-0.5 N BASOPHIL # (test code = BA#) 0.03 K/mm3 0.0-0.2 N NUCLEATED RBC # (test code = NRBC#) 0.00 K/mm3 0.0-0.1 N CBC W/AUTO [id number] 17:07:00* Test Item Value Reference Range Interpretation Comments WHITE BLOOD CELL (test code = WBC) K/mm3 4.5-12.5 RED BLOOD CELL (test code = RBC) mill/mm3 3.7-5.2 HEMOGLOBIN (test code = HGB) 11.9 gram/dL 11.5-15.5 N HEMATOCRIT (test code = HCT) % 36.0-46.0 MEAN CELL VOLUME (test code = MCV) fL 80-98 MEAN CELL HGB (test code = MCH) picogram 27.0-33.0 MEAN CELL HGB CONCETRATION (test code = MCHC) gram/dL 33.0-36. 0 RED CELL DISTRIBUTION WIDTH (test code = RDW) % 11.6-16. 2 RED CELL DISTRIBUTION WIDTH SD (test code = RDW-SD) fL 37 .0-51.0 PLATELET COUNT (test code = PLT) K/mm3 150-450 MEAN PLATELET VOLUME (test code = MPV) fL 6.7-11.0 NEUTROPHIL % (test code = NT%) % 39.0-69.0 IMMATURE GRANULOCYTE % (test code = IG%) % 0.0-5.0 LYMPHOCYTE % (test code = LY%) % 25.0-55.0 MONOCYTE % (test code = MO%) % 0.0-10.0 EOSINOPHIL % (test code = EO%) % 0.0-5.0 BASOPHIL % (test code = BA%) % 0.0-1.0 NEUTROPHIL # (test code = NT#) K/mm3 1.8-7.7 LYMPHOCYTE # (test code = LY#) K/mm3 1.0-5.0 MONOCYTE # (test code = MO#) K/mm3 0-0.8 EOSINOPHIL # (test code = EO#) K/mm3 0.0-0.5 BASOPHIL # (test code = BA#) K/mm3 0.0-0.2 [U] XRAY SPINE CERVICAL 2 OR 3 VWS [id number] 10:35:00Images acquired, not reported on this accession number.[facility][U] XRAY SHOULDER MIN 2 VWS RIGHT [id number] 10:15:00Images acquired, not reported on this accession number.[facility]
--- OUTSIDE RECORDS SUMMARY | 2020-01-04 09:23 | XMS REPORT ---
Author Author JUSTIN Serrato [facility] eClinicalWorks Address Unknown Phone Unavailable Care Team Providers Care Litigation Partner Name Role Phone Real Serrato CP Unavailable Allergies No Known Allergies Problems Problem Type Condition Code Onset Dates Condition Statu s Problem Fibromyalgia 729.1 Active Problem Morbid (severe) obesity due to excess calories E66.01 Active Problem Inflammatory Arthritis 714.0 Activ e Problem Polyarthralgia 719.49 Active Problem Fibromyalgia M79.7 Active Problem FDC (current) use of systemic steroids Z79.52 Active Problem Rheumatoid arthritis without rheumatoid factor, multip le sites M06.09 Active Problem Fall (on) (from) unspecified stairs and steps, initial encounter W10.9XXA Active Problem Body mass index (BMI) 36.0-36.9, adult Z68.36 Active Problem Other penitentiary (current) drug therapy Z79.899 Active Problem Accidental fall from or out of building or other struc ture E882 Active Medications No Known Medications Results No Known Results Summary Purpose eClinicalWorks Submission
[2020-01-04] MEDS ORDERED: ASPIRIN 81 MG CHEW TAB PO ONE (09:45)
--- NOTE | 2020-01-04 09:47 | Diagnostic Imaging Report ---
Exam: Head CT without contrast History: History of TIAs and CVA with facial droop and left-sided weakness with onset x4 days ago. Comparison studies: Brain MRI 05/13/2019. Technique: Axial images were obtained from the skull base to the vertex. Coronal and sagittal images reconstructed from the axial data. Dose modulation, iterative reconstruction, and/or weight based adjustment of the mA/kV was utilized to reduce the radiation dose to as low as reasonably achievable. Radiation dose: Total DLP: 921.4 mGy*cm. Estimated effective dose: DLP x 0.015 Intravenous contrast: None Findings: Scalp: No abnormalities. Bones: No fractures, blastic or lytic lesions. Brain sulci: Appropriate for age. Ventricles: Normal in size and configuration. No hydrocephalus. Extra-axial spaces: No masses, no fluid collection. Parenchyma: A focal hypodensity along the right precentral deep and subcortical white matter is compatible with nonhemorrhagic infarct which is likely late acute to subacute. Chronic left inferior parietal infarct and infarct along the right inferior occipital gyrus within encephalomalacia and gliosis are unchanged. A few scattered subtle hypodensities in the supratentorial white matter are nonspecific but are most compatible with chronic microvascular ischemic changes. No mass or acute hemorrhage Sellar/suprasellar region: No abnormalities. Craniocervical junction: Patent foramen magnum. No Chiari one malformation. Incidental findings: Atherosclerotic calcifications in the carotid siphons. IMPRESSION: Late acute to subacute nonhemorrhagic infarct along the right precentral gyrus which could account for patient's localizing symptom of left-sided weakness. Chronic findings: 1. Small left parietal and right occipital infarcts. 2. Mild microvascular ischemic changes. Signed by: Dr. Js Vargas M.D. on 01/04/2020 9:44 AM
[2020-01-04 10:11] LABS: BASOPHILS # (AUTO) 0.1 (0.0-0.1); BASOPHILS % 0.8 % (0.0-1.0); EOSINOPHILS # (AUTO) 0.4 (0.0-0.4); HEMATOCRIT 41.1 % (34.2-44.1); HEMOGLOBIN 13.5 g/dL (12.0-16.0); LYMPHOCYTES # (AUTO) 1.8 (1.0-3.2); LYMPHOCYTES % 30.4 % (18.0-39.1); MEAN CORPUSCULAR HEMOGLOBIN 29.2 pg (28-32); MEAN CORPUSCULAR HGB CONC 32.8 g/dL (31-35); MEAN CORPUSCULAR VOLUME 88.8 fL (81-99); MONOCYTES # (AUTO) 0.4 (0.2-0.8); MONOCYTES % 5.9 % (4.4-11.3); NEUTROPHILS # (AUTO) 3.4 (2.1-6.9); NEUTROPHILS % 56.6 % (38.7-80.0); PLATELET COUNT 161 x10e3/uL (140-360); RED BLOOD COUNT 4.63 x10e6/uL (3.6-5.1); RED CELL DISTRIBUTION WIDTH 13.8 % (11.7-14.4)
[2020-01-04 10:13] LABS: BILIRUBIN,URINE NEGATIVE (NEGATIVE); CLARITY,URINE CLEAR (CLEAR); COLOR,URINE YELLOW (YELLOW); KETONES,URINE NEGATIVE (NEGATIVE); LEUKOCYTE ESTERASE ,URINE NEGATIVE (NEGATIVE); NITRITE,URINE NEGATIVE (NEGATIVE); PROTEIN,URINE DIPSTICK NEGATIVE (NEGATIVE); URINE UROBILINOGEN 0.2 mg/dL (0.2 - 1)
[2020-01-04 10:22] LABS: INR 0.87; PROTHROMBIN TIME 12.3 seconds (11.9-14.5)
[2020-01-04 10:27] LABS: BACTERIA,URINE FEW /HPF; EPITHELIAL CELLS,URINE FEW /LPF
[2020-01-04 10:30] LABS: ALBUMIN 3.8 g/dL (3.5-5.0); ALBUMIN/GLOBULIN RATIO 1.1 (0.8-2.0); ANION GAP 14.1 mmol/L (8-16); CREATININE, SERUM 1.69 mg/dL (0.57-1.11); POTASSIUM 3.1 mmol/L (3.5-5.1)
--- NOTE | 2020-01-04 10:59 | Emergency Department Note ---
History of Present Illnes History of Present Illness Chief Complaint: Neurological History of Present Illness This is a 64 year old female who presents for L sided weakness. Symp toms started 4 days ago. She has had this before and states she has had about 6 strokes. Her symptoms are consistent with her prior strokes. Not improving. Historian: Patient Arrival Mode: Car Regulatory Technician Required: No Onset (how long ago): day(s) (4) Location: L arm, leg, face Severity: moderate Onset quality: sudden Duration (how long): day(s) (4) Timing of current episode: constant Progression: unchanged Chronicity: recurrent Relieving factors: none Exacerbating factors: none Treatments prior to arrival: none Risk factors: Prior TIAs Past Medical/Family History Physician Review I have reviewed the patient's past medical and family history. Any updates have been documented here. Past Medical History Recent Fever: No Clinical Suspicion of Infectio: No New/Unexplained Change in Ment: No Past Medical History: Hypertension, CVA, TIA, UTI's, Anxiety, Depression, GERD, Chronic Kidney Disease Other Medical History: FIBROMYALGIA CLOSED FX DISTAL TIB/FIB DEMENTIA Past Surgical History: Appendectomy, Hysterectomy Other Surgery: BREAST REDUCTION LUMP REMOVED LEFT AXILLA Social History Smoking Cessation: Never Smoker Counseling Performed: No Alcohol Use: None Other Last Tetanus: >10yrs Any Pre-Existing Lines (PICC,: No Review of Systems Review of Systems Constitutional: Reports no symptoms EENTM: Reports no symptoms Cardiovascular: Reports no symptoms Respiratory: Reports no symptoms Gastrointestinal: Reports no symptoms Genitourinary: Reports no symptoms Musculoskeletal: Reports no symptoms Integumentary: Reports no symptoms Neurological: Reports no symptoms, Reports as per HPI, Reports headache, Reports numbness, Reports paresthesia, Reports pre-existing deficit, Reports seizure, Reports tingling, Reports tremors, Reports weakness (Left face, arm , leg), Reports other Psychological: Reports no symptoms Endocrine: Reports no symptoms Hematological/Lymphatic: Reports no symptoms Physical Exam Related Data Allergies: Coded Allergies: No Known Allergies (Unverified , 11/28/16) Triage Vital Signs Vital Signs Date Time Temp Pulse Resp B/P (MAP) Pulse Ox O2 Delivery O2 Flow Rate FiO2 01/04/20 09:13 98.4 65 18 158/89 100 Room Air Vital signs reviewed: Yes Physical Exam CONSTITUTIONAL Constitutional: Present well-developed, Present well-nourished HENT HENT: Present normocephalic, Present atraumatic, Present oropharynx clear/moist, Present nose normal, Present other (L sided facial droop) HENT L/R: Present left ext ear normal, Present right ext ear normal EYES Eyes: Reports PERRL, Reports conjunctivae normal NECK Neck: Present ROM normal PULMONARY Pulmonary: Present effort normal, Present breath sounds normal CARDIOVASCULAR Cardiovascular: Present regular rhythm, Present heart sounds normal, Present capillary refill normal, Present normal rate GASTROINTESTINAL Abdominal: Present soft, Present nontender, Present bowel sounds normal GENITOURINARY Genitourinary: Present exam deferred SKIN Skin: Present warm, Present dry MUSCULOSKELETAL Musculoskeletal: Present ROM normal, Present other (L arm and leg strength 4/5) NEUROLOGICAL Neurological: Present alert, Present oriented x 3, Present no gross motor or sensory deficits, Present cranial nerve deficit (L facial droop), Present weakness (L side of body) PSYCHOLOGICAL Psychological: Present mood/affect normal, Present judgement normal Results Laboratory Laboratory Laboratory Tests Test 01/04/20 09:45 01/04/20 09:43 Bedside Glucose 83 mg/dL (70-120) Assessment & Plan Medical Decision Making MDM 60 y.o F w/ PMH sign for many prior TIA's presents for L sided weakness. Exam shows left arm, leg facial weakness consistent with R sided stroke. CT head shows area of infarction on R side. She was given ASA and will be transferred to stroke center for further work up and management of her stroke. Transfer to [facility]. Spoke with Dr. Shi with Neurology and Dr[facility] brain: Late acute to subacute nonhemorrhagic infarct along the right precentral gyrus which could account for patient's localizing symptom of left-sided weakness. Reassessment Reassessment time: 10:53 Assessment & Plan Final Impression: (1) CVA (cerebral vascular accident) Depart Disposition: TRANS TO OTHER [facility] Last Vital Signs Date Time Temp Pulse Resp B/P (MAP) Pulse Ox O2 Delivery O2 Flow Rate FiO2 01/04/20 09:13 98.4 65 18 158/89 100 Room Air Home Meds Active Scripts Cyanocobalamin (VITAMIN B-12) 1,000 Mcg Tab, 1000 MCG PO DAILY for 30 Days, TAB Prov:JESSICA ANDERSON NP 05/14/19 Alprazolam (ALPRAZOLAM) 0.5 Mg Tablet, 0.5 MG PO BID PRN for ANXIETY, #14 Prov:JESSICA ANDERSON AIRFRAME TECHNICAL OFFICER 05/14/19 Donepezil Hcl (ARICEPT) 5 Mg Tablet, 10 MG PO HS for 30 Days Prov:JESSICA ANDERSON AIRFRAME TECHNICAL OFFICER 05/14/19 Reported Medications Prazosin Hcl (PRAZOSIN HCL) 1 Mg Capsule, 1 MG PO HS 05/13/19 Sertraline Hcl (SERTRALINE HCL) 100 Mg Tablet, 200 MG PO DAILY, TAB 05/12/19 Trazodone Hcl (TRAZODONE HCL) 50 Mg Tablet, 100 MG PO HS PRN for INSOMNIA, #30 TAB 05/12/19 Losartan Potassium (LOSARTAN POTASSIUM) 25 Mg Tablet, 25 MG PO DAILY 05/12/19 Omeprazole (OMEPRAZOLE) 40 Mg Capsule.dr, 20 MG PO DAILY 05/12/19 Atorvastatin Calcium (ATORVASTATIN CALCIUM) 20 Mg Tablet, 40 MG PO HS, #30 TAB 05/12/19 Hydrochlorothiazide (HYDROCHLOROTHIAZIDE) 25 Mg Tablet, 50 MG PO DAILY, #30 TAB 05/12/19 Medications in the ED Aspirin 324 mg ONCE ONCE PO ; Start 01/04/20 at 09:45; Stop 01/04/20 at 09:46; Status DC Mio Perez MD Jan 04, 2020 10:14
== END 2020-01-04 13:00 | disposition other institution (70) ==
LOC: ER 09:20
DX: I63.9 Cerebral infarction, unspecified (principal); I12.9 Hypertensive chronic kidney disease with stage 1 through stage 4 chronic kidney disease, or unspecified chronic kidney disease; N18.9 Chronic kidney disease, unspecified; M79.7 Fibromyalgia; K21.9 Gastro-esophageal reflux disease without esophagitis; F41.9 Anxiety disorder, unspecified
CPT/HCPCS: 36415; 70450; 80053; 81001; 82948; 84484; 85025; 85610; 93005; 99284; U0002